=== PATIENT | female | born 1985 | race Caucasian/White ===

== ENCOUNTER 2018-01-05 10:30 | Emergency (ER) | payer MEDICAID, SELFPAY ==
[2018-01-05 10:33] VITALS: BP 114/71; PULSE 93; RESP 16; TEMP 37.1; O2SAT 97
--- NOTE | 2018-01-05 11:41 | W.ED.GENAD ---
Discharge Plan Disposition Patient Disposition: HOME Condition: Stable Discharge Details Chief Complaint: Cellulitis Clinical Impression: Bacterial infection of skin, Stress at home, Folliculitis Primary Care Provider: Natali Edmonds ED Provider: Carie Joseph Home Meds and New Rx's Prescriptions: New clindamycin HCl 150 mg capsule 450 mg PO TID 7 Days Qty: 63 RF: 0 Continue inhalational spacing device [Aerochamber Plus Flow-Vu] 1 EACH spacer 1 ea Miscellaneous QID PRNQty: 1 RF: 0 buprenorphine-naloxone [Suboxone] 1 EACH film 10 mg Sublingual DAILY RF: 0 etonogestrel [Nexplanon] 68 MG implant 68 mg SQ q3yr Qty: 1 RF: 0 fluticasone-salmeterol [Advair HFA] 8 GM HFA aerosol inhaler 2 puff Inhalation BID Qty: 1 RF: 1 citalopram 20 MG tablet 20 mg PO DAILY Qty: 30 RF: 2 ibuprofen 600 MG tablet 600 mg PO QID PRNQty: 120 RF: 1 albuterol sulfate [Proventil HFA] 6.7 GM HFA aerosol inhaler 1 - 2 puff Inhalation Q6H PRN Qty: 1 RF: 6 gabapentin 300 MG capsule 300 mg PO BID PRNQty: 60 RF: 0 methylphenidate HCl 36 MG tablet extended release 24hr 36 mg PO DAILY Qty: 30 RF: 0 fluticasone 16 GM spray,suspension 2 spry NS DAILY Qty: 3 RF: 1 propranolol 10 MG tablet 5 mg PO BID RF: 0 Discharge Instructions Instructions: Folliculitis (ED) Additional Instructions: Apply warm compresses to the affected area several times daily for 2 minutes at a time. Alternate Tylenol and Motrin as needed and directed for pain. If you no relief or you develop any worsening of symptoms, he may start the oral antibiotics. Follow-up the primary care doctor in 1 week for reevaluation. Return to the emergency department for any worsening or new concerning symptoms. Discharge Data Discharge Date/Time-TO BE ENTERED AT DEPARTURE: 01/05/18 13:39 Discharge Physician: Carie Joseph Medical Decision Making Patient is a 32-year-old female who presents with a painful lump in her perineal region for the past 5 days. Patient states it popped on its own and has been draining white and bloody discharge. Patient states the pain is improved and mainly feels sore now. She also admits to occasional nausea, decreased p.o. intake and fatigue. She denies known fever but admits to sweats. She denies abdominal pain, vomiting, diarrhea, urinary symptoms. Patient appears nontoxic and in no acute distress. She does appear mildly anxious. She does admit to stress with home life with a recent court case and filing papers for possible divorce. Vitals within normal limits. Perineal region notes a 1 x 1 cm tender lump but no discrete abscess noted. She has multiple papules in the genital region consistent with shaving and a mild folliculitis but no obvious abscess, induration or fluctuance. Patient was offered lab work for her fatigue and nausea but she declined stating she will follow-up with her primary care doctor for this. She would like a urinalysis to assess for a UTI. I discussed with patient that her perineal lump does not need incision and drainage and that warm compresses and topical antibiotics likely will be sufficient. Patient is requesting a prescription for PO antibiotics. 1300 -- UA negative for infection, notes high specific gravity consistent with possibly dehydration. She declines IV fluids and would rather go home and drink fluids. Patient feels good to go home. We will send home with a prescription for clindamycin. She is instructed to first try warm compresses, topical antibiotics, Motrin or Tylenol and that if symptoms do not improve or worsen, she can start the antibiotics. She is instructed to call her primary care doctor today to schedule follow-up appointment for reevaluation and return here if worse. HPI General Mode of arrival: ambulatory. Date/Time Provider Initiated Documentation: 01/05/18 10:40. Limitations to Documentation: no limitations. Information obtained by: patient. HPI Narrative: Patient is a 32-year-old female who presents with a painful lump in her perineal region for the past 5 days. Patient states she initially squeezed it and then it popped on its own and has been draining white and bloody discharge. Patient states the pain is improved and mainly feels sore now. She also admits to occasional nausea, decreased p.o. intake and fatigue. She denies known fever but admits to sweats. She denies abdominal pain, vomiting, diarrhea, urinary symptoms. Patient states she last took ibuprofen at 8 AM this morning. States she was last on amoxicillin a few months ago. Past medical history: Anxiety, seizures, kidney stone Surgical history: Lithotripsy, Bartholin's cyst drainage and Word catheter, Social history: Smokes tobacco, denies alcohol or drugs Medications: See list Allergies: Tetracycline, codeine, sulfa PCP: [facility] Related Data Home Medications Medication Instructions Recorded Confirmed inhalational spacing device #1 aer 12/22/14 01/05/18 [Aerochamber Plus Flow-Vu] buprenorphine-naloxone [Suboxone] 10 mg SUBLINGUAL DAILY film 02/23/16 01/05/18 etonogestrel [Nexplanon] 68 mg SQ q3yr #1 implant 11/28/16 01/05/18 citalopram 20 mg PO DAILY #30 tab 04/17/17 01/05/18 fluticasone-salmeterol [Advair HFA] 2 puff INHALATION BID #1 inhaler 04/17/17 01/05/18 ibuprofen 600 mg PO QID PRN #120 tab-cap 06/19/17 01/05/18 albuterol sulfate [Proventil HFA] 1 - 2 puff INHALATION Q6H PRN #1 07/25/17 01/05/18 inhaler gabapentin 300 mg PO BID PRN #60 cap 09/21/17 01/05/18 methylphenidate HCl 36 mg PO DAILY #30 tab-cap 09/21/17 01/05/18 fluticasone 2 spry NS DAILY #3 bottle 11/20/17 01/05/18 clindamycin HCl 450 mg PO TID 7 Days #63 cap 01/05/18 propranolol 5 mg PO BID 01/05/18 01/05/18 Previous Rx's Medication Instructions Recorded citalopram 20 mg PO DAILY #30 tab 04/17/17 fluticasone-salmeterol [Advair HFA] 2 puff INHALATION BID #1 inhaler 04/17/17 albuterol sulfate [Proventil HFA] 1 - 2 puff INHALATION Q6H PRN #1 07/25/17 inhaler fluticasone 2 spry NS DAILY #3 bottle 11/20/17 clindamycin HCl 450 mg PO TID 7 Days #63 cap 01/05/18 Allergies Allergy/AdvReac Type Severity Reaction Status Date / Time tetracycline [Tetracycline] Allergy Severe Skin Rash Unverified 01/05/18 12:08 codeine AdvReac Severe Nausea Unverified 01/05/18 12:08 Sulfa (Sulfonamide AdvReac Intermediate vomiting Unverified 01/05/18 12:08 Antibiotics) General Stated Complaint: Cellulitis KORTNEY: 4 Review of Systems Review of Systems All systems reviewed & are unremarkable except as noted in HPI and below PFSH Family History Mother Substance abuse Depression Father Essential hypertension Hyperlipidemia Sister No problems noted. Sister No problems noted. Grandmother No problems noted. Grandmother Cerebrovascular accident Son No problems noted. Son No problems noted. Medical History Anxiety Interstitial cystitis (07/23/15) Methadone maintenance therapy patient Pelvic floor dysfunction (07/23/15) Renal stone (10/13/14) Social History Smoking/Tobacco Use Status: Current every day Surgical History (09/16/13) Cystoscopy Exam Const General: cooperative and healthy appearing Orientation: alert and awake HENMT Head: normal to inspection Ears: hearing grossly normal bilaterally and external ears normal General nose exam: external nose normal Face and sinus: normal facial exam Eyes General: appearance normal, both eyes and all related structures Eyelids: eyelids normal EOM: EOM intact bilaterally Neck Neck: normal visual inspection Lymphatic: no lymphadenopathy noted Chest Chest: normal inspection of the chest Resp Effort & Inspection: normal respiratory effort and able to speak in complete sentences Auscultation: clear to auscultation bilaterally Cardio Rate: regular rate Rhythm: regular rhythm GI Inspection: normal to inspection Palpation: soft, not firm, no guarding, no hepatosplenomegaly, no masses and nontender Auscultation: normal bowel sounds External Female Exam: other (4 x 4 mm tender indurated nodule-like mass in the left posterior labia majora/left thigh. No surrounding fluctuance, erythema, edema, induration, red streaking.) Other: No vaginal discharge noted. Neuro General: alert and awake Cognition: normal cognition Speech: speech normal Gait: normal gait Motor: muscle tone normal throughout Extrem General: normal to inspection and full ROM Psych Appearance: grossly normal Mental Status: mental status grossly normal Speech and Movement: speech and movement normal Affect: normal affect Thought Process: normal Course Vital Signs Temperature 98.8 F 01/05/18 10:33 Pulse 93 H 01/05/18 10:33 Respiratory Rate 16 01/05/18 10:33 Blood Pressure 114/71 01/05/18 10:33 Pulse Oximetry 97 01/05/18 10:33 Temperature 98.8 F 01/05/18 10:33 Temperature Source Skin 01/05/18 10:33 Pulse 93 H 01/05/18 10:33 Respiratory Rate 16 01/05/18 10:33 Blood Pressure 114/71 01/05/18 10:33 Blood Pressure Position Sitting 01/05/18 10:33 Pulse Oximetry 97 01/05/18 10:33 Oxygen Delivery Method Room Air 01/05/18 10:33 Oxygen Flow Rate 0 01/05/18 10:33 Pain Level 1 01/05/18 10:33 Comment states periods have been a little off lately 01/05/18 10:33
[2018-01-05 11:49] LABS: Bilirubin Negative (Negative); Blood Negative (Negative); Clarity Clear; Glucose Negative (Negative); Ketones Negative (Negative); Leukocyte Esterase Negative (Negative); Nitrite Negative (Negative); Specific Gravity >= 1.030 (1.005-1.025); Urobilinogen 0.2 EU/dL (Up TO 0.2); pH 5.5 (5-8)
== END 2018-01-05 13:39 | disposition home or self-care (01) ==
PROVIDERS: Emergency Provider Physician Assistant
DX: L08.89 Other specified local infections of the skin and subcutaneous tissue (principal); L73.9 Follicular disorder, unspecified; Z63.5 Disruption of family by separation and divorce; R11.0 Nausea
CPT/HCPCS: 81025; 99283; 81003

== ENCOUNTER 2018-02-01 14:10 | Outpatient (REF) | payer MEDICAID, SELFPAY ==
[2018-02-02 16:36] LABS: Chlamydia Result Negative; GC Result Negative; Specimen Description URINE
== END 2018-02-01 14:30 ==
LOC: LBN 14:10
PROVIDERS: Visit Provider Nurse Practitioner Women's Health
DX: Z11.3 Encounter for screening for infections with a predominantly sexual mode of transmission (principal)
CPT/HCPCS: 87491; 87591

== ENCOUNTER 2018-02-22 09:52 | Outpatient (CLI) | payer MEDICAID, SELFPAY ==
[2018-02-22 13:18] LABS: ALT 17 U/L (12-78); AST 16 U/L (15-37); Albumin 3.7 g/dL (3.4-5.0); Alkaline Phosphatase 62 U/L (46-116); Anion Gap 12.3 mmol/L (3-11); BUN 16 mg/dL (7-18); Bilirubin, Total 0.4 mg/dL (0.2-1.0); CO2 24.7 mmol/L (21.0-32.0); CREATININE 0.69 mg/dL (0.55-1.02); Calcium 9.3 mg/dL (8.5-10.1); Chloride 102 mmol/L (98-107); Cholesterol 199 mg/dL (50-200); Glucose 106 mg/dL (70-100); HDL Cholesterol 70 mg/dL (40-60); LDL CHOLESTEROL 114 mg/dL (<100); Potassium 4.2 mmol/L (3.5-5.1); Sodium 139 mmol/L (136-145); Total Protein 6.8 g/dL (6.4-8.2); Triglyceride 72 mg/dL (30-150)
[2018-02-23 13:15] LABS: Hepatitis C Ab w Rflx HCV PCR Reactive (NEGAT)
[2018-03-06 14:35] LABS: HCV RNA Detection Quantitative Undetected IU/mL (UNDECT)
== END 2018-02-22 10:12 ==
PROVIDERS: PCP Nurse Practitioner Family; Visit Provider Nurse Practitioner Family
DX: R53.83 Other fatigue (principal); F41.1 Generalized anxiety disorder; F17.290 Nicotine dependence, other tobacco product, uncomplicated; Z87.898 Personal history of other specified conditions; Z11.59 Encounter for screening for other viral diseases
CPT/HCPCS: 80053; 80061; 82306; 83721; 86803; 87522

== ENCOUNTER 2018-03-28 10:58 | Emergency (ER) | payer MEDICAID, SELFPAY ==
--- NOTE | 2018-03-28 11:04 | W.ED.GENAD ---
Discharge Plan Disposition Patient Disposition: HOME Condition: Fair Discharge Details Chief Complaint: RespSymp Clinical Impression: Influenza Primary Care Provider: Nika Michaud ED Provider: Tita Pulido Home Meds and New Rx's Prescriptions: New benzonatate [Tessalon Perles] 100 mg capsule 100 mg PO QID PRN (Reason: cough) Qty: 14 RF: 0 Continued norgestimate-ethinyl estradiol [Sprintec (28)] 0.25-35 mg-mcg tablet 1 tab PO DAILY Qty: 84 RF: 3 amoxicillin-pot clavulanate 875-125 mg tablet 1 tab PO BID Qty: 14 RF: 0 citalopram 20 mg tablet 20 mg PO DAILY Qty: 90 RF: 4 inhalational spacing device [Aerochamber Plus Flow-Vu] 1 EACH spacer 1 ea Miscellaneous QID PRNQty: 1 RF: 0 buprenorphine-naloxone [Suboxone] 1 EACH film 10 mg Sublingual DAILY RF: 0 albuterol sulfate [Proventil HFA] 6.7 GM HFA aerosol inhaler 1 - 2 puff Inhalation Q6H PRN Qty: 1 RF: 6 cholecalciferol (vitamin D3) 50,000 unit capsule 50,000 unit PO QWEEK Qty: 8 RF: 0 cholecalciferol (vitamin D3) 2,000 unit capsule 2,000 unit PO DAILY Qty: 90 RF: 4 Discharge Instructions Instructions: Influenza (ED) Additional Instructions: Encourage hydration. Tylenol and/or Motrin as needed for discomfort. Take Tessalon Perles as prescribed to help with cough. If you develop shortness of breath, difficulty breathing, or other new/worsening symptoms please seek care urgently once again. Follow up with primary care within the next week if not improving. Referrals: Nika Michaud, [facility] [Primary Care Provider] - Medical Decision Making Patient is a 33-year-old female presenting today with chief complaint of flulike symptoms. She reports that over the weekend her son was evaluated emergency department and diagnosed with that. He was placed on Tamiflu. She is concerned that she may contract the same illness. Reports that symptoms have been going on over 3 days now. Endorses bilateral ear discomfort, rhinorrhea, sore throat, cough. She reports she has chronic nausea which is unchanged. No vomiting or diarrhea. Endorses body aches. Has had chills. On exam, no acute abnormality is are noted. She does have a dry cough but lungs are clear, no wheezes rales or rhonchi. Patient is slightly tachycardic at 101 but afebrile with vital signs otherwise within normal limits. Patient is hydrating. She does have a history of anxiety, depression, GERD, kidney stones, narcotic abuse UPT negative Advised patient that at this point, she is not immunocompromised and is out of the window to begin Tamiflu, no treatment is warranted. I did offer influenza testing which she declined. Given her son's recent positive test as well as her symptoms, advised that she likely contracted the same illness. I encouraged hand hygiene. We discussed the risks associated with influenza and new/worsening symptoms to be mindful of that should prompt her to seek care urgently once again. Advise follow-up with primary care in 1 week if symptoms are not improving. All of her questions and concerns were addressed and she is in agreement this plan. Will prescribe Tessalon Perles to help with symptom medic management. HPI General Mode of arrival: ambulatory. Date/Time Provider Initiated Documentation: 03/28/18 10:58. Limitations to Documentation: no limitations. Information obtained by: patient. History of Present Illness 33 year old F presents to the emergency department with the chief complaint of URI, described as moderate, and is localized to the face (endorsing bilateral ear discomfort) and mouth (sore throat). Patient reports no radiation. Patient started experiencing this day(s) (3) and it has been constant. No relieving factors improve symptom(s), No exacerbating factors reported . Patient notes cough, fever/chills (endorses chills, no documented fevers), nausea/vomiting (endorses chronic, unchanged nausea) and shortness of breath (with cough); denies chest pain, headaches, loss of appetite, rash and syncope. Patient did receive the following treatments prior to arrival, none Related Data Home Medications Medication Instructions Recorded Confirmed inhalational spacing device #1 aer 12/22/14 02/21/18 [Aerochamber Plus Flow-Vu] buprenorphine-naloxone [Suboxone] 10 mg SUBLINGUAL DAILY film 02/23/16 02/21/18 albuterol sulfate [Proventil HFA] 1 - 2 puff INHALATION Q6H PRN #1 07/25/17 02/21/18 inhaler norgestimate 0.25 mg-ethinyl 1 tab PO DAILY #84 tab 02/01/18 02/21/18 estradiol 35 mcg tablet amoxicillin 875 mg-potassium 1 tab PO BID #14 tab 02/21/18 02/21/18 clavulanate 125 mg tablet citalopram 20 mg tablet 20 mg PO DAILY #90 tab 02/21/18 02/21/18 cholecalciferol (vitamin D3) 2,000 2,000 unit PO DAILY #90 cap 02/25/18 unit capsule cholecalciferol (vitamin D3) 50,000 unit PO QWEEK #8 cap 02/25/18 50,000 unit capsule benzonatate [Tessalon Perles] 100 mg PO QID PRN #14 cap 03/28/18 Previous Rx's Medication Instructions Recorded albuterol sulfate [Proventil HFA] 1 - 2 puff INHALATION Q6H PRN #1 07/25/17 inhaler norgestimate 0.25 mg-ethinyl 1 tab PO DAILY #84 tab 02/01/18 estradiol 35 mcg tablet amoxicillin 875 mg-potassium 1 tab PO BID #14 tab 02/21/18 clavulanate 125 mg tablet citalopram 20 mg tablet 20 mg PO DAILY #90 tab 02/21/18 cholecalciferol (vitamin D3) 2,000 2,000 unit PO DAILY #90 cap 02/25/18 unit capsule cholecalciferol (vitamin D3) 50,000 unit PO QWEEK #8 cap 02/25/18 50,000 unit capsule benzonatate [Tessalon Perles] 100 mg PO QID PRN #14 cap 03/28/18 Allergies Allergy/AdvReac Type Severity Reaction Status Date / Time tetracycline [Tetracycline] Allergy Severe Skin Rash Unverified 02/21/18 14:18 codeine AdvReac Severe Nausea Unverified 02/21/18 14:18 Sulfa (Sulfonamide AdvReac Intermediate vomiting Unverified 02/21/18 14:18 Antibiotics) General KORTNEY: 4 Review of Systems Constitutional Reports as per HPI and Denies headache(s) Eyes Reports as per HPI, Denies eye discharge and Denies irritation ENT Reports as per HPI, Denies ear discharge, Reports otalgia, Denies headache(s), Denies hoarseness, Reports nasal congestion, Reports nasal discharge, Reports neck pain (reports enlarged lymphnodes which are tender), Denies sinus pain, Reports sinus pressure, Reports sore throat and Denies throat swelling Cardiovascular Reports as per HPI, Denies chest pain, Reports dyspnea (with cough) and Denies dyspnea on exertion Respiratory Reports as per HPI, Denies chest congestion, Reports cough, Reports dyspnea (with cough), Denies dyspnea on exertion and Denies wheezing Gastrointestinal Reports as per HPI, Denies abdominal pain, Denies change in bowel habits, Reports nausea and Denies vomiting Musculoskeletal Reports neck pain (reports enlarged lymphnodes which are tender) Integumentary/Breasts Reports as per HPI and Denies rash Neurologic Denies headache(s) Allergic/Immunologic Denies throat swelling and Denies wheezing [facility] Medical History Generalized anxiety disorder (Chronic) History of heroin abuse (Chronic 04/21/15) Interstitial cystitis (Resolved 07/23/15) Methadone maintenance therapy patient (Resolved) Narcotic overdose (Resolved) Pelvic floor dysfunction (Resolved 07/23/15) Renal stone (Resolved 10/13/14) Hepatitis C antibody test positive (Ruled-out 03/09/16) Surgical History (09/16/13) Cystoscopy Social History Smoking/Tobacco Use Status: Current every day tobacco type: e-cigarettes quit status: quit date established History History 3 Para 0 Hx # Term Pregnancies Multiple births Hx # Pregnancies Ectopic pregnancies AB induced Hx Number of Living Children AB spontaneous Exam Const General: cooperative, healthy appearing, comfortable, no acute distress, well developed and well groomed Nutritional Appearance: average body habitus and well nourished Orientation: alert and awake HENCO Head: normal to inspection, normocephalic and atraumatic Ears: hearing grossly normal bilaterally, external ears normal and TM's normal bilaterally General nose exam: external nose normal and nares normal Face and sinus: normal facial exam, sinuses nontender and face symmetric Mouth: oral mucosae normal, lip normal, tongue normal, oropharynx normal and moist mucous membranes Teeth and gingiva: dentition normal Throat: posterior oropharynx normal, tonsils normal and uvula midline Eyes General: appearance normal, both eyes and all related structures Neck Neck: normal visual inspection, full ROM, no lymphadenopathy and no meningeal signs Resp Effort & Inspection: normal respiratory effort, able to speak in complete sentences and no respiratory distress Auscultation: clear to auscultation bilaterally, no rales, no rhonchi and no wheezes Cardio Rate: regular rate Rhythm: regular rhythm Heart Sounds: S1 normal and S2 normal GI Inspection: normal to inspection, no edema and non-distended Palpation: soft, no hepatosplenomegaly, no guarding and nontender Auscultation: normal bowel sounds Skin General skin exam: no rashes or lesions noted Neuro General: alert and awake Cognition: normal cognition Speech: speech normal Gait: normal gait Psych Appearance: grossly normal and well kempt Mental Status: mental status grossly normal Speech and Movement: speech and movement normal
[2018-03-28 11:05] VITALS: BP 132/76; PULSE 101; RESP 18; TEMP 36.5; O2SAT 98
--- NOTE | 2018-03-28 11:23 | ED.GENADUL_ITS ---
Discharge Plan Disposition Patient Disposition: HOME Condition: Fair Discharge Details Chief Complaint: RespSymp Clinical Impression: Influenza Primary Care Provider: Nika Michaud ED Provider: Tita Pulido Home Meds and New Rx's Prescriptions: New benzonatate [Tessalon Perles] 100 mg capsule 100 mg PO QID PRN (Reason: cough) Qty: 14 RF: 0 Continued norgestimate-ethinyl estradiol [Sprintec (28)] 0.25-35 mg-mcg tablet 1 tab PO DAILY Qty: 84 RF: 3 amoxicillin-pot clavulanate 875-125 mg tablet 1 tab PO BID Qty: 14 RF: 0 citalopram 20 mg tablet 20 mg PO DAILY Qty: 90 RF: 4 inhalational spacing device [Aerochamber Plus Flow-Vu] 1 EACH spacer 1 ea Miscellaneous QID PRNQty: 1 RF: 0 buprenorphine-naloxone [Suboxone] 1 EACH film 10 mg Sublingual DAILY RF: 0 albuterol sulfate [Proventil HFA] 6.7 GM HFA aerosol inhaler 1 - 2 puff Inhalation Q6H PRN Qty: 1 RF: 6 cholecalciferol (vitamin D3) 50,000 unit capsule 50,000 unit PO QWEEK Qty: 8 RF: 0 cholecalciferol (vitamin D3) 2,000 unit capsule 2,000 unit PO DAILY Qty: 90 RF: 4 Discharge Instructions Instructions: Influenza (ED) Additional Instructions: Encourage hydration. Tylenol and/or Motrin as needed for discomfort. Take Tessalon Perles as prescribed to help with cough. If you develop shortness of breath, difficulty breathing, or other new/worsening symptoms please seek care urgently once again. Follow up with primary care within the next week if not improving. Referrals: Nika Michaud, KENNEL AIDE [Primary Care Provider] - Medical Decision Making Patient is a 33-year-old female presenting today with chief complaint of flulike symptoms. She reports that over the weekend her son was evaluated emergency department and diagnosed with that. He was placed on Tamiflu. She is concerned that she may contract the same illness. Reports that symptoms have been going on over 3 days now. Endorses bilateral ear discomfort, rhinorrhea, sore throat, cough. She reports she has chronic nausea which is unchanged. No vomiting or diarrhea. Endorses body aches. Has had chills. On exam, no acute abnormality is are noted. She does have a dry cough but lungs are clear, no wheezes rales or rhonchi. Patient is slightly tachycardic at 101 but afebrile with vital signs otherwise within normal limits. Patient is hydrating. She does have a history of anxiety, depression, GERD, kidney stones, narcotic abuse UPT negative Advised patient that at this point, she is not immunocompromised and is out of the window to begin Tamiflu, no treatment is warranted. I did offer influenza testing which she declined. Given her son's recent positive test as well as her symptoms, advised that she likely contracted the same illness. I encouraged hand hygiene. We discussed the risks associated with influenza and ne w/worsening symptoms to be mindful of that should prompt her to seek care urgently once again. Advise follow-up with primary care in 1 week if symptoms are not improving. All of her questions and concerns were addressed and she is in agreement this plan. Will prescribe Tessalon Perles to help with symptom medic management. HPI General Mode of arrival: ambulatory . Date/Time Provider Initiated Documentation: 03/28/18 10:58 . Limitations to Documentation: no limitations . Information obtained by: patient . History of Present Illness 33 year old F presents to the emergency department with the chief complaint of URI, described as moderate, and is localized to the face (endorsing bilateral ear discomfort) and mouth (sore throat). Patient reports no radiation. Patient started experiencing this day(s) (3) and it has been constant. No relieving factors improve symptom(s), No exacerbating factors reported . Patient notes cough, fever/chills (endorses chills, no documented fevers), nausea/vomiting (endorses chronic, unchanged nausea) and shortness of breath (with cough); denies chest pain, headaches, loss of appetite, rash and syncope. Patient did receive the following treatments prior to arrival, none Related Data Home Medications Medication Instructions Recorded Confirmed inhalational spacing device #1 aer 12/22/14 02/21/18 [Aerochamber Plus Flow-Vu] buprenorphine-naloxone [Suboxone] 10 mg SUBLINGUAL DAILY film 02/23/16 02/21/18 albuterol sulfate [Proventil HFA] 1 - 2 puff INHALATION Q6H PRN #1 07/25/17 02/21/18 inhaler norgestimate 0.25 mg-ethinyl 1 tab PO DAILY #84 tab 02/01/18 02/21/18 estradiol 35 mcg tablet amoxicillin 875 mg-potassium 1 tab PO BID #14 tab 02/21/18 02/21/18 clavulanate 125 mg tablet citalopram 20 mg tablet 20 mg PO DAILY #90 tab 02/21/18 02/21/18 cholecalciferol (vitamin D3) 2,000 2,000 unit PO DAILY #90 cap 02/25/18 unit capsule cholecalciferol (vitamin D3) 50,000 unit PO QWEEK #8 cap 02/25/18 50,000 unit capsule benzonatate [Tessalon Perles] 100 mg PO QID PRN #14 cap 03/28/18 Previous Rx's Medication Instructions Recorded albuterol sulfate [Proventil HFA] 1 - 2 puff INHALATION Q6H PRN #1 07/25/17 inhaler norgestimate 0.25 mg-ethinyl 1 tab PO DAILY #84 tab 02/01/18 estradiol 35 mcg tablet amoxicillin 875 mg-potassium 1 tab PO BID #14 tab 02/21/18 clavulanate 125 mg tablet citalopram 20 mg tablet 20 mg PO DAILY #90 tab 02/21/18 cholecalciferol (vitamin D3) 2,000 2,000 unit PO DAILY #90 cap 02/25/18 unit capsule cholecalciferol (vitamin D3) 50,000 unit PO QWEEK #8 cap 02/25/18 50,000 unit capsule benzonatate [Tessalon Perles] 100 mg PO QID PRN #14 cap 03/28/18 Allergies Allergy/AdvReac Type Severity Reaction Status Date / Time tetracycline [Tetracycline] Allergy Severe Skin Rash Unverified 02/21/18 14:18 codeine AdvReac Severe Nausea Unverified 02/21/18 14:18 Sulfa (Sulfonamide AdvReac Intermediate vomiting Unverified 02/21/18 14:18 Antibiotics) General KORTNEY: 4 Review of Systems Constitutional Reports as per HPI and Denies headache(s) Eyes Reports as per HPI, Denies eye discharge and Denies irritation ENT Reports as per HPI, Denies ear discharge, Reports otalgia, Denies headache(s), Denies hoarseness, Reports nasal congestion, Reports nasal discharge, Reports neck pain (reports enlarged lymphnodes which are tender), Denies sinus pain, Reports sinus pressure, Reports sore throat and Denies throat swelling Cardiovascular Reports as per HPI, Denies chest pain, Reports dyspnea (with cough) and Denies dyspnea on exertion Respiratory Reports as per HPI, Denies chest congestion, Reports cough, Reports dyspnea (with cough), Denies dyspnea on exertion and Denies wheezing Gastrointestinal Reports as per HPI, Denies abdominal pain, Denies change in bowel habits, Reports nausea and Denies vomiting Musculoskeletal Reports neck pain (reports enlarged lymphnodes which are tender) Integumentary/Breasts Reports as per HPI and Denies rash Neurologic Denies headache(s) Allergic/Immunologic Denies throat swelling and Denies wheezing [facility] Medical History Generalized anxiety disorder (Chronic) History of heroin abuse (Chronic 04/21/15) Interstitial cystitis (Resolved 07/23/15) Methadone maintenance therapy patient (Resolved) Narcotic overdose (Resolved) Pelvic floor dysfunction (Resolved 07/23/15) Renal stone (Resolved 10/13/14) Hepatitis C antibody test positive (Ruled-out 03/09/16) Surgical History (09/16/13) Cystoscopy Social History Smoking/Tobacco Use Status: Current every day tobacco type: e-cigarettes quit status: quit date established History History 3 Para 0 Hx # Term Pregnancies Multiple births Hx # Pregnancies Ectopic pregnancies AB induced Hx Number of Living Children AB spontaneous Exam Const General: cooperative, healthy appearing, comfortable, no acute distress, well developed and well groomed Nutritional Appearance: average body habitus and well nourished Orientation: alert and awake [facility] Head: normal to inspection, normocephalic and atraumatic Ears: hearing grossly normal bilaterally, external ears normal and TM's normal bilaterally General nose exam: external nose normal and nares normal Face and sinus: normal facial exam, sinuses nontender and face symmetric Mouth: oral mucosae normal, lip normal, tongue normal, oropharynx normal and moist mucous membranes Teeth and gingiva: dentition normal Throat: posterior oropharynx normal, tonsils normal and uvula midline Eyes General: appearance normal, both eyes and all related structures Neck Neck: normal visual inspection, full ROM, no lymphadenopathy and no meningeal signs Resp Effort & Inspection: normal respiratory effort, able to speak in complete sentences and no respiratory distress Auscultation: clear to auscultation bilaterally, no rales, no rhonchi and no wheezes Cardio Rate: regular rate Rhythm: regular rhythm Heart Sounds: S1 normal and S2 normal GI Inspection: normal to inspection, no edema and non-distended Palpation: soft, no hepatosplenomegaly, no guarding and nontender Auscultation: normal bowel sounds Skin General skin exam: no rashes or lesions noted Neuro General: alert and awake Cognition: normal cognition Speech: speech normal Gait: normal gait Psych Appearance: grossly normal and well kempt Mental Status: mental status grossly normal Speech and Movement: speech and movement normal
== END 2018-03-28 11:28 | disposition home or self-care (01) ==
LOC: ER 11:32
PROVIDERS: Emergency Provider Physician Assistant; PCP Nurse Practitioner Family
DX: J10.1 Influenza due to other identified influenza virus with other respiratory manifestations (principal)
CPT/HCPCS: 81025; 99283

== ENCOUNTER 2018-12-13 11:52 | Outpatient (CLI) | payer MEDICAID, SELFPAY ==
[2018-12-13 12:51] LABS: Hemoglobin A1C 5.6 % (4.5-6.2)
[2018-12-13 13:54] LABS: ALT 21 U/L (14-59); AST 13 U/L (15-37); Albumin 3.9 g/dL (3.4-5.0); Alkaline Phosphatase 68 U/L (46-116); Anion Gap 9.1 mmol/L (3-11); BUN 11 mg/dL (7-18); Bilirubin, Total 0.1 mg/dL (0.2-1.0); CO2 26.9 mmol/L (21.0-32.0); CREATININE 0.67 mg/dL (0.55-1.02); Calcium 9.1 mg/dL (8.5-10.1); Chloride 105 mmol/L (98-107); Glucose 103 mg/dL (70-100); Sodium 141 mmol/L (136-145); Total Protein 6.6 g/dL (6.4-8.2)
[2018-12-13 14:43] LABS: Vitamin D 25 Total 48.5 ng/ml (30-100)
== END 2018-12-13 12:12 ==
PROVIDERS: PCP Nurse Practitioner Family; Visit Provider Nurse Practitioner Family
DX: E55.9 Vitamin D deficiency, unspecified (principal); R73.01 Impaired fasting glucose
CPT/HCPCS: 36415; 80053; 82306; 83036

== ENCOUNTER 2018-12-26 09:24 | Emergency (ER) | payer MEDICAID, SELFPAY ==
[2018-12-26 09:25] VITALS: BP 120/79; PULSE 76; RESP 16; TEMP 37; O2SAT 98
[2018-12-26 10:10] LABS: Bilirubin Negative (Negative); Blood Negative (Negative); Clarity Clear (Clear); Glucose Negative (Negative); Ketones Negative (Negative); Leukocyte Esterase Negative (Negative); Nitrite Negative (Negative); Specific Gravity 1.015 (1.005-1.025); Urobilinogen 0.2 EU/dL (Up TO 0.2)
[2018-12-26 10:24] LABS: *AMPHETAMINES SCREEN URINE POSITIVE (Negative); *BARBITURATES SCREEN URINE Negative (Negative); *BENZODIAZEPINES SCREEN URINE Negative (Negative); Cannabinoids THC Negative (Negative); Cocaine Screen,Urine Negative (Negative); METHADONE URINE SCREEN Negative (Negative); OPIATES URINE SCREEN Negative (Negative); Tricyclic Antidepressants Negative (Negative)
--- NOTE | 2018-12-26 10:37 | W.ED.GENAD ---
Discharge Plan Disposition Patient Disposition: HOME Discharge Details Chief Complaint: Anxiety Clinical Impression: Anxiety, Substance abuse Primary Care Provider: Nika Michaud ED Provider: Berry Pérez Home Meds and New Rx's Prescriptions: Continued norgestimate-ethinyl estradiol [Sprintec (28)] 0.25-35 mg-mcg tablet 1 tab PO DAILY Qty: 84 RF: 3 buprenorphine-naloxone [Suboxone] 4-1 mg film 1 film SL DAILY RF: 0 citalopram 40 mg tablet 40 mg PO DAILY Qty: 90 RF: 4 propranolol 10 mg tablet 10 mg PO BID RF: 0 albuterol sulfate [Proventil HFA] 6.7 GM HFA aerosol inhaler 1 - 2 puff Inhalation Q6H PRN Qty: 1 RF: 6 cholecalciferol (vitamin D3) 2,000 unit capsule 2,000 unit PO DAILY Qty: 90 RF: 4 No Action atomoxetine [Strattera] 40 mg capsule 40 mg PO DAILY Qty: 90 RF: 0 clindamycin HCl 300 mg capsule 300 mg PO BID Qty: 14 RF: 0 Discharge Instructions Instructions: Polysubstance Abuse (ED), Anxiety (ED) Additional Instructions: Please contact your primary care physician to arrange follow-up. Please follow-up with [facility] and [facility]. Return to the ER for any worsening or new concerning symptoms or if you just need a safe place to go. [facility]Provider [facility]] [facility] [Outside] Nika Michaud, MONIQUE [Primary Care Provider] - Discharge Data Discharge Date/Time-TO BE ENTERED AT DEPARTURE: 12/26/18 15:55 Medical Decision Making 10:45 --33-year-old female with history of anxiety disorder, here with severe anxiety concern for hypomania and substance abuse self-medicating with gabapentin, Vyvanse and Valium. Patient is anxious on exam with somewhat tangential and rapid speech. Plan to check screening labs. I have consulted mental health crisis screener to evaluate the patient. 14:49 --labs reviewed: UDS positive for amphetamine. Negative urine . Patient reassessed and still very anxious, worse now. We will give Ativan 1 mg orally. Patient is medically cleared for mental health treatment. Patient being assessed by mental health crisis screener for potential hospitalization. 15:25 -- Patient now feeling better and requesting discharge. Mental health to assist in arranging outpatient follow-up. HPI General Mode of arrival: ambulatory. Date/Time Provider Initiated Documentation: 12/26/18 09:37. Limitations to Documentation: no limitations. Information obtained by: patient. HPI Narrative: 33-year-old female with history of anxiety disorder, here with severe anxiety. Patient notes that she feels like she is losing control and has been confused recently with severe anxiety. She believes she is in a manic state. Patient notes significant life stressors including recent of a friend. She states that she has been self-medicating with gabapentin, Vyvanse, and Valium. She also notes that she used cocaine a couple weeks ago. She states she is been taking her prescribed medications including Celexa, propanolol, clindamycin, Suboxone. Clindamycin has been prescribed for sinus infection. She denies suicidal ideation or homicidal ideation. No visual or auditory hallucinations but she does state that she has trouble knowing what is real. Related Data Home Medications Medication Instructions Recorded Confirmed albuterol sulfate [Proventil HFA] 1 - 2 puff INHALATION Q6H PRN #1 07/25/17 01/09/19 inhaler norgestimate 0.25 mg-ethinyl 1 tab PO DAILY #84 tab 02/01/18 12/28/18 estradiol 35 mcg tablet cholecalciferol (vitamin D3) 2,000 2,000 unit PO DAILY #90 cap 02/25/18 01/09/19 unit capsule citalopram 40 mg tablet 40 mg PO DAILY #90 tab 07/04/18 01/09/19 propranolol 10 mg tablet 10 mg PO BID tab 11/27/18 12/28/18 buprenorphine 4 mg-naloxone 1 mg 1 film SL DAILY 12/13/18 01/09/19 sublingual film atomoxetine 40 mg capsule 40 mg PO DAILY #90 cap 12/28/18 01/09/19 clindamycin HCl 300 mg capsule 300 mg PO BID #14 cap 01/10/19 Previous Rx's Medication Instructions Recorded albuterol sulfate [Proventil HFA] 1 - 2 puff INHALATION Q6H PRN #1 07/25/17 inhaler norgestimate 0.25 mg-ethinyl 1 tab PO DAILY #84 tab 02/01/18 estradiol 35 mcg tablet cholecalciferol (vitamin D3) 2,000 2,000 unit PO DAILY #90 cap 02/25/18 unit capsule citalopram 40 mg tablet 40 mg PO DAILY #90 tab 07/04/18 atomoxetine 40 mg capsule 40 mg PO DAILY #90 cap 12/28/18 clindamycin HCl 300 mg capsule 300 mg PO BID #14 cap 01/10/19 Allergies Allergy/AdvReac Type Severity Reaction Status Date / Time tetracycline [Tetracycline] Allergy Severe Skin Rash Unverified 01/09/19 14:52 codeine AdvReac Severe Nausea Unverified 01/09/19 14:52 Sulfa (Sulfonamide AdvReac Intermediate vomiting Unverified 01/09/19 14:52 Antibiotics) General Stated Complaint: PsychEval KORTNEY: 3 Review of Systems Review of Systems ROS Unobtainable: All systems reviewed & are unremarkable except as noted in HPI and below Constitutional Constitutional: Reports body ache(s) ENT Ears, Nose, Mouth, and Throat: Reports facial pain (sinus pain intermittent) Cardiovascular Cardiovascular: Denies chest pain Neurologic Neurologic: Reports confusion Psychiatric Psychiatric: Reports anxiety, Reports confusion, Denies visual hallucinations, Denies homicidal ideation and Denies suicidal ideation [facility] Medical History Generalized anxiety disorder (Chronic) History of heroin abuse (Chronic) Quit 2015. On Subuxone through [facility] Hyperlipidemia (Chronic) Oral contraceptive pill surveillance (Chronic) Vitamin D deficiency (Chronic) Surgical History S/P cystoscopy (Acute) Family History Mother Substance abuse Depression Father Essential hypertension Hyperlipidemia Depression Sister Alcohol abuse Sister Alcohol abuse Maternal Grandfather No problems noted. Maternal Grandmother No problems noted. Paternal Grandfather Alzheimer's dementia Paternal Grandmother , in her 70s Alzheimer's dementia Son No problems noted. Son No problems noted. Social History Smoking/Tobacco Use Status: Current every day Tobacco Type: e-cigarettes Quit status: quit date established Drug use: Current Sobriety Details: has been self medicating, Vyvanse and valium, since . Since stopping self medicating she is having difficulty dealing with the friend's Do you feel safe at home: Yes Do you feel safe in your relationship?: Yes Female Reproductive History Menstrual control method: pills History History 3 Para 2 Hx # Term Pregnancies Multiple births Hx # Pregnancies Ectopic pregnancies AB induced 1 Hx Number of Living Children 2 AB spontaneous Exam Const General: cooperative and no acute distress HENMT Head: normocephalic Mouth: moist mucous membranes Eyes Conjunctivae: normal conjunctivae Sclera: normal sclerae Neck Neck: trachea midline and supple Resp Auscultation: clear to auscultation bilaterally, no rales, no rhonchi and no wheezes Cardio Jugular venous pressure: no JVD Rate: regular rate and not tachycardic Rhythm: regular rhythm GI Palpation: soft, not firm, no guarding, no masses, not rigid and nontender Skin General skin exam: no rashes or lesions noted Neuro General: alert, awake, oriented x3 and tone normal Extrem General: no edema Psych Appearance: grossly normal Speech and Movement: restless Mood: manic mood Affect: anxious affect Attitude: cooperative Thought Process: tangential Thought Content: normal Insight: fair Course Vital Signs Vital signs: Vital Signs Temperature 37 C 12/26/18 09:25 Pulse 76 12/26/18 09:25 Respiratory Rate 16 12/26/18 09:25 Blood Pressure 120/79 12/26/18 09:25 Pulse Oximetry 98 12/26/18 09:25 Temperature 37 C 12/26/18 09:25 Temperature Source Temporal Artery Scan 12/26/18 09:25 Pulse 76 12/26/18 09:25 Respiratory Rate 16 12/26/18 09:25 Respiratory Effort Non-Labored 12/26/18 09:36 Blood Pressure 120/79 12/26/18 09:25 Blood Pressure Position Sitting 12/26/18 09:25 Pulse Oximetry 98 12/26/18 09:25 Oxygen Delivery Method Room Air 12/26/18 09:25 Oxygen Flow Rate 0 12/26/18 09:25 Pain Level 0 12/26/18 09:25 Lab/Test Results Lab/Test Results: Laboratory Tests Range/Units 12/26/18 12/26/18 10:00 10:00 Urine Color (Yellow) Yellow Urine Clarity (Clear) Clear Urine pH (5-8) 7.0 Ur Specific [place] (1.005-1.025) 1.015 Urine Protein (Negative) mg/dL Negative Urine Ketones (Negative) mg/dL Negative Urine Blood (Negative) Negative Urine Nitrite (Negative) Negative Urine Bilirubin (Negative) Negative Urine Urobilinogen (Up TO 0.2) EU/dL 0.2 Ur Leukocyte Esterase (Negative) Negative Urine Glucose (Negative) mg/dL Negative Urine Opiates Screen (Negative) Negative Urine Methadone Screen (Negative) Negative Ur Barbiturates Screen (Negative) Negative Ur Tricyclics Screen (Negative) Negative Ur Amphetamines Screen (Negative) Positive U Benzodiazepines Scrn (Negative) Negative Urine Cocaine Screen (Negative) Negative Ur THC Screen (Negative) Negative POC- Test(urine) Negative
[2018-12-26 10:59] LABS: Salicylate 5.7 mg/dL (2.8-20.0)
[2018-12-26 11:00] VITALS: RESP 16
[2018-12-26 11:01] LABS: RBC 4.45 m/cumm (4.00-5.20)
[2018-12-26 11:02] LABS: Acetaminophen < 2 ug/mL (10-30); HCT 40.4 % (36.0-46.0); HGB 13.9 g/dL (12.0-15.5); Mean Corp. HGB Concentration 34.4 g/dL (32.0-36.0); Mean Corpuscular Hemoglobin 31.2 pg (27.0-33.0); Mean Corpuscular Volume 90.8 fL (80-95); Mean Platelet Volume 10.1 fL (8.0-11.0); Platelet Count 321 x1000/uL (130-400); RBC Distribution Width 12.6 % (11.7-14.6)
[2018-12-26 11:08] LABS: Absolute Basophil Count 0.05 k/cumm (0.0-0.2); Absolute Monocyte Count 0.31 k/cumm (0.11-0.7); Absolute Neutrophil Count 2.04 k/cumm (1.2-6.7); Atypical Lymphocytes % 3; Diff Comment Manual Differential; RBC Morphology Normal
[2018-12-26 11:11] LABS: ALT 13 U/L (14-59); AST 16 U/L (15-37); Alkaline Phosphatase 70 U/L (46-116); Anion Gap 11.1 mmol/L (3-11); BUN 12 mg/dL (7-18); Bilirubin, Total 0.3 mg/dL (0.2-1.0); CO2 24.9 mmol/L (21.0-32.0); Calcium 9.2 mg/dL (8.5-10.1); Chloride 105 mmol/L (98-107); Glucose 141 mg/dL (70-100); Potassium 4.1 mmol/L (3.5-5.1); Sodium 141 mmol/L (136-145)
[2018-12-26 11:22] LABS: ETHANOL BLOOD < 3.0 mg/dL (<3)
[2018-12-26 11:31] VITALS: BP 115/77; PULSE 66; RESP 14; TEMP 36.8; O2SAT 97
--- NOTE | 2018-12-26 12:19 | NUR.NOTE ---
Patient providered with a meal and drinkNursing Note:
[2018-12-26] MEDS: Nicotine 4 MG GUM (12:26)
--- NOTE | 2018-12-26 12:55 | NUR.NOTE ---
SYLVIA into examine patient Nursing Note:
[2018-12-26] MEDS: LORazepam 1 MG TAB (13:22)
--- NOTE | 2018-12-26 13:23 | NUR.NOTE ---
patient medicated per MD order Nursing Note:
--- NOTE | 2018-12-26 14:06 | PDOC.MHCN ---
Mental Health Crisis Note Presenting Issue How did you arrive at the ED and why did you come: Dyan came in highly agitated.The clt claims she is unable to maintain her thoughts for any level of time. She is concerned that she'll . Clt stated that she found her friend last . Unclear whether it was natural causes or OD. Clt admits that she was traumatized and may triggered her situation today. Precipitating Factors Clt is willing to contract safety. The clt is willing to be voluntarily placed. Clt has hx of polysubstance abuse. Disposition BEHAVIOR: Clt appears highly agitated. She describes herself in manic-like state but states she has no hx of manic behavior. EYE CONTACT: Eye contact was good. MOOD: Clt was cooperative and trying to keep herself composed. AFFECT: Anxious APPETITE: Clt claims she has been missing of the last days. SLEEP(trouble falling/staying asleep: Clt said she got good sleep last night but 3 days prior she has been up. Plan To Dyan in a therapeutic placement where her mental state can be stabilized and she can address her SA issues. Signature Clinician's Name/Title: Raj Marques, MS QMHP
[2018-12-26 15:43] VITALS: BP 85/57; PULSE 71; RESP 14; TEMP 35.6; O2SAT 98
== END 2018-12-26 15:55 | disposition home or self-care (01) ==
PROVIDERS: Emergency Provider Student in an Organized Health Care Education/Training Program; PCP Nurse Practitioner Family
DX: F41.9 Anxiety disorder, unspecified (principal); F19.10 Other psychoactive substance abuse, uncomplicated; F30.8 Other manic episodes
CPT/HCPCS: 36415; 80053; 80307; 81025; 99283; 80320; 80329; 81003; 84443; 85025

== ENCOUNTER 2019-02-23 17:59 | Emergency (ER) | payer MEDICAID, SELFPAY ==
[2019-02-23 18:03] VITALS: BP 132/54; PULSE 81; RESP 18; TEMP 36.7; O2SAT 98
[2019-02-23 18:12] VITALS: RESP 18
--- NOTE | 2019-02-23 18:22 | ED.GENADUL_ITS ---
Discharge Plan Disposition Patient Disposition: HOME Discharge Details Chief Complaint: Dizzy/Sync Clinical Impression: Sinusitis Primary Care Provider: Nika Michaud ED Provider: Berry Pérez Home Meds and New Rx's Prescriptions: New amoxicillin-pot clavulanate [Augmentin] 875-125 mg tablet 1 tab PO BID Qty: 19 RF: 0 Continued norgestimate-ethinyl estradiol [Sprintec (28)] 0.25-35 mg-mcg tablet 1 tab PO DAILY Qty: 84 RF: 3 buprenorphine-naloxone [Suboxone] 4-1 mg film 1 film SL DAILY RF: 0 citalopram 40 mg tablet 40 mg PO DAILY Qty: 90 RF: 4 propranolol 10 mg tablet 10 mg PO BID RF: 0 albuterol sulfate [Proventil HFA] 6.7 GM HFA aerosol inhaler 1 - 2 puff Inhalation Q6H PRN Qty: 1 RF: 6 cholecalciferol (vitamin D3) 2,000 unit capsule 2,000 unit PO DAILY Qty: 90 RF: 4 Vyvanse 50 mg Capsule 50 mg PO DAILY RF: 0 Rexulti 1 mg Tablet 5 mg PO DAILY RF: 0 Discharge Instructions Instructions: Sinusitis (ED) Additional Instructions: Please take full course of antibiotic as prescribed. Please follow-up with chief engineer research. Call for an appointment. Please contact your primary care physician to arrange follow-up. Return to the ER for any worsening or new concerning symptoms. Referrals: Nika Michaud NP [Primary Care Provider] - Ronald Leal DO [OSTEOPATHIC DOCTOR] - Keshawn Carrington MD [ [facility] STAFF PHYSICIAN] - Medical Decision Making 18:30 --34-year-old female here with 3 to 4 days of bilateral ear pain, months of intermittent fullness in her ears despite multiple courses of antibiotics, tender over her mastoids. Consider mastoiditis. Plan to obtain CT of the sinuses. --CT of sinuses were interpreted by radiology: Mastoid air cells are well aerated. No note of mastoiditis. Maxillary sinus disease worse on left than right. Mild ethmoid sinus mucosal thickening. Plan to treat with Augmentin and have patient follow-up with ear nose and throat. Usual customary discharge instructions were provided. Patient verbalized understanding importance of timely follow-up and to return immediately should have any worsening or new concerning symptoms. HPI General Date/Time Provider Initiated Documentation: 02/23/19 18:09 . HPI Narrative: 34-year-old female with history of ADHD and anxiety presents with chief complaint of ear pain. Patient notes she has had pain in her ears bilaterally for the past 3 to 4 days. Right worse than left. She states she is been putting homeopathic drops in her ears to help with the pain. Patient states she has had intermittent sensation of fullness or fluid in her ears for the past 4 to 5 months. She also notes today that her equilibrium feels slightly off. P atient states that she had a significant dental/sinus infection about 2 years ago. No recent ear infections. Patient states she seen her primary care physician for the fullness over the past few months and has completed multiple courses of antibiotics. Plan from primary care was to obtain CT of the sinuses if symptoms persisted. Related Data Home Medications Medication Instructions Recorded Confirmed albuterol sulfate [Proventil HFA] 1 - 2 puff INHALATION Q6H PRN #1 07/25/17 02/23/19 inhaler norgestimate 0.25 mg-ethinyl 1 tab PO DAILY #84 tab 02/01/18 02/23/19 estradiol 35 mcg tablet cholecalciferol (vitamin D3) 2,000 2,000 unit PO DAILY #90 cap 02/25/18 02/23/19 unit capsule citalopram 40 mg tablet 40 mg PO DAILY #90 tab 07/04/18 02/23/19 propranolol 10 mg tablet 10 mg PO BID tab 11/27/18 02/23/19 buprenorphine 4 mg-naloxone 1 mg 1 film SL DAILY 12/13/18 02/23/19 sublingual film Rexulti 5 mg PO DAILY 02/23/19 02/23/19 Vyvanse 50 mg PO DAILY 02/23/19 02/23/19 amoxicillin-pot clavulanate 1 tab PO BID #19 tab 02/23/19 [Augmentin] Previous Rx's Medication Instructions Recorded albuterol sulfate [Proventil HFA] 1 - 2 puff INHALATION Q6H PRN #1 07/25/17 inhaler norgestimate 0.25 mg-ethinyl 1 tab PO DAILY #84 tab 02/01/18 estradiol 35 mcg tablet cholecalciferol (vitamin D3) 2,000 2,000 unit PO DAILY #90 cap 02/25/18 unit capsule citalopram 40 mg tablet 40 mg PO DAILY #90 tab 07/04/18 amoxicillin-pot clavulanate 1 tab PO BID #19 tab 02/23/19 [Augmentin] Allergies Allergy/AdvReac Type Severity Reaction Status Date / Time tetracycline [Tetracycline] Allergy Severe Skin Rash Unverified 02/23/19 18:06 codeine AdvReac Severe Nausea Unverified 02/23/19 18:06 Sulfa (Sulfonamide AdvReac Intermediate vomiting Unverified 02/23/19 18:06 Antibiotics) General Stated Complaint: Dizzy/Sync KORTNEY: 3 Review of Systems All systems reviewed & are unremarkable except as noted in HPI and below Constitutional Constitutional: Denies fever(s) and Denies headache(s) Eyes Eyes: Denies loss of vision ENT Ears, Nose, Mouth, and Throat: Reports as per HPI, Denies dental pain, Denies dysphagia, Denies ear discharge, Reports otalgia, Denies facial pain, Denies headache(s), Denies hearing loss, Denies nasal discharge, Denies neck mass, Reports disequilibrium, Denies tinnitus, Denies sinus pressure and Denies sore throat Cardiovascular Cardiovascular: Denies syncope Gastrointestinal Gastrointestinal: Denies dysphagia Musculoskeletal Musculoskeletal: Denies abnormal gait Neurologic Neurologic: Denies abnormal gait, Denies syncope, Denies headache(s), Denies focal weakness, Denies loss of vision, Denies sensory deficit, Denies paresthesias and Reports disequilibrium [facility] Medical History ADHD (attention deficit hyperactivity disorder) (Chronic) Generalized anxiety disorder (Chronic) History of heroin abuse (Chronic) Quit 2015. On Subuxone through [facility] Hyperlipidemia (Chronic) Oral contraceptive pill surveillance (Chronic) Vitamin D deficiency (Chronic) Surgical History S/P cystoscopy (Acute) Family History Mother Substance abuse Depression Father Essential hypertension Hyperlipidemia Depression Sister Alcohol abuse Sister Alcohol abuse Maternal Grandfather No problems noted. Maternal Grandmother No problems noted. Paternal Grandfather Alzheimer's dementia Paternal Grandmother , in her 70s Alzheimer's dementia Son No problems noted. Son No problems noted. Social History Smoking/Tobacco Use Status: Current every day Tobacco Type: e-cigarettes Quit status: quit date established Alcohol Intake: former Drug use: Current Sobriety Substance use type: former substance user Details: has been self medicating, Vyvanse and valium, since . Since stopping self medicating she is having difficulty dealing with the friend's Do you feel safe at home: Yes Do you feel safe in your relationship?: Yes Female Reproductive History Menstrual control method: pills History History 3 Para 2 Hx # Term Pregnancies Multiple births Hx # Pregnancies Ectopic pregnancies AB induced 1 Hx Number of Living Children 2 AB spontaneous Exam Const General: cooperative and no acute distress HENMT Ears: TM's normal bilaterally, EAC abnormal EAC tenderness; no erythema and no otic discharge and mastoid abnormal (ttp bilateral) General nose exam: external nose normal and nares normal Mouth: moist mucous membranes Throat: posterior oropharynx normal Eyes Conjunctivae: normal conjunctivae Sclera: normal sclerae Neck Neck: supple and no lymphadenopathy noted Resp Auscultation: clear to auscultation bilaterally, no rales, no rhonchi and no wheezes Cardio Jugular venous pressure: no JVD Rate: regular rate and not tachycardic Rhythm: regular rhythm Skin General skin exam: no rashes or lesions noted Neuro General: alert, awake and tone normal Extrem General: no edema Psych Appearance: grossly normal Course Vital Signs Vital signs: Vital Signs Temperature 36.7 C 02/23/19 18:03 Pulse 81 02/23/19 18:03 Respiratory Rate 18 02/23/19 18:03 Blood Pressure 132/54 L 02/23/19 18:03 Pulse Oximetry 98 02/23/19 18:03 Temperature 36.7 C 02/23/19 18:03 Temperature Source Skin 02/23/19 18:03 Pulse 81 02/23/19 18:03 Respiratory Rate 18 02/23/19 18:12 Respiratory Effort Non-Labored 02/23/19 18:12 Respiratory Depth Normal 02/23/19 18:12 Respiratory Pattern Normal 02/23/19 18:12 Blood Pressure 132/54 L 02/23/19 18:03 Pulse Oximetry 98 02/23/19 18:03 Pain Level 7 11/16/19 18:03
--- NOTE | 2019-02-23 18:34 | DI.CT_ITS ---
EXAM: CT SINUS WO CLINICAL HISTORY: mastoid pain and tenderness TECHNIQUE: Noncontrast COMPARISON: HEAD WITHOUT CONTRAST from 11/23/2016 FINDINGS: There is moderate mucosal thickening and mucous retention in the left maxillary sinus. There is min imal mucous retention in the right maxillary and right sinuses. The nasal cavity, frontal and spheno id sinuses appear clear. The orbits are unremarkable. The mastoid air cells appear clear. No skull abnormality is seen. The brain is grossly normal as visualized. IMPRESSION: Moderate left maxillary sinus disease. Minimal sinus disease is seen elsewhere. There is no bony de struction.
--- NOTE | 2019-02-23 19:24 | DI.VRAD_ITS ---
PROCEDURE INFORMATION: Exam: CT Maxillofacial Without Contrast Exam date and time: 02/23/2019 6:29 PM Clinical history: 34 years old, female; Other: Mastoid pain and tenderness TECHNIQUE: Imaging protocol: Computed tomography images of the face without contrast. Radiation optimization: All CT scans at this facility use at least one of these dose optimization techniques: automated exposure control; mA and/or kV adjustment per patient size (includes targeted exams where dose is matched to clinical indication); or iterative reconstruction. COMPARISON: No relevant prior studies available. FINDINGS: Orbits: Orbits are normal. Globes are unremarkable. Mastoid air cells: The mastoid air cells are well aerated. Sinuses: Left maxillary sinus disease with mucosal thickening and fluid. right maxillary sinus mucosal cyst or polyp medial inferior aspect. Mild ethmoid sinus mucosal thickening. Sphenoid sinus and frontal sinus are well aerated. Opacified left ostiomeatal unit. Bones/joints: No acute fracture. Soft tissues: Unremarkable. IMPRESSION: 1. Maxillary sinus disease worse on the left than right. 2. Mild ethmoid sinus mucosal thickening. Dictated and Authenticated by: Wendy Miguel MD. Ordering:ELOISA Smart MD
[2019-02-23 19:39] VITALS: BP 122/74; PULSE 94; RESP 16; TEMP 37; O2SAT 100
[2019-02-23] MEDS: Amoxicillin 875/Clav. 125 TAB PO (19:43)
== END 2019-02-23 19:45 | disposition home or self-care (01) ==
PROVIDERS: Emergency Provider Student in an Organized Health Care Education/Training Program; PCP Nurse Practitioner Family
DX: J01.00 Acute maxillary sinusitis, unspecified (principal)
CPT/HCPCS: 99284; 70486

== ENCOUNTER 2019-06-16 10:50 | Outpatient (CLI) | payer MEDICAID, SELFPAY ==
[2019-06-16 12:29] LABS: HCG Quant, Pregnancy 2984 mIU/mL (1-3)
== END 2019-06-16 11:10 ==
PROVIDERS: PCP Nurse Practitioner Family; Visit Provider Obstetrics & Gynecology
DX: Z34.91 Encounter for supervision of normal pregnancy, unspecified, first trimester (principal)
CPT/HCPCS: 36415; 84702

== ENCOUNTER 2019-06-17 12:36 | Outpatient (CLI) | payer MEDICAID, SELFPAY ==
[2019-06-17 15:08] LABS: HCG Quant, Pregnancy 4855 mIU/mL (1-3)
== END 2019-06-17 12:56 ==
PROVIDERS: PCP Nurse Practitioner Family; Visit Provider Obstetrics & Gynecology
DX: Z34.91 Encounter for supervision of normal pregnancy, unspecified, first trimester (principal)
CPT/HCPCS: 36415; 84702

== ENCOUNTER 2020-04-16 19:01 | Emergency (ER) | payer MEDICAID, SELFPAY ==
[2020-04-16 19:18] VITALS: BP 153/78; PULSE 95; RESP 18; TEMP 36.8; O2SAT 97
--- NOTE | 2020-04-16 19:30 | DI.RAD_ITS ---
EXAM: XR PORTABLE CHEST AP CLINICAL HISTORY: cough, + PUI TECHNIQUE: 2D digital imaging was performed. COMPARISON: No exams were available for comparison FINDINGS: MEDIASTINUM: Normal. HEART: Normal. PULMONARY VASCULATURE: Normal. LUNGS: Clear. PLEURAL SPACE: No pleural effusion or pneumothorax. BONE:Within normal limits for the patient's age. OTHER FINDINGS:Normal. IMPRESSION: No acute pulmonary findings. DATA REPOSITORY: RADIATION DOSE DELIVERED:
--- NOTE | 2020-04-16 19:34 | ED.GENADUL_ITS ---
Discharge Plan Disposition Patient Disposition: HOME Condition: Good Discharge Details Clinical Impression: Viral respiratory illness Primary Care Provider: Nika Michaud ED Provider: Jayden Ames Meds and New Rx's Prescriptions: Continued brexpiprazole 2 mg tablet 2 mg PO DAILY RF: 0 buprenorphine-naloxone 12-3 mg film 1 film SL DAILY RF: 0 propranolol 10 mg tablet 10 mg PO TID RF: 0 citalopram 40 mg tablet 40 mg PO DAILY RF: 0 Vyvanse 60 mg capsule 60 mg PO DAILY RF: 0 Discharge Instructions Instructions: Viral Syndrome (ED) Additional Instructions: Stay home in quarantine until Covid testing has returned, and you are feeling better. Reconnect with [facility]. Follow-up with primary care late next week if not better. Return to ED for mental status changes, chest pain, increas ing shortness of breath, persistent vomiting, other concerns. Stand Alone Forms: PENDING COVID-19 TESTING Referrals: Nika Michaud, [employer]ICAL INSTRUMENT [employer]SEMBLER [Primary Care Provider] - Medical Decision Making <Kee Kulkarni MD - Last Filed: 04/16/20 19:43> This is a 35-year-old female presents the ER with what she feels is 2 weeks of stuttering respiratory symptoms including cough, production of dark sputum, subjective fever and chills. Now with sore throat, itchy and injected eyes, nausea at home. She arrives to the ER afebrile, slightly elevated resting pulse of 95, blood pressure 153/78, oxygenating 97% on room air. She does have mild bilateral conjunctivitis. She has a cough noted without significant rhonchi or rales. Differential diagnosis includes viral syndrome, flulike illness, bronchitis, dehydration, gastritis. IV access established, screening laboratories obtained, influenza and COVID-19 test ordered. Patient referred for chest x-ray. She has a history of GERD. Given Protonix. Is also given Zofran and fluids. As it is a change of shift, the patient will be signed out to Dr. Ames. Please see his note regarding final impression and disposition. <Jayden Ames MD - Last Filed: 04/16/20 21:33> Patient chest x-ray is unremarkable. Rapid influenza negative. Laboratory studies unremarkable other than low potassium which is replaced orally. Patient reevaluated. Symptoms consistent with viral illness. Covid swab pending and sh e will need to quarantine until it returns. Patient has been involved with [facility] in the past. She is working on reconnecting with them now. She will be discharged home at this time in good condition. Return to ED for mental status changes, chest pain, increasing shortness of breath, persistent vomiting, other problems. Lab Data Lab results reviewed: Yes I reviewed the patient's lab results. HPI <Kee Kulkarni MD - Last Filed: 04/16/20 19:43> General Mode of arrival: ambulatory . Date/Time Provider Initiated Documentation: 04/16/20 19:02 . Limitations to Documentation: no limitations . Information obtained by: patient . History of Present Illness 35 year old F p resents to the emergency department with the chief complaint of Numerous complaints, upper respiratory illness, described as moderate, Quality is described as dull, and is localized to the chest. Patient reports no radiation. Patient started experiencing this day(s) and it has been intermittent. No relieving factors improve symptom(s), No exacerbating factors reported . Patient notes cough, fever/chills, loss of appetite, nausea/vomiting and other (Sore throat, injected conjunctiva). Patient did receive the following treatments prior to arrival, none Related Data Home Medications Medication Instructions Recorded Confirmed brexpiprazole 2 mg tablet 2 mg PO DAILY 06/27/19 04/16/20 buprenorphine 12 mg-naloxone 3 mg 1 film SL DAILY each 06/27/19 04/16/20 sublingual film citalopram 40 mg tablet 40 mg PO DAILY 12/23/19 04/16/20 lisdexamfetamine 60 mg capsule 60 mg PO DAILY 12/23/19 04/16/20 propranolol 10 mg tablet 10 mg PO TID 12/23/19 04/16/20 Allergies Allergy/AdvReac Type Severity Reaction Status Date / Time tetracycline [Tetracycline] Allergy Severe Skin Rash Unverified 04/16/20 19:37 codeine AdvReac Severe Nausea Unverified 04/16/20 19:37 Sulfa (Sulfonamide AdvReac Intermediate vomiting Unverified 04/16/20 19:37 Antibiotics) General Stated Complaint: EyeProblem KORTNEY: 3 Review of Systems <Kee Kulkarni MD - Last Filed: 04/16/20 19:43> Narrative: No known sick contacts. Lives with her parents and children. No travel. Positive production of sputum.. Increased rest at home. 6 systems reviewed and otherwise negative PFSH <Kee Kulkarni MD - Last Filed: 04/16/20 19:43> Medical History ADHD (attention deficit hyperactivity disorder) Chronic rhinosinusitis Cyclothymic disorder Followed by [facility] History of heroin abuse Quit 2016. On Subuxone through [facility] Hyperlipidemia Nicotine dependence Vitamin D deficiency Surgical History S/P cystoscopy Family History Mother Substance abuse Depression Father Essential hypertension Hyperlipidemia Depression Sister Alcohol abuse Sister Alcohol abuse Maternal Grandfather No problems noted. Maternal Grandmother No problems noted. Paternal Grandfather Alzheimer's dementia Paternal Grandmother , in her 70s Alzheimer's dementia Son No problems noted. Son No problems noted. Social History Smoking/Tobacco Use Status: Current every day Tobacco Type: cigarettes Tobacco: How many years used: 15 Quit status: considering quitting Smoking risk assessment performed?: Yes Alcohol Intake: former Drug use: Rarely Substance use type: former substance user and heroin Details: crack cocaine, heroin over last week Caregiver/Support person: No Household members: family and children Communication Needs: None Do you need help understanding health information?: Rarely Pets and animals: Yes Pets and animals: bird(s) and turtle(s) Sexually active: Yes Do you think of yourself as: straight/heterosexual Current gender identity: female What is your relationship status?: How often do you talk on the phone with friends or family?: twice per week How often do you get together with friends or relatives?: twice per week How often do you attend pentecostal or taoism services?: 4 or more times per year Do you belong to any clubs or organized social groups?: no Panel score (0-1 are the most socially isolated patients): 2 What type of physical activity do you participate in: walking Duration: 15-30 minutes/day Frequency: daily Erma/Jehovah'S Witness: Judaism Special erma needs: No Seatbelt use: always Drive intox or ride w/intox cart driver: No Do you feel safe at home: Yes Do you feel safe in your relationship?: Yes Female Reproductive History Menstrual control method: pills History History 4 Para 3 Hx # Term Pregnancies Multiple births Hx # Pregnancies Ectopic pregnancies AB induced 2 Hx Number of Living Children 2 AB spontaneous Past Pregnancies Del. Date GA/Weeks # Outcome Route Wgt Sex Labor Lgth Anesthes ia Location Prov Complic 06/28/19 6 Unsuccessful Delivery Date: 06/28/19 chemically induced AB, at approximate date of 06/28/19 @ [facility] Exam <Kee Kulkarni MD - Last Filed: 04/16/20 19:43> Narrative Exam Narrative: GEN: awake, alert, oriented 3. Pleasant, well groomed, interactive. HEAD: Normocephalic, atraumatic ENT: Mucous membranes moist, oropharynx unremarkable no exudate or swelling present, tympanic membranes visualized and clear bilaterally, External ear exam unremarkable EYES: PERRL, EOMI, conjunctival injection bilaterally NECK: Full ROM, no DONOVAN, no menigismus CHEST/RESP: Nontender, clear to auscultation bilateral, no wheeze/rhonchi/rales, cough noted CARDIOVASCULAR: RRR, no murmur, rub gaviota. 2+ Rad pulse bilateral ABDOMEN: Soft, nontender, no mass. +Bowel sounds EXT: Full ROM, no edema, no rash Neuro: Grossly normal neurologic exam, conversant, interactive. Psych: Speech fluent, thoughts congruent, affect anxious Course <Kee Kulkarni MD - Last Filed: 04/16/20 19:43> Vital Signs Vital signs: Vital Signs Temperature 36.8 C 04/16/20 19:18 Pulse 95 H 04/16/20 19:18 Respiratory Rate 18 04/16/20 19:18 Blood Pressure 153/78 H 04/16/20 19:18 Pulse Oximetry 97 04/16/20 19:18 Temperature 36.8 C 04/16/20 19:18 Temperature Source Temporal Artery Scan 04/16/20 19:18 Pulse 95 H 04/16/20 19:18 Respiratory Rate 18 04/16/20 19:18 Blood Pressure 153/78 H 04/16/20 19:18 Pulse Oximetry 97 04/16/20 19:18 Oxygen Delivery Method Room Air 04/16/20 19:18 Oxygen Flow Rate 0 04/16/20 19:18 Pain Level 7 04/16/20 19:13 Sign Out <Kee Kulkarni MD - Last Filed: 04/16/20 19:43> Sign Out Data: Sign Out Comment: Followup labs, xr, re-eval Last updated by Kee Kulkarni MD at 04/16/20 19:44
[2020-04-16] MEDS: Normal Saline 1,000 ML 1000 ML IV (19:54)
[2020-04-16] MEDS: Ondansetron 4 MG/2 ML VIAL IVP (19:55)
[2020-04-16] MEDS: Pantoprazole 40 MG VIAL IVP (19:55)
--- NOTE | 2020-04-16 20:06 | DI.VRAD_ITS ---
PROCEDURE INFORMATION: Exam: XR Chest, 1 View Exam date and time: 04/16/2020 7:34 PM Age: 35 years old Clinical indication: Cough TECHNIQUE: Imaging protocol: XR of the chest Views: 1 view. COMPARISON: CR CHEST 2 VIEWS PA,LAT 11/27/2013 8:19 PM FINDINGS: Lungs: Unremarkable. No consolidation. Pleural space: Unremarkable. No pleural effusion. No pneumothorax. Heart/Mediastinum: Unremarkable. No cardiomegaly. Bones/joints: Unremarkable. IMPRESSION: No acute abnormality. Dictated and Authenticated by: Solitario Wang MD. Ordering:OSCAR Sweet MD
[2020-04-16 20:12] LABS: Abs Immature Grans 0.01 10^3/uL (0.0-0.06); Absolute Basophil Count 0.02 10^3/uL (0.0-0.2); Absolute Eosinophil Count 0.18 10^3/uL (0.0-0.7); Absolute Lymphocyte Count 2.38 10^3/uL (1.2-3.4); Absolute Monocyte Count 0.39 10^3/uL (0.1-0.8); Absolute Neutrophil Count 3.45 10^3/uL (1.2-6.7); Basophils % 0.3; Eosinophils % 2.8; HGB 14.2 g/dL (11.2-15.7); Immature Grans % 0.2; MCH 30.8 pg (27.0-33.0); MCHC 33.8 % (32.0-36.0); MCV 91.1 fL (80-95); MPV 9.8 fL (8.0-11.0); Monocytes % 6.1; Neutrophils % 53.6; Nucleated RBC 0 %; Platelet Count 297 10^3/uL (130-400); RBC 4.61 10^6/uL (3.93-5.22); RDW-SD 40.2 fL; WBC 6.43 10^3/uL (4.4-10.8)
[2020-04-16 20:21] LABS: ALT 23 U/L (14-59); AST 18 U/L (15-37); Albumin 3.8 g/dL (3.4-5.0); Alkaline Phosphatase 77 U/L (46-116); Anion Gap 7.6 mmol/L (3-11); BUN 9 mg/dL (7-18); Bilirubin, Total 0.3 mg/dL (0.2-1.0); CO2 30.4 mmol/L (21.0-32.0); CREATININE 0.88 mg/dL (0.55-1.02); Calcium 9.3 mg/dL (8.5-10.1); Chloride 105 mmol/L (98-107); Glucose 136 mg/dL (74-106); Potassium 3.1 mmol/L (3.5-5.1); Sodium 143 mmol/L (136-145); Total Protein 6.9 g/dL (6.4-8.2)
[2020-04-16] MEDS: Potassium Chloride 20 MEQ TABCR 40 MEQ PO (21:06)
[2020-04-16 21:09] VITALS: BP 132/83; PULSE 93; RESP 16; O2SAT 97
[2020-04-16 21:10] VITALS: TEMP 37
[2020-04-18 15:29] LABS: COVID-19 RT-PCR UVMMC Result Negative (Negative)
--- NOTE | 2020-04-19 08:10 | NUR.NOTE ---
Nursing Note: 0804--message left to call er for a test result
--- NOTE | 2020-04-19 15:14 | NUR.NOTE ---
Nursing Note: Pt returned call--informed of Negative Covid test result. Verbalizes understanding.
== END 2020-04-16 21:46 | disposition home or self-care (01) ==
PROVIDERS: Emergency Medicine; Emergency Provider Emergency Medicine; PCP Nurse Practitioner Family
DX: R05 Cough (principal); B30.9 Viral conjunctivitis, unspecified; J02.8 Acute pharyngitis due to other specified organisms; E87.6 Hypokalemia; Z03.818 Encounter for observation for suspected exposure to other biological agents ruled out
CPT/HCPCS: 36415; 80053; 81025; 87449; 96361; 96374; 96375; 99284; U0003; 71045; 85025; J2405

== ENCOUNTER 2020-11-24 12:48 | Outpatient (REF) | payer MEDICAID, SELFPAY ==
--- NOTE | 2020-11-24 11:30 | PAPFT_PTH ---
PATIENT: Jackie Sexton LOC: [facility] U#:[id number] AGE/SX: 35/F ROOM: RE11/24/[address]: FLORENCE Villarreal : 1985 BED: DIS: 11/24/2020 SPEC #: [id number] RECD: 11/24/20 12:54 STATUS: JESSICA REQ #: [id number] ALBERTO: 11/24/20 11:[address]: Amber Resendiz DEPT: [facility] Cytology RECD BY: Mary Zelaya ENTERED: 11/24/20 12:55 SP TYPE: PAPFT OTHR DR: FLORENCE Barroso Tissues: 1 - CX/ENDOCX FOR PAP SMEARS Procedures: PAP THIN PREP/[facility] Screening HPV DNA PROBE Comments: [id number]
[2020-12-04 15:23] LABS: Chlamydia Result Negative (Negative); GC Result Negative (Negative)
== END 2020-11-24 12:49 | disposition home or self-care (01) ==
LOC: LBN 12:48
PROVIDERS: PCP Nurse Practitioner Family; Visit Provider Nurse Practitioner Family
DX: Z12.4 Encounter for screening for malignant neoplasm of cervix (principal); Z11.3 Encounter for screening for infections with a predominantly sexual mode of transmission; Z11.51 Encounter for screening for human papillomavirus (HPV)
CPT/HCPCS: 87491; 87591; 88142; 87624

== ENCOUNTER 2021-01-08 17:02 | Outpatient (REF) | payer MEDICAID, SELFPAY | END 2021-01-08 17:03 | disposition home or self-care (01) | LOC: LBN 17:02 | PROVIDERS: PCP Nurse Practitioner Family; Visit Provider Nurse Practitioner Family | DX: N64.52 Nipple discharge (principal) | CPT/HCPCS: 87070; 87205 ==

== ENCOUNTER 2023-01-28 13:35 | Emergency (ER) | payer MEDICAID, SELFPAY ==
[2023-01-28 13:51] VITALS: BP 104/68; PULSE 107; RESP 18; TEMP 37.2; O2SAT 96
--- NOTE | 2023-01-28 13:51 | ED.GENADUL_ITS ---
Discharge Plan Disposition Patient Disposition: Home Discharge Details Clinical Impression: History of thrush Primary Care Provider: Nika Michaud ED Provider: Ian Hernandez Home Meds and New Rx's Prescriptions: No Action Acidophilus Tablet,Chewable 1 tab PO DAILY methadone 10 mg/5 mL solution 110 mg PO DAILY Patient Comments: pt states she is taking 110 mg daily. dextroamphetamine-amphetamine [Adderall] 30 mg tablet 30 mg PO DAILY dextroamphetamine-amphetamine [Adderall XR] 30 mg capsule,extended release 24hr 30 mg PO DAILY PNV #[id number] acid-omega3 30 mg iron-10 mg iron-1 mg capsule 1 cap PO DAILY Qty: 90 3RF propranolol 10 mg tablet 10 mg PO TID Vyvanse 60 mg capsule 60 mg PO DAILY citalopram 40 mg tablet 20 mg PO DAILY Discharge Instructions Instructions: Oral Candidiasis (ED) Additional Instructions: Continue to use your nystatin as prescribed. Also continue to perform appropriate dental hygiene. You may mix 50% Maalox and 50% Benadryl [id number] liquid and swish in your mouth to see if this also helps with your symptoms. Please follow-up with your primary care provider as needed for reassessment Referrals: Nika Michaud, OCCUPATIONAL MEDICINE PHYSICIAN [Primary Care Provider] - Medical Decision Making Patient presenting the emergency department for chief complaint of mouth pain and sore throat. Patient states that she was recently diagnosed with thrush and put on nystatin swish which is significantly helped with the coating that she previously had but wanted a recheck because she is still having some discomfort. She states that she has used this for the last couple days as prescribed. Patient denies any other symptoms. Physical exam is unremarkable. no signs of deep neck space infection ( Retropharyngeal abscess, Yoseph's angina, Parapharyngeal space infection, Peritonsillar Abscess (AUTOMATED MANUFACTURING INSTRUCTOR)) or Epiglottitis. Pt non toxic and stable. We will plan on patient continuing to use nystatin swish and spit's. I believe that she probably still has just some irritation due to thrush but I do not feel that we need to change treatment given that she was having improvement of symptoms. After discussion of diagnosis and plan of care patient has no further needs, questions, or concerns and states clear understanding to return to the emergency department for any worsening symptoms. This documentation was generated using TrashOut dictation system, please disregard any oddities of phrase or misspellings. HPI General Mode of arrival: ambulatory . Date/Time Provider Initiated Documentation: 01/28/23 13:51 . Limitations to Documentation: no limitations . Information obtained by: patient, family and RN notes reviewed . History of Present Illness 38 year old F presents to the emergency department with the chief complaint of Mouth pain/sore throat, described as moderate and similar to prior episodes, Patient started experiencing this day(s) (5) and it has been intermittent. Medication improves symptom(s), No exacerbating factors reported . Patient notes no other symptoms.. Patient did receive the following treatments prior to arrival, other (Nystatin swish) Related Data Home Medications Medication Instructions Recorded Confirmed lisdexamfetamine 60 mg capsule 60 mg PO DAILY 12/23/19 03/09/21 (Vyvanse) propranolol 10 mg tablet 10 mg PO TID 12/23/19 03/09/21 citalopram 40 mg tablet 20 mg PO DAILY 11/24/20 03/09/21 Lactobacillus acidophilus 1 tab PO DAILY 01/08/21 03/09/21 (Acidophilus chewable tablet) methadone 10 mg/5 mL oral solution 110 mg PO DAILY 01/08/21 03/09/21 dextroamphetamine-amphetamine 30 30 mg PO DAILY 03/09/21 03/09/21 mg tablet (Adderall) dextroamphetamine-amphetamine ER 30 mg PO DAILY 03/09/21 03/09/21 30 mg 24hr capsule,extend release (Adderall XR) vitamin#30 30 mg iron-10 1 cap PO DAILY #90 caps 03/09/21 03/09/21 mg iron-folic acid 1 mg-omg3 capsule Previous Rx's Medication Instructions Recorded vitamin#30 30 mg iron-10 1 cap PO DAILY #90 caps 03/09/21 mg iron-folic acid 1 mg-omg3 capsule Allergies Allergy/AdvReac Type Severity Reaction Status Date / Time tetracycline [Tetracycline] Allergy Severe Skin Rash Verified 01/08/21 12:56 codeine AdvReac Severe Nausea Verified 01/08/21 12:56 Sulfa (Sulfonamide AdvReac Intermediate vomiting Verified 01/08/21 12:56 Antibiotics) General Stated Complaint: Sorethroat KORTNEY: 3 Review of Systems Constitutional Constitutional: Denies chills and Denies fever(s) ENT Ears, Nose, Mouth, and Throat: Reports system reviewed and no additional complaints, except as documented, Reports as per HPI, Denies dental pain, Reports mouth pain and Reports sore throat Cardiovascular Cardiovascular: Denies chest pain and Denies dyspnea Respiratory Respiratory: Denies cough and Denies dyspnea Gastrointestinal Gastrointestinal: Denies nausea and Denies vomiting Integumentary/Breasts Skin/Breast: Denies rash PFSH All Active Problems (Updated 01/28/23 @ 13:57 by Ian Hernandez NP) History of thrush (Acute) AMA (advanced maternal age) multigravida 35+ (Acute) HRP (high risk ) (Acute) Nipple discharge (Acute) Menopausal and perimenopausal disorder (Acute) Substance use disorder (Acute) Nicotine dependence (Chronic) Chronic rhinosinusitis (Acute) Cyclothymic disorder (Chronic) Followed by [facility] ADHD (attention deficit hyperactivity disorder) (Chronic) Hyperlipidemia (Chronic) History of heroin abuse (Chronic) Quit 2016. On Subuxone through [facility] Medical History Vitamin D deficiency Surgical History S/P cystoscopy Family History Mother Substance abuse Depression Father Essential hypertension Hyperlipidemia Depression Sister Alcohol abuse Sister Alcohol abuse Maternal Grandfather No problems noted. Maternal Grandmother No problems noted. Paternal Grandfather Alzheimer's dementia Paternal Grandmother , in her 70s Alzheimer's dementia Son No problems noted. Son No problems noted. Social History Smoking/Tobacco Use Status: Current every day Tobacco Type: cigarettes and e- cigarettes Tobacco: How many years used: 15 Quit status: considering quitting Second Hand Exposure: Yes Smoking risk assessment performed?: Yes Alcohol Intake: former Drug use: Rarely Substance use type: crack/cocaine and heroin Details: crack cocaine, heroin over last week Caregiver/Support person: No Household members: family Communication Needs: None Do you need help understanding health information?: Never Pets and animals: Yes Pets and animals: bird(s) and turtle(s) Sexually active: Yes Do you think of yourself as: straight/heterosexual Current gender identity: female What is your relationship status?: How often do you talk on the phone with friends or family?: three or more times per week How often do you get together with friends or relatives?: once per week How often do you attend adventist or sabianist services?: 4 or more times per year Do you belong to any clubs or organized social groups?: no Panel score (0-1 are the most socially isolated patients): 2 What type of physical activity do you participate in: walking Duration: 45-60 minutes/day Frequency: daily Erma/Mandaen: Restorationist Special erma needs: No Seatbelt use: sometimes Helmet use: Yes Helmet use: always Drive intox or ride w/intox driver merchandiser: No Do you feel safe at home: Yes Do you feel safe in your relationship?: Yes Female Reproductive History Menstrual control method: pills History History 4 Para 3 Hx # Term Pregnancies Multiple births Hx # Pregnancies Ectopic pregnancies AB induced 2 Hx Number of Living Children 2 AB spontaneous Past Pregnancies Del. Date GA/Weeks # Preg Succ Route Wgt Sex Labor Lgth Anesth esia Location Prov Complic 06/28/19 6 Delivery Date: 06/28/19 Last Updated by: Afua Grover LPN chemically induced AB, at approximate date of 06/28/19 @ [facility] Exam Const General: cooperative, healthy appearing, comfortable, no acute distress and not ill appearing Orientation: alert, awake and oriented x3 HENMT Head: normal to inspection and normocephalic Ears: hearing grossly normal bilaterally, external ears normal, TM's normal bilaterally and mastoids normal General nose exam: external nose normal and nares normal Face and sinus: normal facial exam and sinuses nontender Mouth: oral mucosae normal, lip normal, tongue normal, no audible dysphonia, no drooling and no trismus Throat: uvula midline and no peritonsillar masses Neck Neck: normal visual inspection, full ROM, no lymphadenopathy and no meningeal signs Resp Effort & Inspection: normal respiratory effort, able to speak in complete sentences and no stridor Auscultation: clear to auscultation bilaterally Cardio Rate: regular rate Rhythm: regular rhythm Heart Sounds: S1 normal and S2 normal Skin General skin exam: no rashes or lesions noted
== END 2023-01-28 14:11 | disposition home or self-care (01) ==
LOC: ER 14:03
PROVIDERS: Emergency Provider Nurse Practitioner Family; PCP Nurse Practitioner Family
DX: R07.0 Pain in throat (principal); Z86.19 Personal history of other infectious and parasitic diseases
CPT/HCPCS: 99282; 99283

== ENCOUNTER 2023-02-15 16:41 | Outpatient (CLI) | payer MEDICAID, SELFPAY ==
[2023-02-15 17:21] LABS: Abs Immature Grans 0.01 10^3/uL (0.0-0.06); Absolute Basophil Count 0.04 10^3/uL (0.0-0.2); Absolute Eosinophil Count 0.13 10^3/uL (0.0-0.7); Absolute Lymphocyte Count 3.26 10^3/uL (1.2-3.4); Absolute Monocyte Count 0.33 10^3/uL (0.1-0.8); Absolute Neutrophil Count 1.99 10^3/uL (1.2-6.7); Basophils % 0.7; Eosinophils % 2.3; HCT 40.3 % (36.0-46.0); HGB 13.7 g/dL (11.2-15.7); Immature Grans % 0.2; Lymphocytes % 56.6; MCH 29.3 pg (27.0-33.0); MCV 86 fL (80-95); MPV 8.5 fL (8.0-11.0); Monocytes % 5.7; Neutrophils % 34.5; Platelet Count 427 10^3/uL (130-400); RBC 4.68 10^6/uL (3.93-5.22); RDW 12.6 % (11.7-14.6); RDW-SD 39.6 fL; WBC 5.76 10^3/uL (4.4-10.8)
[2023-02-15 17:52] LABS: *AMPHETAMINES SCREEN URINE Positive (Negative); *BARBITURATES SCREEN URINE Negative (Negative); *BENZODIAZEPINES SCREEN URINE Negative (Negative); Cannabinoids THC Negative (Negative); Cocaine Screen,Urine Negative (Negative); METHADONE URINE SCREEN Negative (Negative); OPIATES URINE SCREEN Negative (Negative)
[2023-02-15 17:54] LABS: Tricyclic Antidepressants Positive (Negative)
[2023-02-15 17:59] LABS: Bilirubin Negative (Negative); Blood Negative (Negative); Clarity Clear (Clear); Glucose Negative (Negative); Hemoglobin A1C 5.1 % (<5.7); Ketones Negative (Negative); Leukocyte Esterase Small (Negative); Nitrite Negative (Negative); Urobilinogen 0.2 mg/dL (Up to 0.2); pH 5.5 (5-8)
[2023-02-15 18:05] LABS: Bacteria Few HPF (Negative); C & S Indicated? No/Sq. Contamination; Casts Negative LPF (Negative); Crystals Negative HPF (Negative); Epithelial Cells Many HPF (Negative); Mucus Negative (Negative); RBC 0-2 HPF (0-2)
[2023-02-15 18:13] LABS: Vitamin D 25 Total 39.5 ng/mL (30-100)
[2023-02-15 18:17] LABS: ALT 20 U/L (14-59); AST 18 U/L (15-37); Albumin 4.3 g/dL (3.4-5.0); Alkaline Phosphatase 119 U/L (46-116); BUN 15 mg/dL (7-18); Bilirubin, Total 0.3 mg/dL (0.2-1.0); CREATININE 0.8 mg/dL (0.55-1.02); Calcium 10.1 mg/dL (8.5-10.1); Calculated LDL 120 mg/dL (<100); Chloride 101 mmol/L (98-107); Cholesterol 199 mg/dL (<200); Estimated GFR 96.06 (mL/min/1.73m2); Glucose 89 mg/dL (74-106); HDL Cholesterol 67 mg/dL (40-60); Potassium 3.7 mmol/L (3.5-5.1); Sodium 139 mmol/L (136-145); TSH (W/Ref FT4) 1.01 uIU/mL (0.36-3.74); Total Protein 7.6 g/dL (6.4-8.2); Triglyceride 62 mg/dL (<150); Vitamin B12 472 pg/mL (193-986)
[2023-02-20 07:55] LABS: Xylazine, Confirmation Urine Negative ng/mL (<50)
[2023-02-20 18:25] LABS: Fentanyl Interpretation Negative.; Fentanyl by LC-MS/MS Not Detected; Norfentanyl by LC-MS/MS Not Detected
== END 2023-02-15 16:42 | disposition home or self-care (01) ==
LOC: LBO 16:43
PROVIDERS: PCP Nurse Practitioner Family; Visit Provider Nurse Practitioner Family
DX: I10 Essential (primary) hypertension (principal); E78.5 Hyperlipidemia, unspecified; F11.10 Opioid abuse, uncomplicated
CPT/HCPCS: 36415; 80053; 80061; 80307; 80375; 82306; 80354; 81003; 81015; 82607; 83036; 84443; 85025

== ENCOUNTER 2023-03-31 08:32 | Emergency (ER) | payer MEDICAID, SELFPAY ==
[2023-03-31 08:36] VITALS: BP 119/77; PULSE 95; RESP 15; TEMP 36.8; O2SAT 99
--- NOTE | 2023-03-31 09:22 | ED.GENADUL_ITS ---
Discharge Plan Disposition Patient Disposition: Home Discharge Details Clinical Impression: Acute upper respiratory infection Primary Care Provider: Nika Michaud ED Provider: Ian Hernandez Home Meds and New Rx's Prescriptions: Continued propranolol 10 mg tablet 10 mg PO TID lisdexamfetamine [Vyvanse] 60 mg capsule 20 mg PO DAILY citalopram 40 mg tablet 20 mg PO DAILY buprenorphine-naloxone [Suboxone] 8-2 mg film 2 film sublingual DAILY Rx Instructions: place 1 strip/tab under (each) side of tongue Discharge Instructions Instructions: Upper Respiratory Infection (ED) Additional Instructions: At this time I feel that you have an upper respiratory viral infection. Please stay well-hydrated and get plenty of rest. You may use [id number] medications that match your symptoms and at this time I recommend [id number] Mucinex normal strength as directed on packaging. With this medication again stay well-hydrated. Return to the emergency department for any new or significant worsening of sy mptoms otherwise follow-up with primary care provider if not improving in the next week Referrals: Nika Michaud, SURGICAL RN [Primary Care Provider] - 1 week (If not improving) Discharge Data Discharge Date/Time-TO BE ENTERED AT DEPARTURE: 03/31/23 09:43 Medical Decision Making Patient presenting to the clinic for chief complaint of cold symptoms. Patient reports symptoms have been going on for the past 4 days. reports headache, sinus pressure, nasal congestion, and sore throat. Physical exam shows mild posterior pharynx and tonsillar erythema, no lymphadenopathy, otherwise clear lung sounds and otherwise unremarkable exam. Patient has no signs of meningitis, peritonsillar abscess, retropharyngeal abscess, Yoseph's angina, or life- threatening Airway infection. Patient did show me object that she coughed up more looks like mucus with slight blood tinge. I feel this is more secondary to her viral infection and not actual tissue that she coughed up.. Suspect viral illness COVID flu RSV testing performed otherwise conservative management discussed along with follow-up and return precautions. Patient discharged pending results due to volume in the emergency department and no emergent findings or interventions needed at this time. After discussion of diagnosis and plan of care patient has no further needs, questions, or concerns and states clear understanding to return to the emergency department for any worsening symptoms. This documentation was generated using Dragon dictation system, please disregard any oddities of phrase or misspellings. Lab Data Lab results reviewed: Yes I reviewed the patient's lab results. Lab results narrative: Negative COVID flu RSV HPI General Mode of arrival: ambulatory . Date/Time Provider Initiated Documentation: 03/31/23 08:45 . Limitations to Documentation: no limitations . Information obtained by: patient and RN notes reviewed . History of Present Illness 38 year old F presents to the emergency department with the chief complaint of Nasal congestion sore throat mucus production, described as moderate, Patient started experiencing this day(s) (4) No relieving factors improve symptom(s), No exacerbating factors reported . Patient did receive the following treatments prior to arrival, none Related Data Home Medications Medication Instructions Recorded Confirmed lisdexamfetamine 60 mg capsule 20 mg PO DAILY 12/23/19 03/31/23 (Vyvanse) propranolol 10 mg tablet 10 mg PO TID 12/23/19 03/31/23 citalopram 40 mg tablet 20 mg PO DAILY 11/24/20 03/31/23 buprenorphine 8 mg-naloxone 2 mg 2 film sublingual DAILY 03/31/23 03/31/23 sublingual film (Suboxone) Allergies Allergy/AdvReac Type Severity Reaction Status Date / Time tetracycline [Tetracycline] Allergy Severe Skin Rash Verified 03/31/23 08:41 codeine AdvReac Severe Nausea Verified 03/31/23 08:41 Sulfa (Sulfonamide AdvReac Intermediate vomiting Verified 03/31/23 08:41 Antibiotics) General Stated Complaint: RespSymp KORTNEY: 4 Review of Systems Constitutional Constitutional: Reports body ache(s), Reports chills, Reports lethargy, Reports malaise and Reports poor appetite Eyes Eyes: Denies eye discharge ENT Ears, Nose, Mouth, and Throat: Reports as per HPI, Denies ear discharge, Reports otalgia, Reports nasal congestion, Reports nasal discharge, Denies neck pain, Reports sinus pressure, Reports sore throat and Denies throat swelling Cardiovascular Cardiovascular: Denies chest pain and Denies dyspnea Respiratory Respiratory: Denies cough and Denies dyspnea Musculoskeletal Musculoskeletal: Denies joint swelling and Denies neck pain Integumentary/Breasts Skin/Breast: Denies rash Allergic/Immunologic Allergic/Immunologic: Denies throat swelling PFSH All Active Problems Acute upper respiratory infection (Acute) AMA (advanced maternal age) multigravida 35+ (Acute) HRP (high risk ) (Acute) Nipple discharge (Acute) Menopausal and perimenopausal disorder (Acute) Substance use disorder (Acute) Nicotine dependence (Chronic) Chronic rhinosinusitis (Acute) Cyclothymic disorder (Chronic) Followed by [facility] ADHD (attention deficit hyperactivity disorder) (Chronic) Hyperlipidemia (Chronic) History of heroin abuse (Chronic) Quit 2016. On Subuxone through [facility] Medical History Vitamin D deficiency Surgical History S/P cystoscopy Family History Mother Substance abuse Depression Father Essential hypertension Hyperlipidemia Depression Sister Alcohol abuse Sister Alcohol abuse Maternal Grandfather No problems noted. Maternal Grandmother No problems noted. Paternal Grandfather Alzheimer's dementia Paternal Grandmother , in her 70s Alzheimer's dementia Son No problems noted. Son No problems noted. Social History Smoking/Tobacco Use Status: Current every day Tobacco Type: cigarettes and e- cigarettes Tobacco: How many years used: 15 Quit status: considering quitting Second Hand Exposure: Yes Smoking risk assessment performed?: Yes Alcohol Intake: former Drug use: Rarely Substance use type: crack/cocaine and heroin Details: crack cocaine, heroin over last week Caregiver/Support person: No Household members: family Housing: apartment Communication Needs: None Do you need help understanding health information?: Never Pets and animals: Yes Pets and animals: bird(s) and turtle(s) Sexually active: Yes Do you think of yourself as: straight/heterosexual Current gender identity: female What is your relationship status?: How often do you talk on the phone with friends or family?: three or more times per week How often do you get together with friends or relatives?: once per week How often do you attend sabianist or episcopalian services?: 4 or more times per year Do you belong to any clubs or organized social groups?: no Panel score (0-1 are the most socially isolated patients): 2 What type of physical activity do you participate in: walking Duration: 45-60 minutes/day Frequency: daily Erma/Taoist: Anabaptist Special erma needs: No Seatbelt use: sometimes Helmet use: Yes Helmet use: always Drive intox or ride w/intox public transit bus driver: No Do you feel safe at home: Yes Do you feel safe in your relationship?: Yes Female Reproductive History Menstrual control method: pills History History 4 Para 3 Hx # Term Pregnancies Multiple births Hx # Pregnancies Ectopic pregnancies AB induced 2 Hx Number of Living Children 2 AB spontaneous Past Pregnancies Del. Date GA/Weeks # Preg Succ Route Wgt Sex Labor Lgth Anesth esia Location Prov Complic 06/28/19 6 Delivery Date: 06/28/19 Last Updated by: Afua Grover LPN chemically induced AB, at approximate date of 06/28/19 @ [facility] Exam Const General: cooperative, comfortable and no acute distress Orientation: alert and awake [facility] Head: normal to inspection, normocephalic and atraumatic Ears: hearing grossly normal bilaterally and TM's normal bilaterally General nose exam: external nose normal Face and sinus: no erythema Mouth: oral mucosae normal, no drooling, no muffled voice and no trismus Throat: posterior oropharynx normal Neck Neck: normal visual inspection, full ROM, no lymphadenopathy, no meningeal signs, trachea midline and supple Resp Effort & Inspection: normal respiratory effort and able to speak in complete sentences Auscultation: clear to auscultation bilaterally Cardio Rate: regular rate Rhythm: regular rhythm Heart Sounds: S1 normal, S2 normal, normal S1 and S2, no click, no gallops, no murmurs and no rubs Skin General skin exam: no rashes or lesions noted and dry skin (warm) Neuro General: patient alert, patient awake, patient oriented x3, gait normal and moves all extremities Cognition: normal cognition Speech: speech normal Course Vital Signs Vital signs: Vital Signs Temperature 36.8 C 03/31/23 08:36 Pulse 95 H 03/31/23 08:36 Respiratory Rate 15 03/31/23 08:36 Blood Pressure 119/77 03/31/23 08:36 Pulse Oximetry 99 03/31/23 08:36 Temperature 36.8 C 03/31/23 08:36 Temperature Source Temporal Artery Scan 03/31/23 08:36 Pulse 95 H 03/31/23 08:36 Respiratory Rate 15 03/31/23 08:36 Respiratory Effort Normal 03/31/23 08:39 Respiratory Depth Normal 03/31/23 08:39 Blood Pressure 119/77 03/31/23 08:36 Blood Pressure Position Sitting 03/31/23 08:36 Pulse Oximetry 99 03/31/23 08:36 Oxygen Delivery Method Room Air 03/31/23 08:36 Oxygen Flow Rate 0 03/31/23 08:36 Pain Level 0 03/31/23 08:36
[2023-03-31 09:42] VITALS: BP 119/77; PULSE 95; RESP 15; TEMP 36.8; O2SAT 99
[2023-03-31 10:02] LABS: COVID-19 PCR Negative (Negative); Influenza A PCR Negative (Negative); Influenza B PCR Negative (Negative); RSV PCR Negative (Negative)
[2023-03-31 10:13] LABS: Source Nasopharynx
== END 2023-03-31 09:43 | disposition home or self-care (01) ==
PROVIDERS: Emergency Provider Nurse Practitioner Family; PCP Nurse Practitioner Family
DX: J06.9 Acute upper respiratory infection, unspecified (principal)
CPT/HCPCS: 87637; 99282; 99283

== ENCOUNTER 2023-04-20 11:52 | Outpatient (CLI) | payer MEDICAID, SELFPAY ==
[2023-04-20 12:39] LABS: Absolute Basophil Count 0.02 10^3/uL (0.0-0.2); Absolute Lymphocyte Count 2.64 10^3/uL (1.2-3.4); Absolute Neutrophil Count 0.64 10^3/uL (1.2-6.7); Basophils % 0.6; Eosinophils % 2.8; HCT 37.6 % (36.0-46.0); HGB 12.8 g/dL (11.2-15.7); Lymphocytes % 73.3; MCH 29.4 pg (27.0-33.0); MCV 86 fL (80-95); MPV 9.1 fL (8.0-11.0); Monocytes % 5.6; Neutrophils % 17.7; Platelet Count 275 10^3/uL (130-400); RBC 4.36 10^6/uL (3.93-5.22); RDW 12.4 % (11.7-14.6); RDW-SD 39.7 fL
[2023-04-20 13:03] LABS: ALT 21 U/L (14-59); AST 19 U/L (15-37); Albumin 3.4 g/dL (3.4-5.0); Alkaline Phosphatase 97 U/L (46-116); Anion Gap 4.5 mmol/L (3-11); BUN 12 mg/dL (7-18); Bilirubin, Total 0.2 mg/dL (0.2-1.0); CO2 31.5 mmol/L (21.0-32.0); CREATININE 0.9 mg/dL (0.55-1.02); Calcium 9.6 mg/dL (8.5-10.1); Chloride 107 mmol/L (98-107); Glucose 129 mg/dL (74-106); Potassium 3.6 mmol/L (3.5-5.1); Sodium 143 mmol/L (136-145); TSH (W/Ref FT4) 0.93 uIU/mL (0.36-3.74); Total Protein 6.6 g/dL (6.4-8.2)
[2023-04-20 13:04] LABS: Diff Comment Agrees w/ Instrument; RBC Morphology Normal
[2023-04-20 13:17] LABS: Hemoglobin A1C 5.4 % (<5.7)
[2023-04-20 13:25] LABS: *AMPHETAMINES SCREEN URINE Negative (Negative); *BARBITURATES SCREEN URINE Negative (Negative); *BENZODIAZEPINES SCREEN URINE Negative (Negative); Cannabinoids THC Negative (Negative); Cocaine Screen,Urine Negative (Negative); METHADONE URINE SCREEN Negative (Negative); OPIATES URINE SCREEN Negative (Negative)
[2023-04-20 13:26] LABS: Tricyclic Antidepressants Negative (Negative)
[2023-04-20 13:40] LABS: Calculated LDL 91 mg/dL (<100); Cholesterol 168 mg/dL (<200); HDL Cholesterol 53 mg/dL (40-60); Triglyceride 120 mg/dL (<150); Vitamin B12 304 pg/mL (193-986)
[2023-04-20 13:47] LABS: Vitamin D 25 Total 31.7 ng/mL (30-100)
[2023-04-21 19:51] LABS: HIV-1/2 Ag & Ab Screen Negative (Negative)
[2023-04-21 22:12] LABS: Hepatitis A Antibody IgM Negative (Negative); Hepatitis B Core Antibody Negative (Negative); Hepatitis B surface Ag Negative (Negative); Hepatitis C Ab w Rflx HCV PCR Reactive (Negative)
[2023-04-22 12:44] LABS: Chlamydia Result Negative (Negative); GC Result Negative (Negative)
[2023-04-24 10:56] LABS: HCV RNA Qualitative Undetected (Undetected)
[2023-04-24 11:43] LABS: Syphilis Serology (RPR) Negative (Negative)
[2023-04-24 15:27] LABS: Xylazine, Confirmation Urine Negative ng/mL (<50)
[2023-04-25 13:10] LABS: Fentanyl Interpretation Negative.; Fentanyl by LC-MS/MS Not Detected; Norfentanyl by LC-MS/MS Not Detected
== END 2023-04-20 11:53 | disposition home or self-care (01) ==
LOC: LBO 11:52
PROVIDERS: PCP Nurse Practitioner Family; Visit Provider Nurse Practitioner Family
DX: E78.5 Hyperlipidemia, unspecified (principal); I10 Essential (primary) hypertension; Z11.3 Encounter for screening for infections with a predominantly sexual mode of transmission; F19.10 Other psychoactive substance abuse, uncomplicated; E55.9 Vitamin D deficiency, unspecified
CPT/HCPCS: 36415; 80053; 80061; 80307; 80375; 82306; 86704; 86709; 86803; 87340; 87389; 87491; 87522; 87591; 80354; 82607; 83036; 84443; 85025; 86592

== ENCOUNTER 2023-08-08 03:11 | Emergency (ER) | payer MEDICAID, SELFPAY ==
[2023-08-08 03:16] VITALS: BP 125/80; PULSE 102; RESP 16; TEMP 36.6; O2SAT 96
--- NOTE | 2023-08-08 04:37 | ED.GENADUL_ITS ---
Discharge Plan Disposition Patient Disposition: Home Condition: Good Discharge Details Clinical Impression: Rash Primary Care Provider: Lorenza Escobedo ED Provider: Becki Hutton Home Meds and New Rx's Prescriptions: Continued polyethylene glycol 3350 17 gram/dose powder 238 g PO ONCE Qty: 238 0RF Rx Instructions: take per colonoscopy instructions bisacodyl [Dulcolax (bisacodyl)] 5 mg tablet,delayed release (DR/EC) 5 mg PO ONCE Qty: 4 0RF Rx Instructions: take per colonoscopy instructions propranolol 10 mg tablet 10 mg PO TID citalopram 30 mg capsule 30 mg PO DAILY aripiprazole [Abilify] 10 mg tablet 10 mg PO DAILY lamotrigine [Lamictal] 150 mg tablet 150 mg PO DAILY norethindrone (contraceptive) [Deblitane] 0.35 mg tablet 0.35 mg PO DAILY olanzapine 5 mg tablet 5 mg PO TID PRN buprenorphine-naloxone [Suboxone] 8-2 mg film 2 film sublingual DAILY Rx Instructions: place 1 strip/tab under (each) side of tongue gabapentin 300 mg capsule 300 mg PO BID PRN Patient Comments: TAKE ONE CAPSULE BY MOUTH TWICE A DAY NEEDED FOR PAIN dextroamphetamine-amphetamine 20 mg tablet 20 mg PO DAILY Patient Comments: TAKE ONE TABLET BY MOUTH EVERY DAY Discharge Instructions Instructions: Acute Rash (ED) Additional Instructions: Do not pick at your rash. You can try moisturizing creams. Keep your appointment with [facility] today. Keep your appointment with dermatology in September. Call your primary care doctor today to schedule an appointment before the end of the week to followup on your visit here. Return to the emergency department for new or worsening symptoms including fever, or if you have any other concerns. Referrals: Lorenza Escobedo [Primary Care Provider] - Discharge Data Discharge Date/Time-TO BE ENTERED AT DEPARTURE: 08/08/23 04:54 HPI General Mode of arrival: ambulatory . Date/Time Provider Initiated Documentation: 08/08/23 03:13 . Limitations to Documentation: no limitations . Information obtained by: patient . HPI Narrative: 38yo F presenting with chronic rash for 6 months. First noted in January of last year, has been fairly persistently present since then but waxing and waning in severity. Not acutely worse today. It is not pruritic or painful. It starts as a 'bump' under the skin, she tends to pick at this and then has excoriated lesions and pock-acosta. At one point was worried this may be parasites as she felt like something was 'coming out of my skin'. Has the sensation that it may be inside her vagina as well. No improvement with OTC moisturizing creams. Was briefly on a course of metronidyzal which seemed to help somewhat. Has a dermatology appointment scheduled in September. Visit with [facility] for pelvic exam scheduled for this afternoon. She is systemic ally well with no fevers, chills, nausea, vomiting, chest pain, shortness of breath, abdominal pain, dysuria, hematuria, or other concerns. Related Data Home Medications Medication Instructions Recorded Confirmed propranolol 10 mg tablet 10 mg PO TID 12/23/19 08/08/23 buprenorphine 8 mg-naloxone 2 mg 2 film sublingual DAILY 03/31/23 08/08/23 sublingual film (Suboxone) aripiprazole 10 mg tablet (Abilify) 10 mg PO DAILY 06/13/23 08/08/23 citalopram 30 mg capsule 30 mg PO DAILY 06/13/23 08/08/23 lamotrigine 150 mg tablet 150 mg PO DAILY 06/13/23 08/08/23 (Lamictal) norethindrone (contraceptive) 0.35 0.35 mg PO DAILY 06/13/23 08/08/23 mg tablet (Deblitane) olanzapine 5 mg tablet 5 mg PO TID PRN 06/13/23 08/08/23 bisacodyl 5 mg tablet,delayed 5 mg PO ONCE colonscopy bowel prep 06/15/23 08/08/23 release (Dulcolax (bisacodyl)) #4 tabs polyethylene glycol 3350 17 238 g PO ONCE colonoscopy prep 06/15/23 08/08/23 gram/dose oral powder #238 grams dextroamphetamine-amphetamine 20 20 mg PO DAILY 06/23/23 08/08/23 mg tablet gabapentin 300 mg capsule 300 mg PO BID PRN 08/08/23 08/08/23 Previous Rx's Medication Instructions Recorded bisacodyl 5 mg tablet,delayed 5 mg PO ONCE colonscopy bowel prep 06/15/23 release (Dulcolax (bisacodyl)) #4 tabs polyethylene glycol 3350 17 238 g PO ONCE colonoscopy prep 06/15/23 gram/dose oral powder #238 grams Allergies Allergy/AdvReac Type Severity Reaction Status Date / Time tetracycline [Tetracycline] Allergy Severe Skin Rash Verified 08/08/23 03:21 codeine AdvReac Severe Nausea Verified 08/08/23 03:21 Sulfa (Sulfonamide AdvReac Intermediate vomiting Verified 08/08/23 03:21 Antibiotics) General Stated Complaint: RashLesion KORTNEY: 4 Review of Systems Narrative: see HPI Exam Narrative Exam Narrative: General: Alert, well appearing, well nourished, in no acute distress. Head: Normocephalic, atraumatic Neck: Trachea midline, ?Neck supple. ENT: ?MMM.? No oropharygeal lesions or exudate. No intraoral lesions. TM's clear. No lesions in external auditory canal. Cardiac: ?RRR, no murmurs appreciated Resp: No respiratory distress. CTAB. Abd: ?Soft, non-distended, nontender : ?No suprapubic tenderness. Extremities: ?No deformities.? No peripheral edema. Neurologic: GCS 15. ? Moves all extremities freely against gravity Skin: Diffuse macular rash with frequent pock acosta across the face, extremities, and anterior portion of the trunk. No rash on back or buttocks. Blanchable erythema, no sloughing. No mucousal lesions. No vesicles or pustules. No petechia. No involvement of palms, soles, or nailbed. Course Vital Signs Vital signs: Vital Signs Temperature 36.6 C 08/08/23 03:16 Pulse 102 H 08/08/23 03:16 Respiratory Rate 16 08/08/23 03:16 Blood Pressure 125/80 08/08/23 03:16 Pulse Oximetry 96 08/08/23 03:16 Temperature 36.6 C 08/08/23 03:16 Temperature Source Temporal Artery Scan 08/08/23 03:16 Pulse 102 H 08/08/23 03:16 Respiratory Rate 16 08/08/23 03:16 Respiratory Effort Normal, Non-Labored 08/08/23 03:24 Blood Pressure 125/80 08/08/23 03:16 Blood Pressure Position Sitting 08/08/23 03:16 Pulse Oximetry 96 08/08/23 03:16 Oxygen Delivery Method Room Air 08/08/23 03:16 Oxygen Flow Rate 0 08/08/23 03:16 Pain Level 2 08/08/23 03:16 Medical Decision Making 38yo F presenting with chronic rash for 6 months. First noted in January of last year, has been fairly persistently present since then but waxing and waning in severity. Not acutely worse today. No systemic symptoms. No new medications or exposures. Vital signs reassuring. Systemically well. Exam shows scattered diffuse macular rash with frequent pock acosta across the face, extremities, and anterior portion of the trunk. No rash on back or buttocks. Blanchable erythema, no sloughing. No mucousal lesions (vaginal exam deffered to cessation systems outreach specialist appt today), No vesicles or pustules. No petechia. No involvement of palms, soles, or nailbed. History and exam not consistent with DIC, vasculitis, endocarditits, HSP, ITP/TTP, staph scaled skin, TEN/SJS, DRESS, cellulitis, varicella, measels, monkeypox, or other emergent pathology. Would not get labs. Unclear etiology of symptoms; certainly skin-picking is not helping and there is no evident rash on the areas of her body which are difficult for her reach. Appropriate for outpatient followup as already scheduled. Discharged home; discharge instructions and return precautions were reviewed with patient who verbalized understanding. All questions were answered and she is in full agreement with the plan. Quality:SDOH Health Related Social Needs: No Data to Display PFSH All Active Problems (Updated 08/08/23 @ 04:37 by Becki Hutton MD) Rash (Acute) Drug-induced constipation with proper administration (Acute) Opioid dependence (Acute) Chronic pain syndrome (Chronic) Bipolar disorder, current episode manic severe with psychotic features (Acute) AMA (advanced maternal age) multigravida 35+ (Acute) HRP (high risk ) (Acute) Nipple discharge (Acute) Menopausal and perimenopausal disorder (Acute) Substance use disorder (Acute) Nicotine dependence (Chronic) Chronic rhinosinusitis (Acute) Cyclothymic disorder (Chronic) Followed by [facility] ADHD (attention deficit hyperactivity disorder) (Chronic) Hyperlipidemia (Chronic) History of heroin abuse (Chronic) Quit 2016. On Subuxone through [employer] Medical History (Updated 08/08/23 @ 04:37 by Becki Hutton MD) Hx of renal calculi Family history of colon cancer Acute candidiasis of vulva and vagina Family history of malignant neoplasm of digestive organ Vitamin D deficiency Surgical History History of appendectomy S/P cystoscopy Family History Mother Substance abuse Depression Father Essential hypertension Hyperlipidemia Depression Sister Alcohol abuse Sister Alcohol abuse Maternal Grandfather No problems noted. Maternal Grandmother No problems noted. Paternal Grandfather Alzheimer's dementia Paternal Grandmother , in her 70s Alzheimer's dementia Son No problems noted. Son No problems noted. Social History Smoking/Tobacco Use Status: Current every day Tobacco Type: cigarettes and e- cigarettes Tobacco: How many years used: 15 Quit status: considering quitting Second Hand Exposure: Yes Smoking risk assessment performed?: Yes Alcohol Intake: former Drug use: Current Sobriety Substance use type: does not use and former substance user Details: 2 years clean. 08/08/23 Caregiver/Support person: No Household members: family Housing: apartment Communication Needs: None Do you need help understanding health information?: Never Pets and animals: Yes Pets and animals: bird(s) and turtle(s) Sexually active: Yes Do you think of yourself as: straight/heterosexual Current gender identity: female What is your relationship status?: How often do you talk on the phone with friends or family?: three or more times per week How often do you get together with friends or relatives?: once per week How often do you attend confucianism or restorationist services?: 4 or more times per year Do you belong to any clubs or organized social groups?: no Panel score (0-1 are the most socially isolated patients): 2 What type of physical activity do you participate in: walking Duration: 45-60 minutes/day Frequency: daily Erma/Mormonism: Sabianist Special erma needs: No Seatbelt use: sometimes Helmet use: Yes Helmet use: always Drive intox or ride w/intox carrier driver: No Do you feel safe at home: Yes Do you feel safe in your relationship?: Yes Female Reproductive History Menstrual control method: pills History History 4 Para 3 Hx # Term Pregnancies Multiple births Hx # Pregnancies Ectopic pregnancies AB induced 2 Hx Number of Living Children 2 AB spontaneous Past Pregnancies Del. Date GA/Weeks # Preg Succ Route Wgt Sex Labor Lgth Anesth esia Location Prov Complic 06/28/19 6 Delivery Date: 06/28/19 Last Updated by: Afua Grover LPN chemically induced AB, at approximate date of 06/28/19 @ [facility]
[2023-08-08 04:48] VITALS: PULSE 90; RESP 18; O2SAT 96
== END 2023-08-08 04:54 | disposition home or self-care (01) ==
PROVIDERS: Emergency Provider Student in an Organized Health Care Education/Training Program; PCP Nurse Practitioner Family
DX: R21 Rash and other nonspecific skin eruption (principal)
CPT/HCPCS: 99281; 99282

== ENCOUNTER 2023-08-09 10:52 | Outpatient (REF) | payer MEDICAID, SELFPAY ==
[2023-08-10 15:41] LABS: Chlamydia Result Negative (Negative); GC Result Negative (Negative)
== END 2023-08-09 10:53 | disposition home or self-care (01) ==
LOC: LBN 10:52
PROVIDERS: PCP Nurse Practitioner Family; Visit Provider Obstetrics & Gynecology
DX: N76.0 Acute vaginitis; Z11.3 Encounter for screening for infections with a predominantly sexual mode of transmission
CPT/HCPCS: 87491; 87591; 87480; 87510; 87660

== ENCOUNTER 2023-08-09 11:33 | Outpatient (CLI) | payer MEDICAID, SELFPAY ==
[2023-08-09 19:25] LABS: HIV-1/2 Ag & Ab Screen Negative (Negative)
[2023-08-09 19:37] LABS: Hepatitis A Antibody IgM Negative (Negative); Hepatitis B Core Antibody Negative (Negative); Hepatitis B surface Ag Negative (Negative); Hepatitis C Ab w Rflx HCV PCR Reactive (Negative)
[2023-08-10 09:16] LABS: Syphilis Serology (RPR) Negative (Negative)
[2023-08-10 13:59] LABS: HCV RNA Qualitative Undetected (Undetected)
== END 2023-08-09 11:34 | disposition home or self-care (01) ==
LOC: LBO 11:33
PROVIDERS: PCP Nurse Practitioner Family; Visit Provider Obstetrics & Gynecology
DX: Z72.51 High risk heterosexual behavior (principal); Z01.419 Encounter for gynecological examination (general) (routine) without abnormal findings
CPT/HCPCS: 36415; 86704; 86709; 86803; 87340; 87389; 87522; 86592

== ENCOUNTER → 2023-08-22 14:19 | Outpatient (CLI) | payer MEDICAID, SELFPAY ==
--- NOTE | 2023-08-22 13:30 | DI.RAD_ITS ---
Exam(s) XR LUMBAR SPINE COMPLETE EXAM: XR LUMBAR SPINE COMPLETE CLINICAL HISTORY: SEVERE BACK PAIN. TECHNIQUE: 2D digital imaging was performed. COMPARISON: No exams were available for comparison FINDINGS: Five views. Since of fracture. However, there is disc space narrowing at L5-S1 level and there is 1 cm anterolis thesis L5 upon S1 which appears to be related to pars defects at L5 level. Other disc spaces exhibit normal height. No scoliosis. No osseous lesions. IMPRESSION: Anterolisthesis L5 upon S1 which appears to be related to pars defects at L5 level. Also disc space narrowing at this level evident. DATA REPOSITORY: RADIATION DOSE DELIVERED:
== END ==
PROVIDERS: PCP Nurse Practitioner Family; Visit Provider Nurse Practitioner Family
DX: M51.37 Other intervertebral disc degeneration, lumbosacral region (principal)
CPT/HCPCS: 72110

== ENCOUNTER 2023-08-23 15:57 | Outpatient (REF) | payer MEDICAID, SELFPAY | END 2023-08-23 15:58 | disposition home or self-care (01) | LOC: LBN 15:57 | PROVIDERS: PCP Nurse Practitioner Family; Visit Provider Nurse Practitioner Family | DX: B82.9 Intestinal parasitism, unspecified (principal) | CPT/HCPCS: 87177 ==

== ENCOUNTER 2023-08-25 18:41 | Emergency (ER) | payer MEDICAID, SELFPAY ==
[2023-08-25 18:48] VITALS: BP 109/74; PULSE 96; RESP 18; TEMP 36.5; O2SAT 97
--- NOTE | 2023-08-25 18:51 | W.ED.GENAD ---
Discharge Plan Disposition Patient Disposition: Home Condition: Stable Discharge Details Clinical Impression: Rash, Delusions of parasitosis Primary Care Provider: Lorenza Escobedo ED Provider: Ariel Wetzel Home Meds and New Rx's Prescriptions: New hydroxyzine HCl 10 mg tablet 10 mg PO TID PRN (Reason: anxiety/ itching) Qty: 10 0RF Rx Instructions: You may take 1 tablet at bedtime or up to 3 times daily as needed for anxiety and itching. It will make you sleepy. Please do not operate heavy machinery while taking this medication. permethrin [Elimite] 5 % cream 1 applic topical Q14D Qty: 60 0RF Rx Instructions: Apply to full body, apply second treatment 14 days after first treatment if rash remains No Action valacyclovir [Valtrex] 1 gram tablet 1,000 mg PO BID Qty: 10 3RF propranolol 10 mg tablet 10 mg PO TID citalopram 30 mg capsule 30 mg PO DAILY lamotrigine [Lamictal] 150 mg tablet 150 mg PO DAILY norethindrone (contraceptive) [Deblitane] 0.35 mg tablet 0.35 mg PO DAILY olanzapine 5 mg tablet 5 mg PO TID PRN buprenorphine-naloxone [Suboxone] 8-2 mg film 2 film sublingual DAILY Patient Comments: out of med now Rx Instructions: place 1 strip/tab under (each) side of tongue gabapentin 300 mg capsule 300 mg PO BID PRN Patient Comments: TAKE ONE CAPSULE BY MOUTH TWICE A DAY NEEDED FOR PAIN dextroamphetamine-amphetamine 20 mg tablet 20 mg PO DAILY Patient Comments: TAKE ONE TABLET BY MOUTH EVERY DAY Discharge Instructions Instructions: Scabies (ED), Acute Rash (ED) Additional Instructions: Given you treatment for scabies. 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 Please follow-up with [facility] services if this continues despite treatment. Please take the hydroxyzine medication as directed. This will help with anxiety and itching. Use the permethrin cream as directed. Follow up with primary care provider in 3-5 days. Return to ED sooner if any worsening or concerns. Referrals: [facility] [Provider Group] - 1 day Lorenza Escobedo [Primary Care Provider] - 3 days Discharge Data Discharge Date/Time-TO BE ENTERED AT DEPARTURE: 08/26/23 01:01 HPI General Mode of arrival: ambulatory. Date/Time Provider Initiated Documentation: 08/25/23 18:51. Limitations to Documentation: no limitations. Information obtained by: patient, RN notes reviewed and old records reviewed. HPI Narrative: 38-year-old female presents to the ER with a chief complaint of rash and feeling that she has scabies or parasites. She is picking she states that she sees hairs moving on her body she feels like there is something wrong with her brain. She does have a past medical history of vitamin D deficiency, she does take Suboxone, also takes dextroamphetamine/amphetamine, lamotrigine and gabapentin. She is also taking valacyclovir. She does have a rash of multiple excoriations noted. She is picking at her fingers and her gums. She states that she feels them coming out of her eyes. No obvious bugs noted. She does have the rash however. Related Data Home Medications Medication Instructions Recorded Confirmed propranolol 10 mg tablet 10 mg PO TID 12/23/19 08/25/23 buprenorphine 8 mg-naloxone 2 mg 2 film sublingual DAILY 03/31/23 08/25/23 sublingual film (Suboxone) citalopram 30 mg capsule 30 mg PO DAILY 06/13/23 08/25/23 lamotrigine 150 mg tablet 150 mg PO DAILY 06/13/23 08/25/23 (Lamictal) norethindrone (contraceptive) 0.35 0.35 mg PO DAILY 06/13/23 08/25/23 mg tablet (Deblitane) olanzapine 5 mg tablet 5 mg PO TID PRN 06/13/23 08/25/23 dextroamphetamine-amphetamine 20 20 mg PO DAILY 06/23/23 08/25/23 mg tablet gabapentin 300 mg capsule 300 mg PO BID PRN 08/08/23 08/25/23 valacyclovir 1 gram tablet 1,000 mg PO BID #10 tabs 08/09/23 08/25/23 (Valtrex) hydroxyzine HCl 10 mg tablet 10 mg PO TID PRN anxiety/ itching 08/25/23 #10 tabs permethrin 5 % topical cream 1 applic topical Q14D rash 2 doses 08/25/23 (Elimite) #60 grams Previous Rx's Medication Instructions Recorded valacyclovir 1 gram tablet 1,000 mg PO BID #10 tabs 08/09/23 (Valtrex) hydroxyzine HCl 10 mg tablet 10 mg PO TID PRN anxiety/ itching 08/25/23 #10 tabs permethrin 5 % topical cream 1 applic topical Q14D rash 2 doses 08/25/23 (Elimite) #60 grams Allergies Allergy/AdvReac Type Severity Reaction Status Date / Time tetracycline [Tetracycline] Allergy Severe Skin Rash Verified 08/25/23 18:46 codeine AdvReac Severe Nausea Verified 08/25/23 18:46 Sulfa (Sulfonamide AdvReac Intermediate vomiting Verified 08/25/23 18:46 Antibiotics) General KORTNEY: 4 Review of Systems All systems reviewed & are unremarkable except as noted in HPI and below Integumentary/Breasts Skin/Breast: Reports as per HPI, Reports pruritus, Reports lesions and Reports sores Psychiatric Psychiatric: Reports as per HPI, Reports paranoia and Reports visual hallucinations Exam Narrative Exam Narrative: Constitutional: Alert and oriented x3. Appears stated age. Normal body habitus. Patient has pressured speech, is tearful and emotional, is picking at her abdomen, her mouth and gums. Head: Normocephalic, no trauma. Eyes: Pupils PERRL, Red reflex noted, EOM's intact. Eyelids symmetrical without lesions, discharge, or swelling. ENT: Bilateral TM's WNL, External ear normal to inspection, no mastoid TTP, swelling, or erythema, Nasal turbinates WNL, no nasal discharge. Normal dentition, Posterior pharynx WNL, no exudate. Chest: RRR, Normal S1, S2, distal pulses intact. Resp: Lungs clear to auscultation bilaterally, no wheezes, rales, or rhonchi. Abdomen: Soft, non-distended, Normoactive bowel sounds all 4 quads. Musculoskeletal: Normal gait, Moves all 4 extremities without difficulty. Skin: Multiple excoriations noted to her arms abdomen and face. No rash noted on her back or the backs of her legs. Neurologic: Cranial nerves II-XII intact. Alert and oriented x 3. Motor: No deficits noted. Sensory: Intact bilaterally all 4 extremities. Patient appears paranoid, flight of ideas. See psych assessment below. Hematologic/Lymphatic: No ecchymosis, no lymphadenopathy. Psych Appearance: disheveled Speech and Movement: agitated, pressured speech and restless Mood: expansive, manic mood and paranoid Affect: animated and elated Attitude: cooperative Thought Process: flight of ideas Thought Content: delusions Insight: fair Judgment: fair Medical Decision Making 38-year-old female presents to the ER with a chief complaint of rash and feeling that she has scabies or parasites. She is picking she states that she sees hairs moving on her body she feels like there is something wrong with her brain. She does have a past medical history of vitamin D deficiency, she does take Suboxone, also takes dextroamphetamine/amphetamine, lamotrigine and gabapentin. She is also taking valacyclovir. She does have a rash of multiple excoriations noted. She is picking at her fingers and her gums. She states that she feels them coming out of her eyes. No obvious bugs noted. She does have the rash however. Differential diagnosis includes but limited to drug use, delusional parasitic psychosis, scabies or similar. Will give Hydroxyzine here in dept, UDS ordered mental health evaluation ordered due to apparent psychotic features. Spoke with Kamryn with [facility] regarding patient , she agrees to come and have bedside eval. [facility] here at [facility]. Spoke again with patient, she continues to see bugs coming out of her skin, [facility] concerned for child safety and will be calling [facility], child is a known DCF patient. 2230: DCF will be taking custody of son this evening, awaiting there arrival, will determine care with [facility] for patient after DCF takes custody of child. UDS positive for amphetamines which patient is taking Adderall and methadone. Patient does not have methadone prescribed in her med list. Labs ordered to rule out other etiology for rash. Patient is passed out in room. ED staff is holding child he is sleeping breathing eupneic. Will defer to any [facility] for disposition of patient, according to Kamryn with any [facility] she will offer voluntary placement for patient. I do recommend the patient gets med management for the delusional psychosis to include either risperidone or olanzapine trial. However this needs to be determined by Mental health specialists. Patient is medically clear, no other obvious reason for current rash. Care to be handed off to provider Yefri Wetzel pending further eval and decision by [facility], at this time I agree with voluntary placement and need for further eval and treatment for possible psychotic component, do not feel that at this time patient is an immediate danger to her self. This text was generated using [employer] system, please disregard any oddities of phrase or misspellings. Medical Records Medical records reviewed: Yes I reviewed the patient's medical records. Lab Data Lab results reviewed: Yes I reviewed the patient's lab results. Lab results narrative: Laboratory Tests Range/Units 08/25/23 08/25/23 21:57 22:54 WBC (4.4-10.8) 10^3/uL 6.86 RBC (3.93-5.22) 10^6/uL 4.26 Hgb (11.2-15.7) g/dL 12.9 Hct (36.0-46.0) % 37.9 MCV (80-95) fL 89 MCH (27.0-33.0) pg 30.3 MCHC (32.0-36.0) % 34.0 RDW (11.7-14.6) % 12.8 Plt Count (130-400) 10^3/uL 235 MPV (8.0-11.0) fL 9.1 Immature Gran % % 0.1 Neutrophils % % 35.3 Lymphocytes % % 55.7 Monocytes % % 5.4 Eosinophils % % 2.8 Basophils % % 0.7 Nucleated RBC % (0.0-0.3) % 0.0 Absolute Neutrophils (1.2-6.7) 10^3/uL 2.42 Absolute Lymphocytes (1.2-3.4) 10^3/uL 3.82 H Absolute Monocytes (0.1-0.8) 10^3/uL 0.37 Absolute Eosinophils (0.0-0.7) 10^3/uL 0.19 Absolute Basophils (0.0-0.2) 10^3/uL 0.05 Sodium (136-145) mmol/L 144 Potassium (3.5-5.1) mmol/L 3.3 L Chloride (98-107) mmol/L 105 Carbon Dioxide (21.0-32.0) mmol/L 30.0 Anion Gap (3-11) mmol/L 9.0 BUN (7-18) mg/dL 15 Creatinine (0.55-1.02) mg/dL 0.9 Est GFR (CKD-EPI 2020) (mL/min/1.73m2) 83.40 Glucose (74-106) mg/dL 113 H Calcium (8.5-10.1) mg/dL 9.0 Total Bilirubin (0.2-1.0) mg/dL 0.2 AST (15-37) U/L 17 ALT (14-59) U/L 24 Alkaline Phosphatase (46-116) U/L 102 Total Protein (6.4-8.2) g/dL 6.9 Albumin (3.4-5.0) g/dL 3.8 TSH (0.36-3.74) uIU/mL 0.55 Urine Color (Yellow) Yellow Urine Clarity (Clear) Clear Urine pH (5-8) 6.0 Ur Specific [place] (1.005-1.025) >= 1.030 H Urine Protein (Neg-Trace) mg/dL Negative Urine Ketones (Negative) mg/dL Negative Urine Blood (Negative) Negative Urine Nitrite (Negative) Negative Urine Bilirubin (Negative) Negative Urine Urobilinogen (Up to 0.2) mg/dL 0.2 Ur Leukocyte Esterase (Negative) Negative Urine Glucose (Negative) mg/dL Negative Salicylates (<2.8) mg/dL < 2.8 Urine Opiates Screen (Negative) Negative Urine Methadone Screen (Negative) Positive A Acetaminophen (10-30) ug/mL < 2 Ur Barbiturates Screen (Negative) Negative Ur Tricyclics Screen (Negative) Negative Ur Amphetamines Screen (Negative) Positive A U Benzodiazepines Scrn (Negative) Negative Urine Cocaine Screen (Negative) Negative Ur THC Screen (Negative) Negative Ethyl Alcohol (<10) mg/dL < 3.0 Labs: Getting of August patient had a negative stool for ova and parasites. Quality:[facility] Health Related Social Needs: No Data to Display PFSH All Active Problems (Updated 08/25/23 @ 18:55 by Sri Fox NP) Delusions of parasitosis (Acute) Rash (Acute) Vaginal discharge (Acute) High risk sexual behavior (Acute) Rash (Acute) Drug-induced constipation with proper administration (Acute) Opioid dependence (Acute) Chronic pain syndrome (Chronic) Bipolar disorder, current episode manic severe with psychotic features (Acute) Nipple discharge (Acute) Substance use disorder (Acute) Nicotine dependence (Chronic) Chronic rhinosinusitis (Acute) Cyclothymic disorder (Chronic) Followed by [facility] ADHD (attention deficit hyperactivity disorder) (Chronic) Hyperlipidemia (Chronic) History of heroin abuse (Chronic) Quit 2016. On through Health Medical History (Updated 08/25/23 @ 18:55 by Sri Fox NP) Hx of renal calculi Family history of colon cancer Acute candidiasis of vulva and vagina Family history of malignant neoplasm of digestive organ Vitamin D deficiency Surgical History History of appendectomy S/P cystoscopy Family History Mother Substance abuse Depression Father Essential hypertension Hyperlipidemia Depression Sister Alcohol abuse Sister Alcohol abuse Maternal Grandfather No problems noted. Maternal Grandmother No problems noted. Paternal Grandfather Alzheimer's dementia Paternal Grandmother , in her 70s Alzheimer's dementia Son No problems noted. Son No problems noted. Social History Smoking/Tobacco Use Status: Current every day Tobacco Type: cigarettes and e-cigarettes Tobacco: How many years used: 15 Quit status: considering quitting Second Hand Exposure: Yes Smoking risk assessment performed?: Yes Alcohol Intake: former Drug use: Current Sobriety Substance use type: does not use and former substance user Details: 2 years clean. 08/08/23 Caregiver/Support person: No Household members: family Housing: apartment Communication Needs: None Do you need help understanding health information?: Never Pets and animals: Yes Pets and animals: bird(s) and turtle(s) Sexually active: Yes Do you think of yourself as: straight/heterosexual Current gender identity: female What is your relationship status?: How often do you talk on the phone with friends or family?: three or more times per week How often do you get together with friends or relatives?: once per week How often do you attend temple or mandaeism services?: 4 or more times per year Do you belong to any clubs or organized social groups?: no Panel score (0-1 are the most socially isolated patients): 2 What type of physical activity do you participate in: walking Duration: 45-60 minutes/day Frequency: daily Erma/Christianity: Alevism Special erma needs: No Seatbelt use: sometimes Helmet use: Yes Helmet use: always Drive intox or ride w/intox local flatbed driver: No Do you feel safe at home: Yes Do you feel safe in your relationship?: Yes Female Reproductive History Menstrual control method: pills History History 4 Para 3 Hx # Term Pregnancies Multiple births Hx # Pregnancies Ectopic pregnancies AB induced 2 Hx Number of Living Children 2 AB spontaneous Past Pregnancies Del. 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 Has received Hydroxyzine 25 mg PO. Medically cleared. Last updated by Sri Fox NP at 08/25/23 23:42
[2023-08-25] MEDS: hydrOXYzine HCL 25 MG TAB PO (19:45)
[2023-08-25 22:32] LABS: Bilirubin Negative (Negative); Blood Negative (Negative); Clarity Clear (Clear); Glucose Negative (Negative); Ketones Negative (Negative); Leukocyte Esterase Negative (Negative); Nitrite Negative (Negative); Specific Gravity >= 1.030 (1.005-1.025); Urobilinogen 0.2 mg/dL (Up to 0.2)
[2023-08-25 22:46] LABS: *AMPHETAMINES SCREEN URINE Positive (Negative); *BARBITURATES SCREEN URINE Negative (Negative); *BENZODIAZEPINES SCREEN URINE Negative (Negative); Cannabinoids THC Negative (Negative); Cocaine Screen,Urine Negative (Negative); METHADONE URINE SCREEN Positive (Negative); OPIATES URINE SCREEN Negative (Negative)
[2023-08-25 22:48] LABS: Tricyclic Antidepressants Negative (Negative)
[2023-08-25 23:05] LABS: Abs Immature Grans 0.01 10^3/uL (0.0-0.06); Absolute Basophil Count 0.05 10^3/uL (0.0-0.2); Absolute Eosinophil Count 0.19 10^3/uL (0.0-0.7); Absolute Lymphocyte Count 3.82 10^3/uL (1.2-3.4); Absolute Monocyte Count 0.37 10^3/uL (0.1-0.8); Absolute Neutrophil Count 2.42 10^3/uL (1.2-6.7); Basophils % 0.7 %; Eosinophils % 2.8 %; HCT 37.9 % (36.0-46.0); HGB 12.9 g/dL (11.2-15.7); Immature Grans % 0.1 %; Lymphocytes % 55.7 %; MCH 30.3 pg (27.0-33.0); MCV 89 fL (80-95); MPV 9.1 fL (8.0-11.0); Monocytes % 5.4 %; Neutrophils % 35.3 %; Platelet Count 235 10^3/uL (130-400); RBC 4.26 10^6/uL (3.93-5.22); RDW 12.8 % (11.7-14.6); RDW-SD 41.6 fL; WBC 6.86 10^3/uL (4.4-10.8)
[2023-08-25 23:28] LABS: ALT 24 U/L (14-59); AST 17 U/L (15-37); Albumin 3.8 g/dL (3.4-5.0); Alkaline Phosphatase 102 U/L (46-116); BUN 15 mg/dL (7-18); Bilirubin, Total 0.2 mg/dL (0.2-1.0); CREATININE 0.9 mg/dL (0.55-1.02); Chloride 105 mmol/L (98-107); Glucose 113 mg/dL (74-106); Potassium 3.3 mmol/L (3.5-5.1); Sodium 144 mmol/L (136-145); TSH (W/Ref FT4) 0.55 uIU/mL (0.36-3.74); Total Protein 6.9 g/dL (6.4-8.2)
[2023-08-25 23:30] LABS: ETHANOL BLOOD < 3.0 mg/dL (<10)
[2023-08-25 23:36] LABS: Salicylate < 2.8 mg/dL (<2.8)
[2023-08-25 23:37] LABS: Acetaminophen < 2 ug/mL (10-30)
--- NOTE | 2023-08-26 00:58 | W.EDPROG ---
Date of service: 08/26/23 Time of Service: 00:58 Medical Decision Making Patient was signed out to me pending reassessment by mental health. 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 DCF was consulted, and the child was transitioned to the patient's friends/neighbors. DCF was on board with the plan been facilitated this. Patient was then reassessed by mental health, and the patient still does have some delusions of parasitosis, but does not want admission. The patient denies any homicidal or suicidal ideations. Mental health does feel that the patient will still be safe at home. They do not feel that she is any risk to herself. Patient appears stable otherwise, patient was offered voluntary inpatient stay or additional treatment however she declines this at this time. At the recommendations of the mental health advocate, the patient will be discharged home. Discharge instructions and prescriptions were ordered by Keyana Browne. Will continue these. I have extensively reviewed the treatment plan and discharge instructions with the patient. I have addressed all patient concerns at this time. The patient was made aware of what symptoms to monitor for that would warrant a return to the emergency department. Discussed the plan with the patient, they demonstrate verbal understanding and agreement with our assessment and plan at this time. The documentation in this chart was dictated using [employer] dictation software. Please excuse any dictation errors. 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 Has received Hydroxyzine 25 mg PO. Medically cleared. Last updated by Sri Fox NP at 08/25/23 23:42 Discharge Plan Disposition Patient Disposition: Home Condition: Stable Discharge Details Clinical Impression: Rash, Delusions of parasitosis Primary Care Provider: Lorenza Escobedo ED Provider: Ariel Wetzel Home Meds and New Rx's Prescriptions: New hydroxyzine HCl 10 mg tablet 10 mg PO TID PRN (Reason: anxiety/ itching) Qty: 10 0RF Rx Instructions: You may take 1 tablet at bedtime or up to 3 times daily as needed for anxiety and itching. It will make you sleepy. Please do not operate heavy machinery while taking this medication. permethrin [Elimite] 5 % cream 1 applic topical Q14D Qty: 60 0RF Rx Instructions: Apply to full body, apply second treatment 14 days after first treatment if rash remains No Action valacyclovir [Valtrex] 1 gram tablet 1,000 mg PO BID Qty: 10 3RF propranolol 10 mg tablet 10 mg PO TID citalopram 30 mg capsule 30 mg PO DAILY lamotrigine [Lamictal] 150 mg tablet 150 mg PO DAILY norethindrone (contraceptive) [Deblitane] 0.35 mg tablet 0.35 mg PO DAILY olanzapine 5 mg tablet 5 mg PO TID PRN buprenorphine-naloxone [Suboxone] 8-2 mg film 2 film sublingual DAILY Patient Comments: out of med now Rx Instructions: place 1 strip/tab under (each) side of tongue gabapentin 300 mg capsule 300 mg PO BID PRN Patient Comments: TAKE ONE CAPSULE BY MOUTH TWICE A DAY NEEDED FOR PAIN dextroamphetamine-amphetamine 20 mg tablet 20 mg PO DAILY Patient Comments: TAKE ONE TABLET BY MOUTH EVERY DAY Discharge Instructions Instructions: Scabies (ED), Acute Rash (ED) Additional Instructions: Given you treatment for scabies. 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 Please follow-up with [facility] human services if this continues despite treatment. Please take the hydroxyzine medication as directed. This will help with anxiety and itching. Use the permethrin cream as directed. Follow up with primary care provider in 3-5 days. Return to ED sooner if any worsening or concerns. Referrals: [facility] [Provider Group] - 1 day Lorenza Escobedo [Primary Care Provider] - 3 days
--- NOTE | 2023-08-26 00:59 | NUR.NOTE ---
Found patient's necklace in room after discharge. Necklace provided to [facility] as they are going to see her on Monday. Nursing Note:
== END 2023-08-26 01:01 | disposition home or self-care (01) ==
PROVIDERS: Registered Nurse Emergency; Emergency Provider Student in an Organized Health Care Education/Training Program; PCP Nurse Practitioner Family
DX: R21 Rash and other nonspecific skin eruption (principal); F22 Delusional disorders; F17.210 Nicotine dependence, cigarettes, uncomplicated; F17.290 Nicotine dependence, other tobacco product, uncomplicated
CPT/HCPCS: 00123; 36415; 80053; 80307; 81025; 99283; 80320; 80329; 81003; 84443; 85025

== ENCOUNTER 2024-02-16 09:00 | Day surgery (SDC) | payer MEDICAID, SELFPAY ==
--- NOTE | 2024-02-15 12:27 | W.PM.DSUDISC ---
Date of service: 02/16/24 Time of Service: 12:27 Discharge Plan Disposition Patient Disposition: Home Condition: Good Discharge Details Reason For Visit: screening colonoscopy Attending Provider: Francisco Khoury Primary Care Provider: Meena Doan Home Meds and New Rx's Prescriptions: Continued citalopram 30 mg capsule 30 mg PO DAILY lamotrigine [Lamictal] 150 mg tablet 150 mg PO DAILY buprenorphine-naloxone [Suboxone] 8-2 mg film 2 film sublingual DAILY Patient Comments: out of med now Rx Instructions: place 1 strip/tab under (each) side of tongue gabapentin 300 mg capsule 300 mg PO BID PRN Patient Comments: TAKE ONE CAPSULE BY MOUTH TWICE A DAY NEEDED FOR PAIN Discontinued bisacodyl [Dulcolax (bisacodyl)] 5 mg tablet,delayed release (DR/EC) 5 mg PO ONCE Qty: 4 0RF Rx Instructions: Take per colonoscopy instructions provided by ordering providers office polyethylene glycol 3350 17 gram/dose powder 17 g PO ONCE Qty: 238 0RF Rx Instructions: Take per colonoscopy instructions provided by ordering providers office Discharge Instructions Additional Instructions: Jackie, it was pleasure meeting you today, and I hope you are comfortable throughout the procedure. Your colonoscopy was totally normal. Based on your family history, I recommend a 5-year interval for your next screening colonoscopy. 1. If tolerated, consume a soft, low fiber diet for 1-2 days. [address] Do not drive, drink alcohol, operate machinery, make critical decisions, or do activities that require coordination or balance for 24 hours. 3. Because air was put into your colon during the procedure, expelling air from your rectum (passing gas or farting) is normal. 4. You may not have a bowel movement for 1-3 days because of the colonoscopy prep. This is normal. 5. Go directly to the emergency room if you notice any of the following: Develop chills (warm to touch), or if you have a thermometer and your temperature is above 101 Difficulty breathing or difficultly swallowing Persistent vomiting Severe abdominal pain, other than gas cramps Severe chest pain Black, tarry stools Any bleeding ? exceeding one tablespoon 6. Call your physician if the site where your intravenous was started becomes red, swollen, painful, and warm to touch. 7. Your physician has reviewed your pre-procedure medications. Please continue to take those medications as previously ordered. You will be given specific information/education regarding any changes to your medications before leaving. Activity:: Activity as Tolerated Diet:: As Tolerated Discharge Orders Discharge Orders: Discharge Order (Routine); Ordered 02/15/24 Ordered By: Francisco Khoury DS: Diagnosis Discharge Diagnosis (1) Encounter for screening colonoscopy: Status: Acute Asessment and Plan: Negative screening colonoscopy; based on family history 5-year follow-up
--- NOTE | 2024-02-15 12:29 | W.COLOREPORT ---
Date of service: 02/16/24 Time of Service: 12:29 Colonoscopy Report Date of procedure: 02/16/24 Pre-op diagnosis general: screening colonoscopy Post-op diagnosis procedure note: other (Negative screening colonoscopy) Procedure: colonoscopy Surgeon: Francisco Khoury Anesthesia Type: General:No Airway Estimated blood loss (mL): 0 Pathology: none sent Complications: None Disposition: same day Indications: Jackie is a 39 eyar old woman with a fmaily history of colon cancer. She needs her next screening colonoscopy Prep: Miralax/Dulcolax Procedure Start Time: 12:10 Procedure End Time: 12:23 Retraction Time: 8 Findings: Negative screening colonoscopy Procedure Description: After the induction of anesthesia, and with the patient in left lateral decubitus position, I began by performing an external anorectal exam.? Perineum and skin were normal, as was the anal verge.? There was no evidence of external hemorrhoids.? Next, I performed a digital rectal exam.? I did not appreciate any abnormal findings.? Next, I advanced a colonoscope into the rectal vault.? This was all normal-appearing.? Using insufflation, I then advanced the colonoscope beyond the rectal folds and into the sigmoid colon before advancing towards the cecum.? The quality of the prep was excellent.? The scope was noted to be in the cecum by identification of the ileocecal valve and appendiceal orifice.? I then began withdrawing the colonoscope using repeated irrigation as necessary for full evaluation of the colonic mucosa. I saw no signs of tumors, polyps, or any other pathology. ?Once the scope was withdrawn to the level of the rectum, great care was taken to examine portions of the rectal folds.? Finally, the scope was withdrawn and the patient was brought to the same-day surgery recovery unit as the anesthetic wore off. ?The findings and instructions were shared with the patient prior to discharge. [place] Bowel Prep [place] Bowel Prep Right Colon: 3 Left Colon: 3 Transverse Colon: 3 Total Score: 9
[2024-02-16 09:23] VITALS: BP 105/72; PULSE 63; RESP 20; TEMP 36.6; O2SAT 94
--- NOTE | 2024-02-16 11:55 | ANES.PREOP_ITS ---
General Info Date of Service Date Performed: 02/16/24 Height: 5 ft 3 in Weight: 67.7 kg Body Mass Index (BMI): 26.4 Surgical Procedure: Operation Date: 02/16/24 10:50 Proposed Procedure Side Surgeon p Kelin Khoury MD Meds Allergies and Home Medications Allergies Allergy/AdvReac Type Severity Reaction Status Date / Time tetracycline (Tetracycline) Allergy Severe Skin Rash Verified 02/16/24 09:20 codeine AdvReac Severe Nausea Verified 02/16/24 09:20 Sulfa (Sulfonamide AdvReac Intermediate vomiting Verified 02/16/24 09:20 Antibiotics) Home Medication ?Medication ?Instructions ?Recorded buprenorphine 8 mg-naloxone 2 mg 2 film sublingual DAILY 03/31/23 sublingual film (Suboxone) citalopram 30 mg capsule 30 mg PO DAILY 06/13/23 lamotrigine 150 mg tablet 150 mg PO DAILY 06/13/23 (Lamictal) gabapentin 300 mg capsule 300 mg PO BID PRN 08/08/23 Current Visit Medications: Current Medications Generic Name Dose Route Start Last Admin Trade Name Freq PRN Reason Stop Dose Admin Hyoscyamine Sulfate 0.125 mg 02/15/24 12:30 Hyoscyamine 0.125 Mg Sl/Oral/Chew SL 03/16/24 12:29 DIRECTED PRN IV Miscellaneous Supplies 1 each 02/16/24 06:00 Iv Access IV 03/16/24 23:59 DIRECTED YAJAIRA Sodium Chloride 0 ml 02/16/24 06:00 Normal Saline Flush 10 Ml Syr IV 03/16/24 23:59 PRN PRN Sodium Chloride 0 ml 02/16/24 06:00 Normal Saline 10 Ml Vial IJ 03/16/24 23:59 DIRECTED PRN Sterile Water 0 ml 02/16/24 06:00 Water,Injection,Sterile 10 Ml Vial IJ 03/16/24 23:59 DIRECTED PRN PFSH Active Problems Active Problems: Problem Status Onset Code Encounter for screening colonoscopy Acute Z12.11 Vaginal discharge Acute N89.8 High risk sexual behavior Acute Z72.51 Drug-induced constipation with proper administration Acute K59.03 Opioid dependence Acute F11.20 Chronic pain syndrome Chronic G89.4 Bipolar disorder, current episode manic severe with psychotic features Acute F31.2 Nipple discharge Acute N64.52 Substance use disorder Acute F19.90 Nicotine dependence Chronic F17.200 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 ADHD (attention deficit hyperactivity disorder) Chronic F90.9 Hyperlipidemia Chronic E78.5 History of heroin abuse Chronic Z87.898 Medical History Medical History Hx of renal calculi Family history of colon cancer Acute candidiasis of vulva and vagina Family history of malignant neoplasm of digestive organ Vitamin D deficiency Surgical History Surgical History History of appendectomy S/P cystoscopy Tobacco Smoking/Tobacco Use Status: Current every day Tobacco Type: cigarettes and e- cigarettes Passive smoking exposure: Yes Second hand exposure: Yes Alcohol Alcohol Intake: former Substance Use Substance use: Current Sobriety Substance use type: does not use and former substance user Details: 2 years clean. 08/08/23 Prental History History 4 Para 3 Hx # Term Pregnancies Multiple births Hx # Pregnancies Ectopic pregnancies AB induced 2 Hx Number of Living Children 2 AB spontaneous Past Pregnancies Del. Date GA/Weeks # Preg Succ Route Wgt Sex Labor Lgth Anesth esia Location Prov Complic 06/28/19 6 Delivery Date: 06/28/19 Last Updated by: Afua Grover LPN chemically induced AB, at approximate date of 06/28/19 @ [facility] Vital Signs and Lab Results Vital Signs Most Recent Vital Signs in EMR: Most Recent Vital Signs Temp Pulse Resp BP Pulse Ox 36.6 C 63 20 105/72 94 02/16/24 09:23 02/16/24 09:23 02/16/24 09:23 02/16/24 09:23 02/16/24 09:23 Point of Care Results Point of Care Results: POC- Test(urine) Negative 02/16/24 09:34 Lab Results Blood Type / Crossmatch: No Data to Display Complete Blood Count: 2 No Data to Display Complete Metabolic Panel: No Data to Display Liver Function Panel: No Data to Display Coagulation Panel: No Data to Display Cardiac Panel: No Data to Display Arterial Blood Gas: No Data to Display Venous Blood Gas: No Data to Display Pancreas Panel: No Data to Display Thyroid Panel: No Data to Display Infectious Disease: No Data to Display Blood Cultures: No Data to Display Toxicology Panel: No Data to Display Panel: No Data to Display Anesthesia Assessment and Plan Anesthesia History Personal History: No History of Anesthesia Complications Family History: No Family History of Anesthesia Complications Exercise Tolerance Exercise Tolerance: Metabolic Equivalents>4 Pertinent Negatives Pertinent Negatives: No Symptoms of GERD Cardiac & Pulmonary Exam Cardiac Exam: Normal S1/S2 Heart Sounds Pulmonary Exam: Clear Bilateral Breath Sounds Implantable Cardiac Device Does patient have a Pacemaker or an ICD?: No Airway Exam Known Difficult Airway: No Mallampati Class: 1 Mouth Opening: Normal (> 3cm) Thyromental Distance: Less than 3 cm Neck Range of Motion: Full ROM Neck Circumference: Normal Teeth Condition: Normal Dentition and Generalized Poor Dentition ASA Classification ASA Score: ASA 2 Emergency Case?: No NPO Status NPO Status: NPO Clears >2 hours, Solids >8 hours Status Status: Negative HCG Anesthesia Plan Resuscitation Status: Full Code Anesthesia Technique: General Anesthesia Airway Planned: Natural Airway Monitors Used: Standard Monitors
[2024-02-16 11:56] VITALS: BMI 26.4
[2024-02-16 12:29] VITALS: BP 108/69; PULSE 70; RESP 18; TEMP 36.6; O2SAT 97
--- NOTE | 2024-02-16 12:46 | W.ANESPOSTOP ---
Postoperative Evaluation Date, Time and Location Date Performed: 02/16/24 Time Performed: 12:35 Patient Location: Day Surgery Unit Vital Signs Most Recent Imported Vital Signs: Most Recent Vital Signs Temp Pulse Resp BP Pulse Ox 36.6 C 70 18 108/69 97 02/16/24 12:29 02/16/24 12:29 02/16/24 12:29 02/16/24 12:29 02/16/24 12:29 Pain Score Most Recent Pain Score: Most Recent Pain Score Pain Level 0 02/16/24 12:29 Assessment Mental Status: Awake (Alert & Oriented to Patient Baseline) Airway and Respiratory Function: Patent airway with normal (patient baseline) respiratory exam Cardiovascular Function: Hemodynamically Stable Hydration Status: Adequately Hydrated Nausea & Vomiting: No Nausea or Vomiting Pain: Pt. Denies Any Pain Peripheral Nerve Block: Patient did not receive a nerve block
[2024-02-16 12:47] VITALS: BP 102/73; PULSE 73; RESP 16; TEMP 36.6; O2SAT 96
== END 2024-02-16 12:56 | disposition home or self-care (01) ==
LOC: SUR 09:00
PROVIDERS: PCP Internal Medicine; Visit Provider Surgery
PROC: 0DJD8ZZ Inspection of Lower Intestinal Tract, Via Natural or Artificial Opening Endoscopic (ICD-10-PCS; CPT 45378; principal; 2024-02-16 10:45)
DX: Z12.11 Encounter for screening for malignant neoplasm of colon (principal); Z80.0 Family history of malignant neoplasm of digestive organs
CPT/HCPCS: 45378; 81025; J2704

== ENCOUNTER 2024-09-07 12:33 | Emergency (ER) | payer MEDICAID, SELFPAY ==
[2024-09-07 12:35] VITALS: BP 125/83; PULSE 65; RESP 20; TEMP 36.9; O2SAT 95
--- NOTE | 2024-09-07 12:57 | ED.GENADUL_ITS ---
Discharge Plan Disposition Patient Disposition: Home Condition: Stable Discharge Details Clinical Impression: Abdominal pain, Ovarian cyst Primary Care Provider: Meena Doan ED Provider: Sri Fox Home Meds and New Rx's Prescriptions: Continued gabapentin 300 mg capsule 300 mg PO BID PRN Patient Comments: TAKE ONE CAPSULE BY MOUTH TWICE A DAY NEEDED FOR PAIN buprenorphine-naloxone [Suboxone] 12-3 mg film 1 film sublingual BID Patient Comments: PLACE TWO FILMS UNDER THE TONGUE EVERY MORNING FOR 7 DAYS propranolol 10 mg tablet 10 mg PO BID PRN Patient Comments: TAKE ONE TABLET BY MOUTH TWICE A DAY NEEDED FOR ANXIETY escitalopram oxalate 20 mg tablet 20 mg PO DAILY Patient Comments: TAKE ONE TABLET BY MOUTH EVERY DAY lamotrigine 25 mg tablet 75 mg PO DAILY Patient Comments: TAKE THREE TABLETS BY MOUTH EVERY DAY Discharge Instructions Instructions: Abdominal Pain, Adult ED, Ovarian Cyst ED Additional Instructions: It does appear that you have recently had a ruptured right ovarian cyst which could be the cause of your abdominal pain. The CT also shows that you continue to have a fat-containing umbilical hernia but no bowel is within the hernia. Please call your surgeon who did the hernia repair for follow-up examination and to discuss the CT results. No evidence of urinary tract infection or any abnormalities on her lab work. Please take Tylenol or Ibuprofen with food every 4-6 hours as needed for pain and swelling. Follow up with primary care provider in 3-5 days. Return to ED sooner if any worsening or concerns. Thank you for allowing us to care for you today. Referrals: Meena Doan [Primary Care Provider] - 5 days HPI General Mode of arrival: ambulatory . Date/Time Provider Initiated Documentation: 09/07/24 12:39 . Limitations to Documentation: no limitations . Information obtained by: patient, RN notes reviewed and old records reviewed . HPI Narrative: 39-year-old female presents to the ER with a chief complaint of right lower quadrant abdominal pain which began this morning. She reports she had a hernia repair done in [place] approximately month and a half ago. She reports that she does have a history of appendicitis and an ovarian cyst and this feels like a combination of the 2. She did have a normal bowel movement today. Denies any vomiting or problems urinating. History of kidney stones, appendectomy, Bipolar, ADHD Related Data Home Medications ?Medication ?Instructions ?Recorded ?Confirmed gabapentin 300 mg capsule 300 mg PO BID PRN 08/08/23 09/07/24 buprenorphine 12 mg-naloxone 3 mg 1 film sublingual BID 09/07/24 09/07/24 sublingual film (Suboxone) escitalopram oxalate 20 mg tablet 20 mg PO DAILY 09/07/24 09/07/24 lamotrigine 25 mg tablet 75 mg PO DAILY 09/07/24 09/07/24 propranolol 10 mg tablet 10 mg PO BID PRN 09/07/24 09/07/24 Allergies Allergy/AdvReac Type Severity Reaction Status Date / Time tetracycline (Tetracycline) Allergy Severe Skin Rash Verified 09/07/24 12:42 codeine AdvReac Severe Nausea Verified 09/07/24 12:42 Sulfa (Sulfonamide AdvReac Intermediate vomiting Verified 09/07/24 12:42 Antibiotics) General Stated Complaint: Abd Prob KORTNEY: 3 Review of Systems All systems reviewed & are unremarkable except as noted in HPI and below Gastrointestinal Gastrointestinal: Reports as per HPI and Reports abdominal pain Exam Narrative Exam Narrative: Constitutional: Alert and oriented x3. Appears stated age. Normal body habitus. Head: Normocephalic, no trauma. Eyes: Pupils PERRL, Red reflex noted, EOM's intact. Eyelids symmetrical without lesions, discharge, or swelling. ENT: Bilateral TM's WNL, External ear normal to inspection, no mastoid TTP, swelling, or erythema, Nasal turbinates WNL, no nasal discharge. Normal dentition, Posterior pharynx WNL, no exudate. Chest: RRR, Normal S1, S2, distal pulses intact. Resp: Lungs clear to auscultation bilaterally, no wheezes, rales, or rhonchi. Abdomen: Soft, Normoactive bowel sounds all 4 quads. Healing surgical scar in the umbilicus, no masses no swelling redness drainage around the surgical incision. She does have generalized tenderness with palpation. Musculoskeletal: Normal gait, Moves all 4 extremities without difficulty. Skin: No suspicious rashes or lesions. Capillary refill less than 2 sec. Neurologic: Cranial nerves II-XII intact. Alert and oriented x 3. Motor: No deficits noted. Sensory: Intact bilaterally all 4 extremities. Hematologic/Lymphatic: No ecchymosis, no lymphadenopathy. Course Vital Signs Vital signs: Vital Signs Temperature 36.9 C 09/07/24 12:35 Pulse 65 09/07/24 12:35 Respiratory Rate 20 05/31/25 12:35 Blood Pressure 125/83 09/07/24 12:35 Pulse Oximetry 95 09/07/24 12:35 Temperature 36.9 C 09/07/24 12:35 Temperature Source Oral 09/07/24 12:35 Pulse 65 09/07/24 12:35 Respiratory Rate 20 09/07/24 12:35 Blood Pressure 125/83 09/07/24 12:35 Blood Pressure Position Sitting 09/07/24 12:35 Pulse Oximetry 95 09/07/24 12:35 Oxygen Delivery Method Room Air 09/07/24 12:35 Oxygen Flow Rate 0 09/07/24 12:35 Medical Decision Making 39-year-old female presents to the ER with a chief complaint of right lower quadrant abdominal pain which began this morning. She reports she had a hernia repair done in [place] approximately month and a half ago. She reports that she does have a history of appendicitis and an ovarian cyst and this feels like a combination of the 2. She did have a normal bowel movement today. Denies any vomiting or problems urinating. History of kidney stones, appendectomy, Bipolar, ADHD Abdominal pain workup ordered including CBC CMP lipase urinalysis urine test CT abdomen pelvis. Differential diagnosis includes not due to postop complication, ovarian cyst, gastroenteritis Lab workup is largely unremarkable no leukocytosis electrolytes within normal limits, no evidence for UTI. CT does show a fat-containing umbilical hernia, no evidence for incarceration noted on exam, there is a recently right ovarian cyst which has ruptured. This may be the cause for patient's pain. Will have her follow-up with her surgeon in [place] regarding the hernia and PCP as needed will discuss strict return instructions. This text was generated using Sedicidodiciation system, please disregard any oddities of phrase or misspellings. Medical Records Medical records reviewed: Yes I reviewed the patient's medical records. Imaging Data Radiologic Study: Imaging: CT Scan Radiologist's impression: FINDINGS: Liver: Hepatomegaly and diffuse fatty infiltrationNo mass. Gallbladder and biliary ducts: Normal. No calcified stones. No ductal dilation. Pancreas: Normal. No ductal dilation. Spleen: Normal. No splenomegaly. Adrenal glands: Normal. No mass. Kidneys and ureters: Normal. No hydronephrosis. Stomach and bowel: Moderate stool in the colon No obstruction. No mucosal thickening. Appendix: No evidence of appendicitis. Intraperitoneal space: Minimal pelvic fluid No free air. No significant fluid collection. Vasculature: Unremarkable. No abdominal aortic aneurysm. Lymph nodes: Unremarkable. No enlarged lymph nodes. Urinary bladder: Unremarkable as visualized. Reproductive: Right ovarian cyst measuring 1 cm. Bones/joints: Mild anterolisthesis of L5 on S1 is presumed degenerative. Severe bilateral foraminal stenosis at this level No acute fracture. Soft tissues: Right periumbilical fat containing hernia with minimal infiltration within IMPRESSION: Right periumbilical hernia containing fat as noted. Correlate clinically for incarceration Recently ruptured small right ovarian cyst Question constipation Thank you for allowing us to participate in the care of your patient. Dictated and Authenticated by: Javier Perez MD Lab Data Lab results reviewed: Yes I reviewed the patient's lab results. Labs: Laboratory Tests Range/Units 09/07/24 13:10 WBC (4.4-10.8) 10^3/uL 6.04 RBC (3.93-5.22) 10^6/uL 4.40 Hgb (11.2-15.7) g/dL 13.3 Hct (36.0-46.0) % 38.6 MCV (80-95) fL 88 MCH (27.0-33.0) pg 30.2 MCHC (32.0-36.0) % 34.5 RDW (11.7-14.6) % 11.9 Plt Count (130-400) 10^3/uL 291 MPV (8.0-11.0) fL 9.2 Immature Gran % % 0.2 Neutrophils % % 46.4 Lymphocytes % % 44.2 Monocytes % % 5.5 Eosinophils % % 3.0 Basophils % % 0.7 Nucleated RBC % (0.0-0.3) % 0.0 Absolute Neutrophils (1.2-6.7) 10^3/uL 2.81 Absolute Lymphocytes (1.2-3.4) 10^3/uL 2.67 Absolute Monocytes (0.1-0.8) 10^3/uL 0.33 Absolute Eosinophils (0.0-0.7) 10^3/uL 0.18 Absolute Basophils (0.0-0.2) 10^3/uL 0.04 Sodium (136-145) mmol/L 143 Potassium (3.5-5.1) mmol/L 3.7 Chloride (98-107) mmol/L 105 Carbon Dioxide (21.0-32.0) mmol/L 31.6 Anion Gap (3-11) mmol/L 6.4 BUN (7-18) mg/dL 18 Creatinine (0.55-1.02) mg/dL 0.8 Est GFR (CKD-EPI 2020) (mL/min/1.73m2) 95.46 Glucose (74-106) mg/dL 96 Calcium (8.5-10.1) mg/dL 10.1 Magnesium (1.8-2.4) mg/dL 1.8 Total Bilirubin (0.2-1.0) mg/dL 0.2 AST (15-37) U/L 21 ALT (14-59) U/L 25 Alkaline Phosphatase (46-116) U/L 96 Total Protein (6.4-8.2) g/dL 7.3 Albumin (3.4-5.0) g/dL 4.1 Lipase (<78) U/L 18 Urine Color (Yellow) Yellow Urine Clarity (Clear) Sl Cloudy Urine pH (5-8) 7.0 Ur Specific [place] (1.005-1.025) 1.020 Urine Protein (Neg-Trace) mg/dL Negative Urine Ketones (Negative) mg/dL Negative Urine Blood (Negative) Negative Urine Nitrite (Negative) Negative Urine Bilirubin (Negative) Negative Urine Urobilinogen (Up to 0.2) mg/dL 0.2 Ur Leukocyte Esterase (Negative) Negative Urine Glucose (Negative) mg/dL Negative Quality:SDOH Health Related Social Needs: No Data to Display PFSH All Active Problems (Updated 09/07/24 @ 14:40 by Sri Fox NP) Ovarian cyst (Acute) Abdominal pain (Acute) Encounter for screening colonoscopy (Acute) Vaginal discharge (Acute) High risk sexual behavior (Acute) Drug-induced constipation with proper administration (Acute) Opioid dependence (Acute) Chronic pain syndrome (Chronic) Bipolar disorder, current episode manic severe with psychotic features (Acute) Nipple discharge (Acute) Substance use disorder (Acute) Nicotine dependence (Chronic) Chronic rhinosinusitis (Acute) Cyclothymic disorder (Chronic) Followed by [facility] ADHD (attention deficit hyperactivity disorder) (Chronic) Hyperlipidemia (Chronic) History of heroin abuse (Chronic) Quit 2016. On Subuxone through [facility] Medical History Difficult intravenous access Ultrasound needed in past Hx of renal calculi Family history of colon cancer Acute candidiasis of vulva and vagina Family history of malignant neoplasm of digestive organ Vitamin D deficiency Surgical History History of colonoscopy (~02/2024) History of appendectomy S/P cystoscopy Family History Mother Substance abuse Depression Father Essential hypertension Hyperlipidemia Depression Sister Alcohol abuse Sister Alcohol abuse Maternal Grandfather No problems noted. Maternal Grandmother No problems noted. Paternal Grandfather Alzheimer's dementia Paternal Grandmother , in her 70s Alzheimer's dementia Son No problems noted. Son No problems noted. Social History Smoking/Tobacco Use Status: Current every day Tobacco Type: cigarettes and e- cigarettes Tobacco: How many years used: 15 Quit status: considering quitting Second Hand Exposure: Yes Smoking risk assessment performed?: Yes Alcohol Intake: former Drug use: Current Sobriety Substance use type: does not use and former substance user Details: 2 years clean. 08/08/23 Caregiver/Support person: No Household members: family Housing: apartment Communication Needs: None Do you need help understanding health information?: Never Pets and animals: Yes Pets and animals: bird(s) and turtle(s) Sexually active: Yes Do you think of yourself as: straight/heterosexual Current gender identity: female What is your relationship status?: How often do you talk on the phone with friends or family?: three or more times per week How often do you get together with friends or relatives?: once per week How often do you attend orthodox or advent services?: 4 or more times per year Do you belong to any clubs or organized social groups?: no Panel score (0-1 are the most socially isolated patients): 2 What type of physical activity do you participate in: walking Duration: 45-60 minutes/day Frequency: daily Erma/Sabianism: Worship Special erma needs: No Seatbelt use: sometimes Helmet use: Yes Helmet use: always Drive intox or ride w/intox service car driver: No Do you feel safe at home: Yes Do you feel safe in your relationship?: Yes Female Reproductive History Menstrual control method: pills History History 4 Para 3 Hx # Term Pregnancies Multiple births Hx # Pregnancies Ectopic pregnancies AB induced 2 Hx Number of Living Children 2 AB spontaneous Past Pregnancies Del. Date GA/Weeks # Preg Succ Route Wgt Sex Labor Lgth Anesth esia Location Prov Complic 06/28/19 6 Delivery Date: 06/28/19 Last Updated by: Afua Grover LPN chemically induced AB, at approximate date of 06/28/19 @ [facility] [place]
[2024-09-07 13:36] LABS: Abs Immature Grans 0.01 10^3/uL (0.0-0.06); Absolute Basophil Count 0.04 10^3/uL (0.0-0.2); Absolute Eosinophil Count 0.18 10^3/uL (0.0-0.7); Absolute Lymphocyte Count 2.67 10^3/uL (1.2-3.4); Absolute Monocyte Count 0.33 10^3/uL (0.1-0.8); Absolute Neutrophil Count 2.81 10^3/uL (1.2-6.7); Basophils % 0.7 %; HCT 38.6 % (36.0-46.0); HGB 13.3 g/dL (11.2-15.7); Immature Grans % 0.2 %; Lymphocytes % 44.2 %; MCH 30.2 pg (27.0-33.0); MCHC 34.5 % (32.0-36.0); MCV 88 fL (80-95); MPV 9.2 fL (8.0-11.0); Monocytes % 5.5 %; Neutrophils % 46.4 %; Platelet Count 291 10^3/uL (130-400); RDW 11.9 % (11.7-14.6); RDW-SD 38.7 fL; WBC 6.04 10^3/uL (4.4-10.8)
[2024-09-07 13:39] LABS: Bilirubin Negative (Negative); Blood Negative (Negative); Clarity Sl Cloudy (Clear); Glucose Negative (Negative); Ketones Negative (Negative); Leukocyte Esterase Negative (Negative); Nitrite Negative (Negative); Urobilinogen 0.2 mg/dL (Up to 0.2)
[2024-09-07] MEDS: Normal Saline - Diluent 50 ML VIAL IJ (13:44)
[2024-09-07] MEDS: Omnipaque 350 MG/ML 100 ML BTL IJ (13:52)
[2024-09-07 13:55] LABS: ALT 25 U/L (14-59); AST 21 U/L (15-37); Albumin 4.1 g/dL (3.4-5.0); Alkaline Phosphatase 96 U/L (46-116); Anion Gap 6.4 mmol/L (3-11); BUN 18 mg/dL (7-18); Bilirubin, Total 0.2 mg/dL (0.2-1.0); CO2 31.6 mmol/L (21.0-32.0); CREATININE 0.8 mg/dL (0.55-1.02); Calcium 10.1 mg/dL (8.5-10.1); Chloride 105 mmol/L (98-107); Estimated GFR 95.46 (mL/min/1.73m2); Glucose 96 mg/dL (74-106); Lipase 18 U/L (<78); Magnesium 1.8 mg/dL (1.8-2.4); Potassium 3.7 mmol/L (3.5-5.1); Sodium 143 mmol/L (136-145); Total Protein 7.3 g/dL (6.4-8.2)
--- NOTE | 2024-09-07 13:55 | DI.CT_ITS ---
Exam(s) CT ABDOMEN PELVIS W EXAM: CT ABDOMEN PELVIS W CLINICAL HISTORY: RLQ abd pain, recent hernia repair. TECHNIQUE: Imaging Protocol: Axial computed tomography images with coronal and sagittal reformatted images were created and reviewed CONTRAST MATERIAL: Intravenous: Omnipaque-350 75cc Oral: None COMPARISON: CT ABD PELVIS WITH CONTRAST from 03/08/2016 FINDINGS: VISUALIZED LUNG BASES: No nodules nor pleural effusions evident. ABDOMEN: There is no ascites. ANTERIOR ABDOMINAL WALL: There is a right para umbilical fat containing hernia now evident. This con tains fat and small mesenteric vessels. Does not contain bowel loops nor fluid within the hernia sac . The hernia sac measures 3 cm AP x 2.5 cm wide by 2.8 cm craniocaudal the hernia neck measures 1.7 cm craniocaudal by 1.7 cm wide. This hernia was not evident on the prior CT scan of 2016. There are no other anterior abdominal hernias and there is no evidence of significant inguinal hernia. LIVER: There are no focal hepatic lesions evident. No dilated intrahepatic ducts. GALLBLADDER/BILIARY: No obvious gallbladder pathology. CBD is not dilated. PANCREAS: Pancreatic head appears abnormally hypodense representing significant change from the prior 2016 study. Either related to inflammatory change or neoplasm. There is no regional lymphadenopath y. No adjacent vascular encasement. The pancreatic duct is not dilated. There is no peripancreatic fluid SPLEEN: Spleen is not enlarged. No obvious intrasplenic lesions. Splenic and portal veins are paten t. ADRENALS: There are no significant adrenal masses. KIDNEYS:Right kidney unremarkable. There is a small nonobstructive calculus in lower pole left kidne y measuring 3 mm. No solid renal masses. No calculi nor hydronephrosis.. ABDOMINAL AORTA: Abdominal aorta is not enlarged. Both pre and retroaortic left renal veins are note d. LYMPH NODES:There is no retroperitoneal nor paraaortic adenopathy. GI: There fluid-filled but nondilated small bowel loops. No significant fluid in the colon. No obvi ous colitis pattern nor significant diverticular disease in the colon. PELVIS: GI: Appendix appears to be surgically absent.No evidence of sigmoid diverticulitis. LYMPH NODES: There is no intrapelvic nor inguinal adenopathy. REPRODUCTIVE: Uterus and ovaries appear age-appropriate. No significant amount of free fluid in the pelvis. URINARY BLADDER: No calculi nor obvious masses evident OSSEOUS: No fractures and no significant osseous lesions. There is some disc space narrowing at L5-S1 level and there is mild degenerative anterolisthesis of L 5 upon S1 related to facet arthropathy. There are no pars defects evident. IMPRESSION: 1. There is a right para umbilical hernia now evident measuring 3 x 2.5 x 2.8 cm and containing mesen teric fat but no bowel loops. This hernia was not evident on the prior 2016 study. There is no evid ence of bowel obstruction. 2. The pancreatic head appears abnormally hypodense and the present study. This may be related to pa ncreatitis but cannot exclude pancreatic neoplasm. Further workup recommended. Recommend contrast i nfused abdominal MRI with pancreatic protocol. The pancreatic duct is not dilated. 3. There is a nonobstructive 3 millimeter solitary calculus in the lower pole left kidney. This calc ulus is unchanged in size and position from 2016. First read by [facility] Final report called by myself to ER provider Monday09/07/2024 at 3:35 p.m.. Main reason for this call was the appearance of the pancreatic head. RADIATION DOSE DELIVERED: 384.8mGy.cm Total DLP DATA REPOSITORY: All CT scans at this facility are submitted to the National Radiology Data Registry (NRDR) Dose Index Registry (DIR) with the [employer] [place] (ACR). RADIATION OPTIMIZATION: All CT scans at this facility use at least one of these dose optimization te chniques: automated exposure control; mA and/or kV adjustment per patient size (includes targeted exa ms where dose is matched to clinical indication); or iterative reconstruction.
--- NOTE | 2024-09-07 14:34 | DI.VRAD_ITS ---
PROCEDURE INFORMATION: Exam: CT Abdomen And Pelvis With Contrast Exam date and time: 09/07/2024 1:44 PM Age: 39 years old Clinical indication: Abdominal pain; Generalized; Prior surgery; Surgery date: 1-6 months; Surgery type: S/P hernia repair about 6 weeks ago TECHNIQUE: Imaging protocol: Computed tomography of the abdomen and pelvis with contrast. Radiation optimization: All CT scans at this facility use at least one of these dose optimization techniques: automated exposure control; mA and/or kV adjustment per patient size (includes targeted exams where dose is matched to clinical indication); or iterative reconstruction. Contrast material: OMNI 350; Contrast volume: 75 ml; Contrast route: INTRAVENOUS (IV); COMPARISON: CR XR LUMBAR SPINE COMPLETE 08/22/2023 1:42 PM FINDINGS: Liver: Hepatomegaly and diffuse fatty infiltrationNo mass. Gallbladder and biliary ducts: Normal. No calcified stones. No ductal dilation. Pancreas: Normal. No ductal dilation. Spleen: Normal. No splenomegaly. Adrenal glands: Normal. No mass. Kidneys and ureters: Normal. No hydronephrosis. Stomach and bowel: Moderate stool in the colon No obstruction. No mucosal thickening. Appendix: No evidence of appendicitis. Intraperitoneal space: Minimal pelvic fluid No free air. No significant fluid collection. Vasculature: Unremarkable. No abdominal aortic aneurysm. Lymph nodes: Unremarkable. No enlarged lymph nodes. Urinary bladder: Unremarkable as visualized. Reproductive: Right ovarian cyst measuring 1 cm. Bones/joints: Mild anterolisthesis of L5 on S1 is presumed degenerative. Severe bilateral foraminal stenosis at this level No acute fracture. Soft tissues: Right periumbilical fat containing hernia with minimal infiltration within IMPRESSION: Right periumbilical hernia containing fat as noted. Correlate clinically for incarceration Recently ruptured small right ovarian cyst Question constipation Dictated and Authenticated by: Javier Perez MD. Orderin Ruddy Fierro MD
--- NOTE | 2024-09-07 15:43 | W.ED.FU ---
Follow Up Plan: Received call from Dr. Yañez, radiologist about findings not noted by V rad radiologist on CT imaging. Pancreatic head appears abnormally hypodense, this represents a change from 2016 study. There is no regional lymphadenopathy. I did call Jackie and reviewed findings with her. Advised close follow-up with PCP for further evaluation/management. She voices agreement with plan of care, says she will call PCP Monday morning.
== END 2024-09-07 14:58 | disposition home or self-care (01) ==
PROVIDERS: Emergency Provider Registered Nurse Emergency; PCP Internal Medicine
DX: R10.31 Right lower quadrant pain; N83.291 Other ovarian cyst, right side
CPT/HCPCS: 99283; 99285; 81025; 36415; 80053; 83690; 74177; 81003; 83735; 85025; J3490

== ENCOUNTER 2024-12-24 10:12 | Emergency (ER) | payer MEDICAID, SELFPAY ==
[2024-12-24] VITALS (19 sets, daily range): BP systolic 95–132; BP diastolic 47–71; PULSE 50–80; RESP 10–16; TEMP 36.7; O2SAT 93–97
--- NOTE | 2024-12-24 10:00 | RT.EKG_ITS ---
APPROVED REPORT Exam: Resting ECG Reason for Exam: abd pain Patient Location: E HR:55 bpm ECG Measurements Heart Rate [address] 170 P 14 QRSd 81 QRS 13 QT 437 T 20 QTc 419 Conclusion Sinus bradycardia...rate< 60 No Occlusion MD
--- NOTE | 2024-12-24 10:24 | W.ED.GENAD ---
Discharge Plan Disposition Patient Disposition: Home Discharge Details Clinical Impression: Abdominal pain, acute, generalized, Pancreatic abnormality Primary Care Provider: Meena Doan ED Provider: Kaushik Rosales Home Meds and New Rx's Prescriptions: Continued gabapentin 300 mg capsule 300 mg PO BID PRN Patient Comments: TAKE ONE CAPSULE BY MOUTH TWICE A DAY NEEDED FOR PAIN buprenorphine-naloxone [Suboxone] 12-3 mg film 1 film sublingual BID Patient Comments: PLACE TWO FILMS UNDER THE TONGUE EVERY MORNING FOR 7 DAYS propranolol 10 mg tablet 10 mg PO BID PRN Patient Comments: TAKE ONE TABLET BY MOUTH TWICE A DAY NEEDED FOR ANXIETY escitalopram oxalate 20 mg tablet 20 mg PO DAILY Patient Comments: TAKE ONE TABLET BY MOUTH EVERY DAY lamotrigine 25 mg tablet 75 mg PO DAILY Patient Comments: TAKE THREE TABLETS BY MOUTH EVERY DAY Discharge Instructions Additional Instructions: You are seen in the emergency department for your abdominal pain. Blood work shows your kidneys well. Your CAT scan shows that you have not had any changes to the abnormal area at the head of your pancreas. Please follow-up with your primary care provider concerning the abnormality on the head of your pancreas as you will likely benefit from an MRI. As we discussed if you develop worsening pain nausea or vomiting that does not stop or if you have any other concerns please return to the emergency department. Please take this prescription for nausea meds and use as needed. Discharge Data Discharge Date/Time-TO BE ENTERED AT DEPARTURE: 12/24/24 12:52 HPI General Date/Time Provider Initiated Documentation: 12/24/24 10:23. HPI Narrative: MDM This is an overall very well-appearing afebrile and not tachycardic 39-year-old female with epigastric tenderness and history of pancreatic mass concerning for the possibility of malignancy for which she will undergo CT scan of her abdomen pelvis. I considered PE however the patient is PERC negative so did not send a D-dimer. I considered ACS however patient denies chest pain and has a nonischemic ECG showing sinus bradycardia at a rate of 55. Intervals are within normal limits. She has no signs of occlusion FL. She has a T wave inversion in lead III. There are no prior ECGs for comparison. She has no specific right upper quadrant tenderness to suggest acute cholecystitis. She does have a history of known parastomal hernias but no skin changes to suggest strangulation. No significant pain to suggest incarceration so I did not obtain a lactate. No rash to abdomen to suggest zoster. Patient does have some left flank pain raising the possibility of ureteral lithiasis. No back pain to suggest cauda equina syndrome nor any loss of bowel or bladder control. No history of anticoagulation nor recent spinal instrumentation to suggest increased risk for spinal epidural hematoma. In the absence of midline back pain and fevers I am not suspicious for spinal epidural abscess so I did not feel that the patient required an MRI. No dysuria nor frequency to suggest UTI. No rash to abdomen to suggest zoster. No erythematous area to abdomen to suggest cellulitis. Headache was not sudden onset to suggest subarachnoid hemorrhage so I do not feel patient requires CT scan of her head nor CT angiogram. She has no nuchal rigidity to suggest meningitis so no indication for lumbar puncture. She is neurologically intact so I am not suspicious for CVA so I do not feel that she be a candidate for lytics. Not altered to suggest encephalitis. No recent chiropractic manipulation to suggest increased risk for cervical arterial dissection. No recent generator exposure to suggest increased risk for carbon monoxide toxicity. 11:30 AM CBC showing leukopenia similar to prior from 2023. No anemia nor thrombocytopenia. Urinalysis nitrite negative not consistent with UTI. 12:20 PM Comprehensive metabolic panel with no CEDRIC. No anion gap. Normal bicarbonate no acute electrolyte nor LFT abnormalities. Reassuring normal lipase. Negative hCG. CT scan with no acute abnormalities. Known pancreatic head abnormality unchanged. 3:48 PM I met with the patient. She felt improved. We reviewed her reassuring labs. She had a normal TSH. We discussed that she should return if she developed any weakness nausea vomiting did not stop or if she had any other concerns. She was bradycardic at the time of discharge but is on outpatient propranolol. She understood her return indications and was discharged with an empiric trial of expectant outpatient management. HPI This is a patient with a history of pancreatic issues presenting with worsening pancreatic pain, nausea, headache, and ear pain. The patient reports a gradual worsening of her pancreatic condition, characterized by significant fatigue and nausea that has intensified over the past 3 to 4 days. She has not undergone an MRI but did have a PET scan, the results of which are unknown to her. She experiences significant discomfort when pressure is applied to her pancreas, to the point where it can induce vomiting. Her symptoms have been exacerbated by eating in recent days. She consulted her doctor on Monday primarily about her hernia, but also discussed her pancreatic issues. She attempted to contact him again on Monday, but received no response. Concurrently, she has been experiencing headaches, dental pain, and ear pain. The onset of these symptoms coincided with her nausea and pancreatic pain. She initially attributed the headache to her dental issues, but now suspects it may be related to her ears due to the presence of fluid and itching. She has not sought medical attention for these symptoms as they tend to resolve before her appointments. She has not taken any medication for her headache, which has remained consistent in severity. The headache developed gradually and was expected to resolve on its own, but it has persisted with intermittent relief. She is unsure if she has had a fever as she does not own a thermometer. She is currently in premenopause. She reports no recent exposure to generators or chiropractic manipulation of her neck. She reports no burning sensation during urination. She underwent surgery for a ruptured appendix 2 years ago, which resulted in an incisional hernia. The hernia was repaired, but has since recurred, necessitating another laparoscopic surgery. She is currently awaiting this procedure. PAST SURGICAL HISTORY: Appendectomy for ruptured appendix 2 years ago, incisional hernia repair. Exam General: Well-appearing in no acute distress speaking in complete sentences. Head: Normocephalic, atraumatic. Eye: Extraocular eye movements intact. No conjunctival injection. No scleral icterus. Ear, nose, mouth, throat: Grossly normal inspection. Normal voice, handling secretions normally. Bilateral TMs clear. Neck: Trachea midline. No nuchal rigidity. Cardiovascular: Well-perfused distal extremities. Respiratory: Nonlabored respiration. Clear lungs bilaterally. Gastrointestinal: Nondistended abdomen. Soft. Minimal epigastric tenderness. No sign of any obvious incarcerated hernias. No rash to abdomen. Back: No midline thoracic nor lumbar spinal tenderness. Musculoskeletal: No edema. Moving all 4 extremities spontaneously. Skin: Normal for age and race, grossly normal temperature and turgor. No acute rash. Neurologic: Alert and appropriate, no apparent acute deficits. Cranial nerves II through XII intact grossly. 5 out of 5 bilateral upper lower extremity strength. Psychiatric: Mood and manner are appropriate. Grooming and personal hygiene are appropriate. Related Data Home Medications ?Medication ?Instructions ?Recorded ?Confirmed gabapentin 300 mg capsule 300 mg PO BID PRN 08/08/23 12/24/24 buprenorphine 12 mg-naloxone 3 mg 1 film sublingual BID 09/07/24 12/24/24 sublingual film (Suboxone) escitalopram oxalate 20 mg tablet 20 mg PO DAILY 09/07/24 12/24/24 lamotrigine 25 mg tablet 75 mg PO DAILY 09/07/24 12/24/24 propranolol 10 mg tablet 10 mg PO BID PRN 09/07/24 12/24/24 Allergies Allergy/AdvReac Type Severity Reaction Status Date / Time tetracycline (Tetracycline) Allergy Severe Skin Rash Verified 09/07/24 12:42 codeine AdvReac Severe Nausea Verified 09/07/24 12:42 Sulfa (Sulfonamide AdvReac Intermediate vomiting Verified 09/07/24 12:42 Antibiotics) General KORTNEY: 3 PFSH All Active Problems (Updated 12/24/24 @ 12:26 by Kaushik Rosales MD) Pancreatic abnormality (Acute) Abdominal pain, acute, generalized (Acute) Encounter for screening colonoscopy (Acute) Vaginal discharge (Acute) High risk sexual behavior (Acute) Drug-induced constipation with proper administration (Acute) Opioid dependence (Acute) Chronic pain syndrome (Chronic) Bipolar disorder, current episode manic severe with psychotic features (Acute) Nipple discharge (Acute) Substance use disorder (Acute) Nicotine dependence (Chronic) Chronic rhinosinusitis (Acute) Cyclothymic disorder (Chronic) Followed by [facility] ADHD (attention deficit hyperactivity disorder) (Chronic) Hyperlipidemia (Chronic) History of heroin abuse (Chronic) Quit 2015. On Subuxone through [employer] Medical History Difficult intravenous access Ultrasound needed in past Hx of renal calculi Family history of colon cancer Acute candidiasis of vulva and vagina Family history of malignant neoplasm of digestive organ Vitamin D deficiency Surgical History History of colonoscopy (~02/2024) History of appendectomy S/P cystoscopy Family History Mother Substance abuse Depression Father Essential hypertension Hyperlipidemia Depression Sister Alcohol abuse Sister Alcohol abuse Maternal Grandfather No problems noted. Maternal Grandmother No problems noted. Paternal Grandfather Alzheimer's dementia Paternal Grandmother , in her 70s Alzheimer's dementia Son No problems noted. Son No problems noted. Social History Smoking/Tobacco Use Status: Current every day Tobacco Type: cigarettes and e-cigarettes Tobacco: How many years used: 15 Quit status: considering quitting Second Hand Exposure: Yes Smoking risk assessment performed?: Yes Alcohol Intake: former Drug use: Current Sobriety Substance use type: does not use and former substance user Details: 2 years clean. 08/08/23. Alcohol, heroin, and everything. Caregiver/Support person: No Household members: family Housing: apartment Communication Needs: None Do you need help understanding health information?: Never Pets and animals: Yes Pets and animals: bird(s) and turtle(s) Sexually active: Yes Do you think of yourself as: straight/heterosexual Current gender identity: female What is your relationship status?: How often do you talk on the phone with friends or family?: three or more times per week How often do you get together with friends or relatives?: once per week How often do you attend muslim or buddhist services?: 4 or more times per year Do you belong to any clubs or organized social groups?: no Panel score (0-1 are the most socially isolated patients): 2 What type of physical activity do you participate in: walking Duration: 45-60 minutes/day Frequency: daily Erma/Moravian: Religious Special erma needs: No Seatbelt use: sometimes Helmet use: Yes Helmet use: always Drive intox or ride w/intox school boat driver: No Do you feel safe at home: Yes Do you feel safe in your relationship?: Yes Female Reproductive History Menstrual control method: pills History History 4 Para 3 Hx # Term Pregnancies Multiple births Hx # Pregnancies Ectopic pregnancies AB induced 2 Hx Number of Living Children 2 AB spontaneous Past Pregnancies Del. Date GA/Weeks # Preg Succ Route Wgt Sex Labor Lgth Anesthesia Location Prov Complic 06/28/19 6 Delivery Date: 06/28/19 Last Updated by: Afua Grover LPN chemically induced AB, at approximate date of 06/28/19 @ [facility]
--- NOTE | 2024-12-24 10:45 | DI.CT_ITS ---
Exam(s) CT ABDOMEN PELVIS W EXAM: CT ABDOMEN PELVIS W CLINICAL HISTORY: abd pain TECHNIQUE: Imaging Protocol: Axial computed tomography images with coronal and sagittal reformatted images were created and reviewed. CONTRAST MATERIAL: Intravenous: Omnipaque 350 Contrast volume:75 mL Oral: No COMPARISON: CT RENAL COLIC WO CONTRAST from 10/13/2014 CT RENAL COLIC WO CONTRAST from 06/25/2015 CT ABD PELVIS WITH CONTRAST from 03/08/[address] ABDOMEN PELVIS W from 09/07/2024 FINDINGS: ABDOMEN: Lung Bases: No acute abnormality. Liver: Normal density. No measurable mass. Portal, Superior Mesenteric, and Splenic Veins: Unremarkable. Gallbladder and Biliary Tract: No radiodense calculus or dilation. Pancreas: There is again seen an area of decreased attenuation in the pancreatic head measuring 2 x 2.5 cm. This is unchanged compared to 09/07/2024. This was not present on the examination from 03/08/2016. Fatty infiltration or hepatic mass should be considered. Spleen: Normal. Adrenals: No masses seen. Kidneys: Normal size, contour and axis. There is a 3 mm nonobstructing stone in the lower pole of the left kidney. No masses seen. There is a circum aortic left renal vein. Abdominal Aorta: Abdominal portion non-dilated. Bowel: No obstruction or bowel wall thickening. There is no evidence of appendicitis. Peritoneal Cavity: No ascites, collection or mesenteric inflammatory response. No free air. Lymph Nodes: Within normal limits. Bones: Within normal limits for the patient's age. Soft Tissues: There is again seen a moderate size fat containing paraumbilical abdominal wall hernia. PELVIS: Bladder: Symmetric distention, no gross wall thickening. Reproductive Organs: Unremarkable as visualized. Lymph Nodes: Within normal limits. Bones: Within normal limits for the patient's age. IMPRESSION: 1. No acute abdominal or pelvic process. 2. Stable paraumbilical anterior abdominal wall hernia. 3. Stable area of decreased attenuation in the pancreatic head. This area should be further evaluated with an outpatient MRI of the abdomen without and with contrast. 4. Left nephrolithiasis. No obstructive uropathy. Unexpected findings RADIATION DOSE DELIVERED: 403.89mGy.cm Total DLP DATA REPOSITORY: All CT scans at this facility are submitted to the National Radiology Data Registry (NRDR) Dose Index Registry (DIR) with the [employer] (A[employer]). RADIATION OPTIMIZATION: All CT scans at this facility use at least one of these dose optimization techniques: automated exposure control; mA and/or kV adjustment per patient size (includes targeted exams where dose is matched to clinical indication); or iterative reconstruction.
[2024-12-24] MEDS: Normal Saline Flush 10 ML SYR IVP (11:07)
[2024-12-24] MEDS: Omnipaque 350 MG/ML 100 ML BTL IJ (11:07)
[2024-12-24] MEDS: Normal Saline - Diluent 50 ML VIAL IJ (11:07)
[2024-12-24 11:16] LABS: Abs Immature Grans 0.01 10^3/uL (0.0-0.06); HCT 38.8 % (36.0-46.0); HGB 13.1 g/dL (11.2-15.7); Immature Grans % 0.2 %; MCH 30.0 pg (27.0-33.0); MCHC 33.8 % (32.0-36.0); MCV 89 fL (80-95); MPV 9.5 fL (8.0-11.0); Platelet Count 233 10^3/uL (130-400); RBC 4.37 10^6/uL (3.93-5.22); RDW 11.9 % (11.7-14.6); RDW-SD 38.4 fL; WBC 4.25 10^3/uL (4.4-10.8)
[2024-12-24 11:24] LABS: Glucose Negative (Negative)
[2024-12-24] MEDS: Ketorolac 15 MG/ML VIAL IVP (11:28)
[2024-12-24] MEDS: Ondansetron O.D.T. 4 MG TABEF PO (11:28)
[2024-12-24] MEDS: Normal Saline 1,000 ML 1000 ML IV (11:29)
[2024-12-24 11:33] LABS: ALT 36 U/L (14-59); AST 27 U/L (15-37); Albumin 3.9 g/dL (3.4-5.0); Alkaline Phosphatase 91 U/L (46-116); Anion Gap 6.5 mmol/L (3-11); BUN 17 mg/dL (7-18); Bilirubin, Total 0.2 mg/dL (0.2-1.0); CO2 31.5 mmol/L (21.0-32.0); Calcium 9.5 mg/dL (8.5-10.1); Chloride 105 mmol/L (98-107); Estimated GFR 112.05 (mL/min/1.73m2); Glucose 116 mg/dL (74-106); Lipase 18 U/L (<78); Potassium 3.5 mmol/L (3.5-5.1); Sodium 143 mmol/L (136-145); Total Protein 7.0 g/dL (6.4-8.2)
[2024-12-24 11:39] LABS: HCG Qual (Serum) Negative
[2024-12-24 12:48] LABS: Lab Add On Test DONE
[2024-12-24] MEDS: Ondansetron O.D.T. 4 MG TABEF, 3 TABS/BTL PO (12:52)
[2024-12-24 13:16] LABS: TSH (W/Ref FT4) 0.37 uIU/mL (0.36-3.74)
== END 2024-12-24 12:52 | disposition home or self-care (01) ==
PROVIDERS: Emergency Provider Emergency Medicine; PCP Internal Medicine
DX: R10.84 Generalized abdominal pain (principal); Q45.3 Other congenital malformations of pancreas and pancreatic duct; R11.0 Nausea; R53.83 Other fatigue
CPT/HCPCS: 99283; 99285; 96374; 36415; 80053; 83690; 93005; 74177; 81003; 84443; 84703; 85025; 93010; J1885; J3490

== ENCOUNTER 2025-01-30 10:48 | Emergency (ER) | payer MEDICAID, SELFPAY ==
[2025-01-30 11:03] VITALS: BP 124/87; PULSE 82; RESP 20; TEMP 37; O2SAT 96
--- NOTE | 2025-01-30 11:15 | DI.CT_ITS ---
Exam(s) CT ABDOMEN PELVIS W EXAM: CT ABDOMEN PELVIS W CLINICAL HISTORY: Postoperative abdominal pain TECHNIQUE: Imaging Protocol: Axial computed tomography images with coronal and sagittal reformatted images were created and reviewed. CONTRAST MATERIAL: Intravenous: Omnipaque 350 Contrast volume:75 mL Oral: No COMPARISON: CT CT ABDOMEN PELVIS W from 09/07/2024 FINDINGS: ABDOMEN: Lung Bases: There is atelectasis in the lung bases. Liver: Normal density. No measurable mass. Portal, Superior Mesenteric, and Splenic Veins: Unremarkable. Gallbladder and Biliary Tract: No radiodense calculus or dilation. Pancreas: The 2 x 2.5 cm area of decreased attenuation in the head of the pancreas is unchanged. Spleen: Normal. Adrenals: No masses seen. Kidneys: Normal size, contour and axis. There is a nonobstructing stone in the lower pole of the left kidney. No masses seen. There is a circum aortic left renal vein. Abdominal Aorta: Abdominal portion non-dilated. Bowel: No obstruction or bowel wall thickening. There is no evidence of appendicitis. Peritoneal Cavity: There is a trace amount of fluid in the cul-de-sac which may be physiologic. There is mild infiltration in the soft tissues of the anterior abdomen which likely is postsurgical. No focal fluid collection is seen to suggest an intra-abdominal abscess. There is a small amount of intra-abdominal air which is likely postsurgical. Lymph Nodes: Within normal limits. Bones: Within normal limits for the patient's age. Soft Tissues: The patient is status post anterior abdominal wall hernia repair. Postsurgical changes are seen in the anterior abdominal wall. There is a small fluid collection within the incision bed. It measures 1.5 x 1.0 cm. PELVIS: Bladder: Symmetric distention, no gross wall thickening. Reproductive Organs: Unremarkable as visualized. Lymph Nodes: Within normal limits. Bones: Within normal limits for the patient's age. IMPRESSION: 1. Surgical changes of an anterior abdominal wall hernia repair. 2. Small 1.5 x 1.0 cm fluid collection within the incisional bed. This may represent a resolving hematoma, seroma or possible abscess. 3. No intra-abdominal abscess is seen. RADIATION DOSE DELIVERED: 411.14mGy.cm Total DLP DATA REPOSITORY: All CT scans at this facility are submitted to the National Radiology Data Registry (NRDR) Dose Index Registry (DIR) with the [employer] (ACR). RADIATION OPTIMIZATION: All CT scans at this facility use at least one of these dose optimization techniques: automated exposure control; mA and/or kV adjustment per patient size (includes targeted exams where dose is matched to clinical indication); or iterative reconstruction.
--- NOTE | 2025-01-30 11:21 | W.ED.GENAD ---
Discharge Plan Disposition Patient Disposition: Home Discharge Details Clinical Impression: Post-op pain Primary Care Provider: Meean Doan ED Provider: Kaushik Rosales Home Meds and New Rx's Prescriptions: Continued gabapentin 300 mg capsule 300 mg PO BID PRN Patient Comments: TAKE ONE CAPSULE BY MOUTH TWICE A DAY NEEDED FOR PAIN buprenorphine-naloxone [Suboxone] 12-3 mg film 1 film sublingual BID Patient Comments: PLACE TWO FILMS UNDER THE TONGUE EVERY MORNING FOR 7 DAYS propranolol 10 mg tablet 10 mg PO BID PRN Patient Comments: TAKE ONE TABLET BY MOUTH TWICE A DAY NEEDED FOR ANXIETY escitalopram oxalate 20 mg tablet 20 mg PO DAILY Patient Comments: TAKE ONE TABLET BY MOUTH EVERY DAY lamotrigine 25 mg tablet 75 mg PO DAILY Patient Comments: TAKE THREE TABLETS BY MOUTH EVERY DAY Discharge Instructions Additional Instructions: You are seen in the emerged part for your abdominal pain. Your CAT scan showed expected changes following your surgery. As we discussed your potassium was slightly low. Please ensure that you are eating and drinking well. If you begin vomiting do not stop or if you have any other concerns please return to the emergency department. Otherwise please call your general surgeon tomorrow to arrange for close outpatient follow-up. For your pain please take medications as follows: 1. Take acetaminophen (Tylenol), 1,000 mg (two 500 mg tabs) every 6 hours [2. Take ibuprofen (Advil), 800 mg every 8 hours.] HPI General Date/Time Provider Initiated Documentation: 01/30/25 11:05. HPI Narrative: MDM This is an uncomfortable appearing normothermic and not tachycardic 40-year-old female with postoperative abdominal pain and tenderness concerning for the possibility of postoperative infection versus undertreated pain for which patient will receive acetaminophen assessment of labs and CT scan. No pain out of proportion to suggest necrotizing soft tissue infection. Patient has not been vomiting to suggest small bowel obstruction. Will obtain urinalysis given dysuria. No rash to abdomen to suggest zoster. No specific right upper quadrant tenderness to suggest acute cholecystitis. Surgical site incisions appear to be healing well so I am not concerned for cellulitis. No rash to abdomen to suggest zoster. Patient denies shortness of breath so not suspicious for PE. No chest pain to suggest ACS. If she does not have an CEDRIC will consider treating with ketorolac. No history of AAA to suggest increased risk for ruptured AAA. Patient surgery was performed at [facility]. 12:40 PM Basic metabolic panel lacks CEDRIC. Mild hypokalemia. CBC lacks anemia thrombocytopenia and leukocytosis. Negative hCG. 1:[address] scan showed expected surgical changes with small 1.5 x 1 cm fluid collection within the incisional bed. Patient's pain is improved. Will reach out to general surgery to review images. Will treat mild hypokalemia with oral medications. 2:45 PM Undetectable troponin x 2. Normal reassuring magnesium. I was in touch with Dr. Alvarez from general surgery who reviewed the patient's scan. She felt that patient had post surgical changes. Patient I discussed that she should return for any rapidly expanding bruising nausea vomiting did not stop or any other concerns. 4:45 PM Patient had a reassuring urinalysis with no signs of UTI. We elected to defer opiates as patient is on outpatient buprenorphine/naloxone. We discussed 3 times daily ibuprofen 800 mg with acetaminophen. She will call her general surgeon tomorrow for follow-up. We also discussed that she should return for any concerning symptoms. HPI This is a female with a history of substance use disorder, presenting with abdominal pain. She underwent an outpatient umbilical hernia repair on 01/29/2025 and was discharged the same day. She is uncertain about the specifics of the procedure but recalls that a different approach to pain management was employed. Currently, she is not on any pain medication. She was prescribed Tylenol and a sleep aid post-surgery, but she reports minimal sleep. She experiences significant pressure in her abdomen. She has not had a bowel movement since the surgery and reports no gas. She reports no fever. Her last urination was today, which was painful and took approximately 30 minutes. She attributes this to the anesthesia wearing off. She also reports pain during urination. She believes her history of addiction, with 3.5 years of sobriety, may have influenced the decision to withhold pain medication. She did not anticipate this level of pain on the first day post-surgery. She has a past medical history of a ruptured appendix, which resulted in leakage and the formation of three abscesses, two of which required drainage via catheters. She recalls that when these catheters were flushed, the fluid drained out of her vagina. She reports a foul smell associated with this drainage. PAST SURGICAL HISTORY: Appendix rupture with abscess drainage via catheters Umbilical hernia repair on 01/29/2025 Exam General: Well-appearing in no acute distress speaking in complete sentences. Head: Normocephalic, atraumatic. Eye: Extraocular eye movements intact. No conjunctival injection. No scleral icterus. Ear, nose, mouth, throat: Grossly normal inspection. Normal voice, handling secretions normally. Neck: Trachea midline. Cardiovascular: Well-perfused distal extremities. Respiratory: Nonlabored respiration. Gastrointestinal: Nondistended abdomen. Soft. Diffuse minimal tenderness. No rebound. No guarding. Surgical incisions from trochanteric sites appear to be healing well. Musculoskeletal: No edema. Moving all 4 extremities spontaneously. Skin: Normal for age and race, grossly normal temperature and turgor. No acute rash. Neurologic: Alert and appropriate, no apparent acute deficits. Related Data Home Medications ?Medication ?Instructions ?Recorded ?Confirmed gabapentin 300 mg capsule 300 mg PO BID PRN 08/08/23 12/24/24 buprenorphine 12 mg-naloxone 3 mg 1 film sublingual BID 09/07/24 12/24/24 sublingual film (Suboxone) escitalopram oxalate 20 mg tablet 20 mg PO DAILY 09/07/24 12/24/24 lamotrigine 25 mg tablet 75 mg PO DAILY 09/07/24 12/24/24 propranolol 10 mg tablet 10 mg PO BID PRN 09/07/24 12/24/24 Allergies Allergy/AdvReac Type Severity Reaction Status Date / Time tetracycline (Tetracycline) Allergy Severe Skin Rash Verified 09/07/24 12:42 codeine AdvReac Severe Nausea Verified 09/07/24 12:42 Sulfa (Sulfonamide AdvReac Intermediate vomiting Verified 09/07/24 12:42 Antibiotics) General Stated Complaint: Abd Prob KORTNEY: 3 Course Vital Signs Vital signs: Vital Signs Temperature 37.0 C 01/30/25 11:03 Pulse 82 01/30/25 11:03 Respiratory Rate 20 01/30/25 11:03 Blood Pressure 124/87 01/30/25 11:03 Pulse Oximetry 96 01/30/25 11:03 Temperature 37.0 C 01/30/25 11:03 Pulse 82 01/30/25 11:03 Respiratory Rate 20 01/30/25 11:03 Blood Pressure 124/87 01/30/25 11:03 Blood Pressure Position Sitting 01/30/25 11:03 Pulse Oximetry 96 01/30/25 11:03 Oxygen Delivery Method Room Air 01/30/25 11:03 Oxygen Flow Rate 0 01/30/25 11:03 [facility] All Active Problems (Updated 01/30/25 @ 16:28 by Kaushik Rosales MD) Post-op pain (Acute) Encounter for screening colonoscopy (Acute) Vaginal discharge (Acute) High risk sexual behavior (Acute) Drug-induced constipation with proper administration (Acute) Opioid dependence (Acute) Chronic pain syndrome (Chronic) Bipolar disorder, current episode manic severe with psychotic features (Acute) Nipple discharge (Acute) Substance use disorder (Acute) Nicotine dependence (Chronic) Chronic rhinosinusitis (Acute) Cyclothymic disorder (Chronic) Followed by [facility] ADHD (attention deficit hyperactivity disorder) (Chronic) Hyperlipidemia (Chronic) History of heroin abuse (Chronic) Quit 2015. On Subuxone through [email or web address] Medical History Difficult intravenous access Ultrasound needed in past Hx of renal calculi Family history of colon cancer Acute candidiasis of vulva and vagina Family history of malignant neoplasm of digestive organ Vitamin D deficiency Surgical History History of colonoscopy (~02/2024) History of appendectomy S/P cystoscopy Family History Mother Substance abuse Depression Father Essential hypertension Hyperlipidemia Depression Sister Alcohol abuse Sister Alcohol abuse Maternal Grandfather No problems noted. Maternal Grandmother No problems noted. Paternal Grandfather Alzheimer's dementia Paternal Grandmother , in her 70s Alzheimer's dementia Son No problems noted. Son No problems noted. Social History Smoking/Tobacco Use Status: Current every day Tobacco Type: cigarettes and e-cigarettes Tobacco: How many years used: 15 Quit status: considering quitting Second Hand Exposure: Yes Smoking risk assessment performed?: Yes Alcohol Intake: former Drug use: Current Sobriety Substance use type: does not use and former substance user Details: 2 years clean. 08/08/23. Alcohol, heroin, and everything. Caregiver/Support person: No Household members: family Housing: apartment Communication Needs: None Do you need help understanding health information?: Never Pets and animals: Yes Pets and animals: bird(s) and turtle(s) Sexually active: Yes Do you think of yourself as: straight/heterosexual Current gender identity: female What is your relationship status?: How often do you talk on the phone with friends or family?: three or more times per week How often do you get together with friends or relatives?: once per week How often do you attend hinduism or jehovah's witness services?: 4 or more times per year Do you belong to any clubs or organized social groups?: no Panel score (0-1 are the most socially isolated patients): 2 What type of physical activity do you participate in: walking Duration: 45-60 minutes/day Frequency: daily Erma/Yazdanism: Syn[employer] Special erma needs: No Seatbelt use: sometimes Helmet use: Yes Helmet use: always Drive intox or ride w/intox grab driver: No Do you feel safe at home: Yes Do you feel safe in your relationship?: Yes Female Reproductive History Menstrual control method: pills History History 4 Para 3 Hx # Term Pregnancies Multiple births Hx # Pregnancies Ectopic pregnancies AB induced 2 Hx Number of Living Children 2 AB spontaneous Past Pregnancies Del. Date GA/Weeks # Preg Succ Route Wgt Sex Labor Lgth Anesthesia Location Prov Complic 06/28/19 6 Delivery Date: 06/28/19 Last Updated by: Afua Grover LPN chemically induced AB, at approximate date of 06/28/19 @ [facility]
[2025-01-30 12:13] LABS: Abs Immature Grans 0.01 10^3/uL (0.0-0.06); HCT 36.4 % (36.0-46.0); HGB 12.2 g/dL (11.2-15.7); Immature Grans % 0.1 %; MCH 30.2 pg (27.0-33.0); MCHC 33.5 % (32.0-36.0); MCV 90 fL (80-95); MPV 9.3 fL (8.0-11.0); Platelet Count 226 10^3/uL (130-400); RBC 4.04 10^6/uL (3.93-5.22); RDW 12.3 % (11.7-14.6); RDW-SD 40.7 fL; WBC 7.80 10^3/uL (4.4-10.8)
[2025-01-30] MEDS: ACETAMINOPHEN 1,000 MG/100 ML BAG 400 MG IVPB (12:17)
[2025-01-30] MEDS: Normal Saline 1,000 ML 1000 ML IV (12:17)
[2025-01-30 12:23] LABS: Anion Gap 8.0 mmol/L (3-11); BUN 12 mg/dL (7-18); CO2 30.0 mmol/L (21.0-32.0); Calcium 9.2 mg/dL (8.5-10.1); Chloride 104 mmol/L (98-107); Estimated GFR 115.57 (mL/min/1.73m2); Glucose 100 mg/dL (74-106); Potassium 3.0 mmol/L (3.5-5.1); Sodium 142 mmol/L (136-145)
[2025-01-30 12:31] LABS: HCG Qual (Serum) Negative
[2025-01-30] MEDS: Normal Saline - Diluent 50 ML VIAL IJ (12:32)
[2025-01-30] MEDS: Normal Saline Flush 10 ML SYR IVP (12:33)
[2025-01-30] MEDS: Omnipaque 350 MG/ML 100 ML BTL IJ (12:34)
[2025-01-30 13:12] VITALS: BP 124/87; PULSE 82; RESP 20; TEMP 37; O2SAT 96
[2025-01-30 13:45] LABS: Magnesium 2.0 mg/dL (1.8-2.4)
[2025-01-30 14:00] LABS: Troponin I < 4 ng/L (<or=51)
[2025-01-30 14:01] LABS: Troponin I < 4 ng/L (<or=51)
[2025-01-30 16:19] LABS: Glucose Negative (Negative)
[2025-01-30] MEDS: Potassium Chloride 20 MEQ TABCR 40 MEQ PO (16:30)
[2025-01-30 16:33] VITALS: BP 113/72; PULSE 74; RESP 20; O2SAT 98
== END 2025-01-30 16:48 | disposition home or self-care (01) ==
PROVIDERS: Emergency Provider Emergency Medicine; PCP Internal Medicine
DX: G89.28 Other chronic postprocedural pain (principal); R10.84 Generalized abdominal pain; E87.6 Hypokalemia; F17.290 Nicotine dependence, other tobacco product, uncomplicated; F17.210 Nicotine dependence, cigarettes, uncomplicated
CPT/HCPCS: 80048; 80053; 96361; 96365; 99285; 74177; 81003; 83735; 84484; 84703; 85025; J0131; J3490

== ENCOUNTER 2025-03-30 11:15 | Emergency (ER) | payer MEDICAID, SELFPAY ==
[2025-03-30 11:20] VITALS: BP 123/76; PULSE 107; RESP 18; TEMP 36.6; O2SAT 97
[2025-03-30 11:25] VITALS: BP 123/76; PULSE 107; RESP 18; TEMP 36.6; O2SAT 97
[2025-03-30 12:29] VITALS: RESP 18
[2025-03-30 12:50] VITALS: BP 117/76; PULSE 86; O2SAT 98
--- NOTE | 2025-03-31 16:35 | W.ED.GENAD ---
Discharge Plan Disposition Patient Disposition: Home Condition: Stable Discharge Details Clinical Impression: Abscess of face Primary Care Provider: Meena Doan ED Provider: Mary Lamb Home Meds and New Rx's Prescriptions: New clindamycin HCl [Cleocin HCl] 150 mg capsule 450 mg PO TID Qty: 90 0RF Continued benzonatate 200 mg capsule 200 mg PO TID Qty: 30 0RF amoxicillin-pot clavulanate 875-125 mg tablet 1 tab PO BID Qty: 20 0RF Rx Instructions: Take with meals. gabapentin 300 mg capsule 300 mg PO BID PRN Patient Comments: TAKE ONE CAPSULE BY MOUTH TWICE A DAY NEEDED FOR PAIN buprenorphine-naloxone [Suboxone] 12-3 mg film 1 film sublingual BID Patient Comments: PLACE TWO FILMS UNDER THE TONGUE EVERY MORNING FOR 7 DAYS propranolol 10 mg tablet 10 mg PO BID PRN Patient Comments: TAKE ONE TABLET BY MOUTH TWICE A DAY NEEDED FOR ANXIETY escitalopram oxalate 20 mg tablet 20 mg PO DAILY Patient Comments: TAKE ONE TABLET BY MOUTH EVERY DAY lamotrigine 25 mg tablet 75 mg PO DAILY Patient Comments: TAKE THREE TABLETS BY MOUTH EVERY DAY Discharge Instructions Instructions: Abscess Incision and Drainage (DC) Additional Instructions: Take the antibiotics as prescribed Apply warm compresses, 10 minutes/hr or as frequently as possible and may apply light pressure to encourage drainage This is an abscess and will likely continue to drain that a tract has been formed I have sent your wound for culture we will let you know if you are on the appropriate antibiotics Please return with spreading redness, fever, worsening pain Motrin and Tylenol as needed for discomfort Recheck with PCP in 24 to 48 hours Stand Alone Forms: Portal Information Referrals: Meena Doan [Primary Care Provider] Discharge Data Discharge Date/Time-TO BE ENTERED AT DEPARTURE: 03/30/25 13:05 HPI General Date/Time Provider Initiated Documentation: 03/30/25 12:36. HPI Narrative: 40-year-old female presents with abscess to right face, eyebrow. Patient states the symptoms started approximately 3 days ago. She denies any fever chills or chance of . Denies any change in vision. She denies recent IV drug use. Related Data Home Medications ?Medication ?Instructions ?Recorded ?Confirmed gabapentin 300 mg capsule 300 mg PO BID PRN 08/08/23 03/05/25 buprenorphine 12 mg-naloxone 3 mg 1 film sublingual BID 09/07/24 03/05/25 sublingual film (Suboxone) escitalopram oxalate 20 mg tablet 20 mg PO DAILY 09/07/24 03/05/25 lamotrigine 25 mg tablet 75 mg PO DAILY 09/07/24 03/05/25 propranolol 10 mg tablet 10 mg PO BID PRN 09/07/24 03/05/25 amoxicillin 875 mg-potassium 1 tab PO BID #20 tabs 03/05/25 03/05/25 clavulanate 125 mg tablet benzonatate 200 mg capsule 200 mg PO TID #30 caps 03/05/25 03/05/25 clindamycin HCl 150 mg capsule 450 mg (3 x 150 mg) PO TID #90 caps 03/30/25 (Cleocin HCl) Previous Rx's ?Medication ?Instructions ?Recorded amoxicillin 875 mg-potassium 1 tab PO BID #20 tabs 03/05/25 clavulanate 125 mg tablet benzonatate 200 mg capsule 200 mg PO TID #30 caps 03/05/25 clindamycin HCl 150 mg capsule 450 mg (3 x 150 mg) PO TID #90 caps 03/30/25 (Cleocin HCl) Allergies Allergy/AdvReac Type Severity Reaction Status Date / Time tetracycline (Tetracycline) Allergy Severe Skin Rash Verified 03/30/25 11:25 codeine AdvReac Severe Nausea Verified 03/30/25 11:25 Sulfa (Sulfonamide AdvReac Intermediate vomiting Verified 03/30/25 11:25 Antibiotics) General Stated Complaint: GenMedical KORTNEY: 3 Exam Narrative Exam Narrative: Approximately 1 inch abscess over the medial aspect of the right, fluctuant surrounding cellulitis approximately 2 inch region, no proptosis no involvement of right eye extraocular muscles intact Course Vital Signs Vital signs: Vital Signs Temperature 36.6 C 03/30/25 11:20 Pulse 107 H 03/30/25 11:20 Respiratory Rate 18 03/30/25 11:20 Blood Pressure 123/76 03/30/25 11:20 Pulse Oximetry 97 03/30/25 11:20 Temperature 36.6 C 03/30/25 11:25 Temperature Source Oral 03/30/25 11:25 Pulse 86 03/30/25 12:50 Respiratory Rate 18 03/30/25 12:29 Respiratory Effort Normal, Non-Labored 12/21/25 12:29 Respiratory Depth Normal 03/30/25 12:29 Respiratory Pattern Normal 03/30/25 12:29 Blood Pressure 117/76 03/30/25 12:50 Blood Pressure Mean 89 03/30/25 12:50 Blood Pressure Position Sitting 03/30/25 11:25 Pulse Oximetry 98 03/30/25 12:50 Oxygen Delivery Method Room Air 03/30/25 12:50 Oxygen Flow Rate 0 03/30/25 12:50 Pain Level 7 03/30/25 11:25 Lab/Test Results Lab/Test Results: 03/30/25 12:30 Face - Right Wound Culture - Preliminary Staph aureus, MRSA 03/30/25 12:30 Face - Right Gram Stain - Final Procedure Abscess Drainage Date of Procedure: 03/30/25 Time of Procedure: 16:40 Provider that performed the procedure: Mary Lamb Standard Time Out Performed: Yes Patient Consented: Verbally Location of Exam: Face Medical Decision Making Patient with abscess to right eyebrow region, with fluctuance I did use an 18-gauge needle and attempt to aspirate the site. Then was cleansed and approximately 2 cc of lidocaine without epinephrine was injected into the region. There is a small amount of purulent drainage however patient was not able to tolerate the procedure. i did place patient on clindamycin and encouraged warm compresses. pending wound culture. Recheck in 48 hours encouraged. Return precautions reviewed and patient states understanding PFSH All Active Problems (Updated 03/30/25 @ 12:49 by JEOVANNY Martin) Abscess of face (Acute) Encounter for screening colonoscopy (Acute) Vaginal discharge (Acute) High risk sexual behavior (Acute) Drug-induced constipation with proper administration (Acute) Opioid dependence (Acute) Chronic pain syndrome (Chronic) Bipolar disorder, current episode manic severe with psychotic features (Acute) Nipple discharge (Acute) Substance use disorder (Acute) Nicotine dependence (Chronic) Chronic rhinosinusitis (Acute) Cyclothymic disorder (Chronic) Followed by [facility] ADHD (attention deficit hyperactivity disorder) (Chronic) Hyperlipidemia (Chronic) History of heroin abuse (Chronic) Quit 2015. On Subuxone through [employer] Medical History Difficult intravenous access Ultrasound needed in past Hx of renal calculi Family history of colon cancer Acute candidiasis of vulva and vagina Family history of malignant neoplasm of digestive organ Vitamin D deficiency Surgical History History of colonoscopy (~02/2024) History of appendectomy S/P cystoscopy Family History Mother Substance abuse Depression Father Essential hypertension Hyperlipidemia Depression Sister Alcohol abuse Sister Alcohol abuse Maternal Grandfather No problems noted. Maternal Grandmother No problems noted. Paternal Grandfather Alzheimer's dementia Paternal Grandmother in her 70s Alzheimer's dementia Son No problems noted. Son No problems noted. Social History Smoking/Tobacco Use Status: Current every day Tobacco Type: cigarettes and e-cigarettes Tobacco: How many years used: 15 Quit status: considering quitting Second Hand Exposure: Yes Smoking risk assessment performed?: Yes Alcohol Intake: former Drug use: Current Sobriety Substance use type: does not use and former substance user Details: 2 years clean. 08/08/23. Alcohol, heroin, and everything. Caregiver/Support person: No Household members: family Housing: apartment Communication Needs: None Do you need help understanding health information?: Never Pets and animals: Yes Pets and animals: bird(s) and turtle(s) Sexually active: Yes Do you think of yourself as: straight/heterosexual Current gender identity: female What is your relationship status?: How often do you talk on the phone with friends or family?: three or more times per week How often do you get together with friends or relatives?: once per week How often do you attend sabianism or evangelical services?: 4 or more times per year Do you belong to any clubs or organized social groups?: no Panel score (0-1 are the most socially isolated patients): 2 What type of physical activity do you participate in: walking Duration: 45-60 minutes/day Frequency: daily Erma/Caodaism: Rastafarian Special erma needs: No Seatbelt use: sometimes Helmet use: Yes Helmet use: always Drive intox or ride w/intox rolloff driver: No Do you feel safe at home: Yes Do you feel safe in your relationship?: Yes Female Reproductive History Menstrual control method: pills History History 4 Para 3 Hx # Term Pregnancies Multiple births Hx # Pregnancies Ectopic pregnancies AB induced 2 Hx Number of Living Children 2 AB spontaneous Past Pregnancies Del. Date GA/Weeks # Preg Succ Route Wgt Sex Labor Lgth Anesthesia Location Prov Complic 06/28/19 6 Delivery Date: 06/28/19 Last Updated by: Afua Grover LPN chemically induced AB, at approximate date of 06/28/19 @ [facility] Exam (ED) Limited Soft Tissue Exam PROVIDER THAT PERFORMED THE STUDY: Mary Lamb
== END 2025-03-30 13:05 | disposition home or self-care (01) ==
PROVIDERS: Emergency Provider Physician Assistant; PCP Internal Medicine
DX: L02.01 Cutaneous abscess of face (principal)
CPT/HCPCS: 99283 ×2; 10160; 87077; 87070; 87186; 87205